=== PATIENT | male | born 1935 | race Caucasian/White ===

== ENCOUNTER 2022-12-10 19:00 | Emergency (ER) | payer MEDICARE, SELFPAY ==
[2022-12-10] VITALS (13 sets, daily range): BP systolic 128–163; BP diastolic 81–121; PULSE 84–131; RESP 14–23; TEMP 36.6; O2SAT 94–99; BMI 22.0
--- NOTE | 2022-12-10 19:03 | CT_ITS ---
We are attempting to reach an attending provider to discuss findings. An addendum with communication details will be sent when the communication is complete. STUDY: CT BRAIN WITHOUT CONTRAST REASON FOR EXAM: Male, 87 years old. Neuro deficit, acute, stroke suspected Individualized dose optimization techniques were used for this CT. TECHNIQUE: Transaxial CT imaging of the brain was performed without administration of intravenous contrast material. COMPARISON: None FINDINGS: There are calcifications noted in the distal vertebral arteries. There are calcifications noted in the cavernous carotid arteries. This is consistent for atherosclerotic disease. Normal calvarium. Normal soft tissues. There is mild cerebral atrophy with widening of the extra-axial spaces and ventricular dilatation. There are areas of decreased attenuation within the white matter tracts of the supratentorial brain, consistent with microvascular disease changes. Normal basal ganglia and thalami. Normal brainstem. There is mild cerebellar atrophy. There is no intracranial hemorrhage. There are no findings of an acute ischemic infarction. There is sinus disease. Left mastoidectomy changes with fluid in the left mastoid cell fluid. ASPECTS Score for Acute Strokes: 10/ CT/STROKE Brain/Head without Cont IMPRESSION: There are no acute findings. Chronic involutional changes of the brain. Electronically Signed: Tulio Lovett MD at 19:21 EST ,
--- NOTE | 2022-12-10 19:03 | CT_ITS ---
We are attempting to reach an attending provider to discuss findings. An addendum with communication details will be sent when the communication is complete. EXAM: CT ANGIOGRAPHY HEAD AND NECK WITH INTRAVENOUS CONTRAST CLINICAL INDICATION: Neuro deficit, acute, stroke suspected TECHNIQUE: [place] [facility] [place]/head and neck CT angiography protocol performed with intravenous contrast. This CT exam was performed using one or more of the following dose reduction techniques: automated exposure control, adjustment of the mA and/or kV according to patient size, and/or use of iterative reconstruction technique. This report was created using Narrative report 3KeyIt technology. MIP reconstructed images were created and reviewed. CONTRAST: IV 100mL Isovue-370 RADIATION DOSE: CTDIvol = 29.05 mGy, DLP = 647.39 mGy-cm COMPARISON: None. FINDINGS: HEAD: RIGHT ANTERIOR CEREBRAL ARTERY: Unremarkable. No significant stenosis at the visualized segments. Anterior communicating artery is present. No aneurysm. RIGHT MIDDLE CEREBRAL ARTERY: Unremarkable. No significant stenosis at the visualized segments. No aneurysm. RIGHT POSTERIOR CEREBRAL ARTERY: Unremarkable. No occlusion or significant stenosis. No aneurysm. RIGHT INTRACRANIAL INTERNAL CAROTID ARTERY: Unremarkable. No significant stenosis. No dissection or occlusion. RIGHT INTRACRANIAL VERTEBRAL ARTERY: Unremarkable. No significant stenosis. No dissection or occlusion. LEFT ANTERIOR CEREBRAL ARTERY: Unremarkable. No significant stenosis at the visualized segments. No aneurysm. LEFT MIDDLE CEREBRAL ARTERY: Unremarkable. No significant stenosis at the visualized segments. No aneurysm. LEFT POSTERIOR CEREBRAL ARTERY: Unremarkable. No occlusion or significant stenosis. No aneurysm. LEFT INTRACRANIAL INTERNAL CAROTID ARTERY: Unremarkable. No significant stenosis. No dissection or occlusion. LEFT INTRACRANIAL VERTEBRAL ARTERY: Unremarkable. No significant stenosis. No dissection or occlusion. BASILAR ARTERY: Unremarkable. No significant stenosis. No aneurysm. OTHER VASCULATURE: There is mild atherosclerotic plaque formation of the origin of the right internal carotid artery with less than 50% cross sectional diameter stenosis. ALL ABOVE CRITERIA BY NASCET. There is mild atherosclerotic plaque formation of the origin of the left internal carotid artery with less than 60% cross sectional diameter stenosis. ALL ABOVE CRITERIA BY NASCET. There is calcified plaque formation of the right cavernous carotid artery, with a mild stenosis (less than 50%). ALL ABOVE CRITERIA BY NASCET. There is calcified plaque formation of the left cavernous carotid artery, with a mild stenosis (less than 50%). ALL ABOVE CRITERIA BY NASCET. No vascular malformation. NECK: RIGHT COMMON CAROTID ARTERY: Unremarkable. No significant stenosis. No dissection or occlusion. RIGHT EXTRACRANIAL INTERNAL CAROTID ARTERY: Unremarkable. No significant stenosis. No dissection or occlusion. RIGHT EXTERNAL CAROTID ARTERY: Unremarkable. No occlusion. RIGHT EXTRACRANIAL VERTEBRAL ARTERY: Unremarkable. No significant stenosis. No dissection or occlusion. LEFT COMMON CAROTID ARTERY: Unremarkable. No significant stenosis. No dissection or occlusion. LEFT EXTRACRANIAL INTERNAL CAROTID ARTERY: Unremarkable. No significant stenosis. No dissection or occlusion. LEFT EXTERNAL CAROTID ARTERY: Unremarkable. No occlusion. LEFT EXTRACRANIAL VERTEBRAL ARTERY: Unremarkable. No significant stenosis. No dissection or occlusion. BRACHIOCEPHALIC AND SUBCLAVIAN ARTERIES: Unremarkable as visualized. No occlusion or significant stenosis. LUNG APICES: Unremarkable as visualized. HEAD and NECK: BONES/JOINTS: There are degenerative findings of the cervical spine. No discrete lytic or blastic abnormalities. SOFT TISSUES: Unremarkable. OTHER FINDINGS: Critical finding called and case discussed. CAROTID STENOSIS REFERENCE USING NASCET CRITERIA: % ICA stenosis = (1 - narrowest ICA diameter/diameter of distal cervical ICA) x 100. Mild - <50% stenosis. Moderate - 50-69% stenosis. Severe - 70-94% stenosis. Near occlusion - 95-99% stenosis. Occluded - 100% stenosis. CT/STROKE CTA Head AND Neck W/Con IMPRESSION: 1. There is mild atherosclerotic plaque formation of the origin of the right internal carotid artery with less than 50% cross sectional diameter stenosis. ALL ABOVE CRITERIA BY NASCET. 2. There is mild atherosclerotic plaque formation of the origin of the left internal carotid artery with less than 60% cross sectional diameter stenosis. ALL ABOVE CRITERIA BY NASCET. 3. There is calcified plaque formation of the right cavernous carotid artery, with a mild stenosis (less than 50%). ALL ABOVE CRITERIA BY NASCET. 4. There is calcified plaque formation of the left cavernous carotid artery, with a mild stenosis (less than 50%). ALL ABOVE CRITERIA BY NASCET. Electronically Signed: Tulio Lovett MD at 19:42 EST ,
--- NOTE | 2022-12-10 19:03 | EKG12_ITS ---
Test Reason : DYSRHYTHMIA Blood Pressure : / mmHG Vent. Rate : 124 BPM Atrial Rate : 141 BPM P-R Int : 178 ms QRS Dur : 090 ms QT Int : 280 ms P-R-T Axes : 007 -42 045 degrees QTc Int : 402 ms Atrial fibrillation Left axis deviation Inferior infarct , age undetermined Abnormal ECG Confirmed by MANJIT DAHL, BRIAN ([id number]), food editor SOFIYA CHAPA ([id number]) on 12/15/2022 12:40:04 PM Referred By: MARISSA Confirmed By:KORIN SARAVIA MD
--- NOTE | 2022-12-10 19:05 | EDS_ITS ---
HPI History of Present Illness Chief Complaint: Stroke Alert Narrative Narrative: -year-old male presenting with strokelike symptoms. Apparently at 1830 he was witnessed with these. Apparently had full left-sided weakness in the arm and leg, facial droop, slurred speech. EMS states that his daughter is a nurse and immediately reacted and called 911. Blood sugar was normal on scene he has rapidly improving symptoms. He states he still little bit weak on his left side in the arm and the leg. I do not visualize any facial droop on exam. Patient does report that he is on Coumadin. [facility] Medical History (Updated 12/10/22 @ 19:17 by Mamta Rojas) Afib Allergy/AdvReac Type Severity Reaction Status Date / Time No Known Allergies Allergy Verified 12/10/22 19:01 Social History Smoking Status: Never smoker ROS ROS ED Review of Systems ROS Unobtainable: Denies due to encephalopathy Constitutional Constitutional ED: Denies chills or fever(s) Eyes Eyes: Denies change in vision ENT ENT ED: Denies rhinorrhea or sore throat Cardiovascular Cardiovascular: Denies chest pain or palpitations Respiratory/Chest Respiratory/Chest: Denies cough or dyspnea Gastrointestinal Gastrointestinal: Denies abdominal pain, nausea or vomiting Genitourinary Genitourinary ED: Denies dysuria Neurologic Neurologic: Reports paresthesias LUE and LLE and weakness EXAM Physical Exam Const Vital Signs: 12/10/22 19:03 12/10/22 19:18 12/10/22 19:30 Temperature 97.8 F Temperature Source Temporal Pulse Rate 120 H Respiratory Rate 22 H Blood Pressure 163/121 H Blood Pressure Mean 135 Blood Pressure Source Blood Pressure Position Blood Pressure Location Pulse Ox 99 Oxygen Delivery Method Room Air Nasal Cannula Oxygen Flow Rate (L/min) 2 12/10/22 19:33 12/10/22 19:57 12/10/22 19:58 Temperature Temperature Source Pulse Rate 131 H 85 Respiratory Rate 21 H Blood Pressure 140/116 H 149/91 H 149/91 H Blood Pressure Mean 124 110 Blood Pressure Source Blood Pressure Position Blood Pressure Location Pulse Ox 94 Oxygen Delivery Method Nasal Cannula Oxygen Flow Rate (L/min) 2 12/10/22 19:44 12/10/22 19:59 12/10/22 20:14 Temperature Temperature Source Pulse Rate 87 85 87 Respiratory Rate 21 H 23 H 22 H Blood Pressure 140/85 H 138/91 H 141/119 H Blood Pressure Mean 103 106 126 Blood Pressure Source Monitor Monitor Monitor Blood Pressure Position Semi-Fowlers Semi-Fowlers Semi-Fowlers Blood Pressure Location Right Arm Right Arm Right Arm Pulse Ox 96 94 94 Oxygen Delivery Method Nasal Cannula Nasal Cannula Nasal Cannula Oxygen Flow Rate (L/min) 2 2 12/10/22 20:29 12/10/22 20:44 12/10/22 20:59 Temperature Temperature Source Pulse Rate 84 94 87 Respiratory Rate 14 22 H 21 H Blood Pressure 161/95 H 163/85 H Blood Pressure Mean 117 111 Blood Pressure Source Monitor Monitor Blood Pressure Position Semi-Fowlers Semi-Fowlers Blood Pressure Location Right Arm Right Arm Pulse Ox 97 95 97 Oxygen Delivery Method Room Air Room Air Room Air Oxygen Flow Rate (L/min) 12/10/22 21:14 12/10/22 21:29 Temperature Temperature Source Pulse Rate 91 91 Respiratory Rate 20 H 22 H Blood Pressure 128/81 H 147/92 H Blood Pressure Mean 96 110 Blood Pressure Source Monitor Monitor Blood Pressure Position Semi-Fowlers Semi-Fowlers Blood Pressure Location Right Arm Right Arm Pulse Ox 96 97 Oxygen Delivery Method Room Air Room Air Oxygen Flow Rate (L/min) Positive well nourished HEENT Reports moist mucous membranes Eyes PERRL and EOMs intact bilaterally Chest Wall inspection of chest normal Resp normal respiratory effort and clear to auscultation bilaterally Auscultation: rales and rhonchi Cardio Rate: tachycardic Rhythm: abnormal rhythm irregularly irregular GI normal to inspection, nondistended, normoactive bowel sounds Back/Spine no CVA tenderness Psych mental status grossly normal Skin no wounds NIHSS NIHSS Initial: 1a Level of Consciousness: 0 1b LOC Questions (Score 2 if aphasic/stupor): 0 1c LOC Commands (Only score 1st attempt): 0 2 Best Gaze (If aphasic, use reflexive mvmts.): 0 3 Visual: 0 4 Facial Palsy: 0 5 Motor Arm Right (UN = amputation/fusion): 0 5 Motor Arm Left: 0 6 Motor Leg Right: 0 6 Motor Leg Left: 1 7 Limb ataxia (Only + if out of proportion): 1 8 Sensory (Aphasia/stupor=0 or 1, coma=2): 1 9 Best Language: 1 10 Dysarthria (mute, coma=2, intubated=UN): 1 11 Extinction and Inattention (only scored if +): 0 Total Score: 5 MDM MDM MDM Narrative Medical decision making narrative: MildPresenting with acute strokelike symptoms. He does appear to be rapidly improving on my initial examination he was met at the door weakness in the left arm and the left leg but was able to hold his up off the bed. He stated that sensation was intact. He had no facial droop at that time. On reevaluation after he was sent for CT imaging entering back into the room his NIH stroke scale score was about the same but started worsening while getting neurologic exam by [facility]. I was called back to the room and the patient acutely had worsening in the left arm, left facial droop and slurred speech and even though the patient is on Coumadin Dr. Carlos stated that as long as his INR was less than 1.7 we should still give him tPA given his deficits. This was discussed at length with the family. They are amenable to this. INR returned at 1.3. To 138/91 prior to giving tenecteplase. CBC was obtained and shows no leukocytosis, hemoglobin medically stable. Platelets within normal limits. INR again subtherapeutic at 1.3. Renal function and electrolytes appear to be at baseline. CT of the brain and CTA were both negative for acute intracranial findings. Patient became acutely worse after receiving tenecteplase and on reevaluation he was having more facial drooping on the left, left arm drift and there was concern that he was deteriorating and was taken back to CT to have repeat CT of the brain performed and this is negative for acute findings as well. On reevaluation now currently after his NIH stroke score has improved to a 3. Given the patient's presentation and symptoms were improving we did go ahead and have him transferred to [facility] so if there is any further neurologic changes he can be assessed by neurosurgeon. Family was amenable to this they signed appropriate transfer paperwork. Patient also had A-fib today was given 20 mg of Cardizem which controlled his heart rate. Impression: 1. Strokelike symptoms 2. A-fib with RVR 3. Subtherapeutic INR Lab Data Attestation: I reviewed the patient's lab results. Labs: Laboratory Results - last 24 hr 12/10/22 12/10/22 12/10/22 19:15 19:15 19:15 WBC 9.4 RBC 4.26 L Hgb 13.5 Hct 41.4 MCV 97.2 H MCH 31.7 MCHC 32.6 RDW Std Deviation 49.1 H RDW Coeff of Jonn 14.0 Plt Count 282 MPV 9.0 Immature Gran % (Auto) 0.300 Neut % (Auto) 70.2 H Lymph % (Auto) 15.9 L [place] % (Auto) 9.7 Eos % (Auto) 3.5 Baso % (Auto) 0.4 Absolute Neuts (auto) 6.6 Absolute Lymphs (auto) 1.49 Nucleated RBC % 0 PT 15.9 H INR 1.3 APTT 34.3 Sodium 135 L Potassium 4.3 Chloride 101 Carbon Dioxide 26.0 Anion Gap 8 BUN 22 H Creatinine 1.27 Estim Creat Clear Calc 44.39 Est GFR (MDRD) Af Amer 69 Est GFR (MDRD) Non-Af 57 L BUN/Creatinine Ratio 17.3 Glucose 132 H Calcium 8.5 Troponin I High Sens 17 Radiography Diagnostic Testing: Clinical Impression(s) from Imaging Studies Brain CT 12/10/22 19:03 IMPRESSION: There are no acute findings. Chronic involutional changes of the brain. Electronically Signed: Tulio Lovett MD at 19:21 EST , ADDENDUM: 12/10/22 192 IMPRESSION: There are no acute findings. Chronic involutional changes of the brain. N.B. : The above Results were Read Back by Tulio Lovett MD to Gideon Velasquez MD, and understanding confirmed on 12/10/2022 19:22:15 (ET). Electronically Signed: Tulio Lovett MD at 19:21 EST , Head/Neck CTA 12/10/22 19:03 IMPRESSION: 1. There is mild atherosclerotic plaque formation of the origin of the right internal carotid artery with less than 50% cross sectional diameter stenosis. ALL ABOVE CRITERIA BY NASCET. 2. There is mild atherosclerotic plaque formation of the origin of the left internal carotid artery with less than 60% cross sectional diameter stenosis. ALL ABOVE CRITERIA BY NASCET. 3. There is calcified plaque formation of the right cavernous carotid artery, with a mild stenosis (less than 50%). ALL ABOVE CRITERIA BY NASCET. 4. There is calcified plaque formation of the left cavernous carotid artery, with a mild stenosis (less than 50%). ALL ABOVE CRITERIA BY NASCET. Electronically Signed: Tulio Lovett MD at 19:42 EST , ADDENDUM: 12/10/221948 IMPRESSION: 1. There is mild atherosclerotic plaque formation of the origin of the right internal carotid artery with less than 50% cross sectional diameter stenosis. ALL ABOVE CRITERIA BY NASCET. 2. There is mild atherosclerotic plaque formation of the origin of the left internal carotid artery with less than 60% cross sectional diameter stenosis. ALL ABOVE CRITERIA BY NASCET. 3. There is calcified plaque formation of the right cavernous carotid artery, with a mild stenosis (less than 50%). ALL ABOVE CRITERIA BY NASCET. 4. There is calcified plaque formation of the left cavernous carotid artery, with a mild stenosis (less than 50%). ALL ABOVE CRITERIA BY NASCET. N.B. : The above Results were Read Back by Tulio Lovett MD to Gideon Velasquez MD, and understanding confirmed on 12/10/2022 19:42:41 (ET). Electronically Signed: Tulio Lovett MD at 19:42 EST , Brain CT 12/10/22 20:23 IMPRESSION: There are no acute findings. Chronic involutional changes of the brain. Electronically Signed: Tulio Lovett MD at 20:46 EST , Stroke Documentation Questions Stroke Team Activated: Yes Reviewed Inclusion/Exclusion criteria: Yes Was Patient considered for Endovascular Intervention?: No-CTA negative, determined not to be an endovascular candidate IV Thrombolytic Administered: Yes No contraindications from thrombolytic administration: Yes Risks, Benefits, Alternatives Discussed: Yes Not given: Patient refusal: Yes Reasons for Thrombolytic Delay Care team unable to determine eligibility: Yes IV antihypertensives needed to reduce BP prior to Thrombolytic Administration: Yes Discharge Plan Triage Chief Complaint: Stroke Alert ED Provider: Gideon Velasquez Dx/Rx/DC Orders Primary Care Provider: Attila Riojas Referrals: Attila Riojas MD [Primary Care Provider] - Disposition Disposition: Acute Care Hospital Discharge Location: [facility] Discharge Date/Time: 12/10/22 21:35
[2022-12-10 19:28] LABS: Absolute Lymphocyte Count 1.49 X10^3/uL (0.83-4.51); Absolute Neutrophil Count 6.6 X10^3/uL (2.0-7.7); Basophil# 0.04 X10^3/uL; Basophil% 0.4 % (0-1); Eosinophil# 0.33 X10^3/uL; Eosinophils% 3.5 % (0-5); Hematocrit 41.4 % (40-54); Hemoglobin 13.5 g/dL (13.0-16.5); Lymphocyte # 1.49 X10^3/ul (0.83-4.51); Lymphocyte % 15.9 % (19-41); Mean Corp Hgb Conc 32.6 g/dL (32-36); Mean Corpuscular Hgb 31.7 pg (27.0-32.0); Mean Corpuscular Volume 97.2 fL (80-94); Monocyte# 0.91 X10^3/uL; Monocyte% 9.7 % (0-10); NRBC Flagged by Analyzer 0 % (0-5); Neutrophil # 6.59 X10^3/uL (2.7-7.7); Neutrophil % 70.2 % (47-70); Platelet Count 282 K/mm3 (150-450); RBC Distribution Width SD 49.1 fl (35.1-43.9); Red Blood Count 4.26 M/mm3 (4.6-6.2); White Blood Count 9.4 K/mm3 (4.4-11.0)
[2022-12-10 19:41] LABS: International Normalized Ratio 1.3; Prothrombin Time (Protime)PT. 15.9 SECONDS (11.7-14.9)
[2022-12-10 19:42] LABS: Anion Gap 8 (5-15); BUN 22 mg/dL (7-18); BUN/Creat Ratio 17.3 RATIO (10-20); Calcium,Total 8.5 mg/dL (8.5-10.1); Chloride 101 mmol/L (98-107); Creatinine, Serum 1.27 mg/dL (0.70-1.30); EST Glomerular Filtration Rate 57 mL/min (>60); Est Glom Filt Rate - Afr Amer 69 mL/min (>60); Estimated Creatinine Clearance 44.39 ml/min; Glucose 132 mg/dL (74-106); Partial Thromboplast Time 34.3 Seconds (24.1-36.2); Potassium 4.3 mmol/L (3.5-5.1); Sodium Level 135 mmol/L (136-145); Troponin-I HS 17 pg/mL (3.0-78.0)
[2022-12-10] MEDS: dilTIAZem 25 MG/5 ML Vial 20 MG IV BOLUS (19:48)
[2022-12-10] MEDS: TENECTEPLASE 2664 MG IV (19:58)
[2022-12-10] MEDS: 0.9% Normal Saline 1,000 ML 100 ML IV (20:00)
--- NOTE | 2022-12-10 20:23 | CT_ITS ---
STUDY: CT BRAIN WITHOUT CONTRAST REASON FOR EXAM: Male, 87 years old. STROKE Individualized dose optimization techniques were used for this CT. TECHNIQUE: Transaxial CT imaging of the brain was performed without administration of intravenous contrast material. COMPARISON: Study done earlier today. FINDINGS: There are calcifications noted in the distal vertebral arteries. There are calcifications noted in the cavernous carotid arteries. This is consistent for atherosclerotic disease. Normal calvarium. Normal soft tissues. There is mild cerebral atrophy with widening of the extra-axial spaces and ventricular dilatation. There are areas of decreased attenuation within the white matter tracts of the supratentorial brain, consistent with microvascular disease changes. Normal basal ganglia and thalami. Normal brainstem. There is mild cerebellar atrophy. There is no intracranial hemorrhage. There are no findings of an acute ischemic infarction. There is sinus disease. Left mastoidectomy changes with fluid in the left mastoid cell fluid. ASPECTS Score for Acute Strokes: 08/18 CT/Brain/Head without Contrast IMPRESSION: There are no acute findings. Chronic involutional changes of the brain. Electronically Signed: Tulio Lovett MD at 20:46 EST ,
--- NOTE | 2022-12-10 20:35 | HP.PCM.HOS_ITS ---
HPI - General HPI Narrative AFSANEH AMADO, is a 87 M who presents [facility] Medical History (Updated 12/10/22 @ 19:17 by Mamta Rojas) Afib Allergy/AdvReac Type Severity Reaction Status Date / Time No Known Allergies Allergy Verified 12/10/22 19:01 Social History Smoking Status: Never smoker Vital Signs Vital Signs Vital Signs: 12/10/22 19:03 12/10/22 19:18 12/10/22 19:30 Temperature 97.8 F Temperature Source Temporal Pulse Rate 120 H Respiratory Rate 22 H Blood Pressure 163/121 H Blood Pressure Mean 135 Blood Pressure Source Blood Pressure Position Blood Pressure Location Pulse Ox 99 Oxygen Delivery Method Room Air Nasal Cannula Oxygen Flow Rate (L/min) 2 12/10/22 19:33 12/10/22 19:57 12/10/22 19:58 Temperature Temperature Source Pulse Rate 131 H 85 Respiratory Rate 21 H Blood Pressure 140/116 H 149/91 H 149/91 H Blood Pressure Mean 124 110 Blood Pressure Source Blood Pressure Position Blood Pressure Location Pulse Ox 94 Oxygen Delivery Method Nasal Cannula Oxygen Flow Rate (L/min) 2 12/10/22 19:44 12/10/22 19:59 12/10/22 20:14 Temperature Temperature Source Pulse Rate 87 85 87 Respiratory Rate 21 H 23 H 22 H Blood Pressure 140/85 H 138/91 H 141/119 H Blood Pressure Mean 103 106 126 Blood Pressure Source Monitor Monitor Monitor Blood Pressure Position Semi-Fowlers Semi-Fowlers Semi-Fowlers Blood Pressure Location Right Arm Right Arm Right Arm Pulse Ox 96 94 94 Oxygen Delivery Method Nasal Cannula Nasal Cannula Nasal Cannula Oxygen Flow Rate (L/min) 2 2 Weight Weight: 73.8 kg Body Mass Index (BMI) 22.0 Results Lab / Micro Data Result Diagrams: 12/10/22 19:15 12/10/22 19:15 Labs: Laboratory Results - last 24 hr 12/10/22 19:15: WBC 9.4, RBC 4.26 L, Hgb 13.5, Hct 41.4, MCV 97.2 H, MCH 31.7, MCHC 32.6, RDW Std Deviation 49.1 H, RDW Coeff of Jonn 14.0, Plt Count 282, MPV 9.0, Immature Gran % (Auto) 0.300, Neut % (Auto) 70.2 H, Lymph % (Auto) 15.9 L, [place] % (Auto) 9.7, Eos % (Auto) 3.5, Baso % (Auto) 0.4, Absolute Neuts (auto) 6.6, Absolute Lymphs (auto) 1.49, Nucleated RBC % 0 12/10/22 19:15: PT 15.9 H, INR 1.3, APTT 34.3 12/10/22 19:15: Sodium 135 L, Potassium 4.3, Chloride 101, Carbon Dioxide 26.0, Anion Gap 8, BUN 22 H, Creatinine 1.27, Estim Creat Clear Calc 44.39, Est GFR (MDRD) Af Amer 69, Est GFR (MDRD) Non-Af 57 L, BUN/Creatinine Ratio 17.3, Glucose 132 H, Calcium 8.5, Troponin I High Sens [address] 12/10/22 19:03 IMPRESSION: There are no acute findings. Chronic involutional changes of the brain. Electronically Signed: Tulio Lovett MD at 19:21 EST , ADDENDUM: 12/10/22 1929 IMPRESSION: There are no acute findings. Chronic involutional changes of the brain. N.B. : The above Results were Read Back by Tulio Lovett MD to Gideon Velasquez MD, and understanding confirmed on 12/10/2022 19:22:15 (ET). Electronically Signed: Tulio Lovett MD at 19:21 EST , Head/Neck CTA 12/10/22 19:03 IMPRESSION: 1. There is mild atherosclerotic plaque formation of the origin of the right internal carotid artery with less than 50% cross sectional diameter stenosis. ALL ABOVE CRITERIA BY NASCET. 2. There is mild atherosclerotic plaque formation of the origin of the left internal carotid artery with less than 60% cross sectional diameter stenosis. ALL ABOVE CRITERIA BY NASCET. 3. There is calcified plaque formation of the right cavernous carotid artery, with a mild stenosis (less than 50%). ALL ABOVE CRITERIA BY NASCET. 4. There is calcified plaque formation of the left cavernous carotid artery, with a mild stenosis (less than 50%). ALL ABOVE CRITERIA BY NASCET. Electronically Signed: Tulio Lovett MD at 19:42 EST , ADDENDUM: 12/10/221948 IMPRESSION: 1. There is mild atherosclerotic plaque formation of the origin of the right internal carotid artery with less than 50% cross sectional diameter stenosis. ALL ABOVE CRITERIA BY NASCET. 2. There is mild atherosclerotic plaque formation of the origin of the left internal carotid artery with less than 60% cross sectional diameter stenosis. ALL ABOVE CRITERIA BY NASCET. 3. There is calcified plaque formation of the right cavernous carotid artery, with a mild stenosis (less than 50%). ALL ABOVE CRITERIA BY NASCET. 4. There is calcified plaque formation of the left cavernous carotid artery, with a mild stenosis (less than 50%). ALL ABOVE CRITERIA BY NASCET. N.B. : The above Results were Read Back by Tulio Lovett MD to Gideon Velasquez MD, and understanding confirmed on 12/10/2022 19:42:41 (ET). Electronically Signed: Tulio Lovett MD at 19:42 EST ,
== END 2022-12-10 21:35 | disposition short-term general hospital (02) ==
PROVIDERS: Emergency Provider Student in an Organized Health Care Education/Training Program; PCP Family Medicine; Visit Provider Student in an Organized Health Care Education/Training Program
DX: I65.23 Occlusion and stenosis of bilateral carotid arteries (principal); I48.91 Unspecified atrial fibrillation; R47.81 Slurred speech; R53.1 Weakness; R29.810 Facial weakness
CPT/HCPCS: 51702; 70450; 70496; 70498; 80048; 84484; 85025; 85610; 85730; 93005; 96361; 96374; 96375; 99285; J3101; Q9967; A4216; J3490

== ENCOUNTER 2022-12-22 12:43 | Inpatient (IN) | payer MEDICARE, BC, SELFPAY ==
[2022-12-22 12:48] VITALS: BP 115/84; PULSE 74; RESP 16; TEMP 36.2; O2SAT 96; BMI 19.0
--- NOTE | 2022-12-22 15:29 | EX.PCM.HP.RE ---
[facility] - General General Date of Admission: 12/22/22 Date of Service: 12/22/22 Chief Complaint: Post stroke debility. HPI Narrative AFSANEH AMADO, is a 87 YO M with a PMH of hypertension and atrial fibrillation (on warfarin) who presented to the ED at [facility] on 12/10/22 with c/o L side weakness in the arm/leg, facial droop and slurred speech. His daughter had called 911 and he was immediately taken to the emergency department at onset of symptoms. By the time he arrived in the emergency department his symptoms were improving. His NIHSS was 5. A noncontrast CT brain showed no acute findings. CTA of the head and neck showed mild atherosclerotic plaque formation of the origin of the right internal carotid artery with less than 50% cross-sectional diameter stenosis. There was mild atherosclerotic plaque at the origin of the left internal carotid artery with less than 60% cross-sectional diameter stenosis. There was calcified plaque of the right cavernous carotid artery with a mild stenosis estimated at less than 50% and also calcified plaque of the left cavernous carotid artery also estimated at less than 50%. Consult was obtained with [facility] teleneurology. While being interviewed by Dr. Carlos from [facility] the patient's symptoms once again acutely worsened with left arm weakness, left facial droop and slurred speech. Since his INR was only 1.3 IV tPA was recommended. He was administered tenecteplase at [facility] and again his condition worsened. He went for a NC CTB and which was negative for bleeding. He was transferred to [facility] for further neurologic tx. He was in AF while in the ED and he was given 20 mg of IV diltiazem for rate control. At arrival to [facility] his NIHSS was 1 for dysarthria. MRI at [facility] showed a punctate focus of restricted diffusion in the right frontal opercular region in keeping with a small acute infarct. Repeat CTB 24 hours after tenecteplase showed no hemorrhage. Significant lab included an LDL of 96, HDL of 35 and an hemoglobin A1c of 5.7. Since the infarct was small he was restarted on anticoagulation with Coumadin and heparin bridge. The family cannot afford Eliquis. He was maintained on statin and ASA as well. CXR at [facility] showed small BL pleural effusions with prominent R hilar node and R axillary node of uncertain significance. There was also an age indeterminant L1 superior endplate compression fracture. While at [facility] he also had a CT scan of the abdomen and pelvis with contrast that showed a wedged shaped area of hypoattenuation in the spleen concerning for infarct, prominent irregular wall thickening at the gastroesophageal junction extending into the gastric cardia and concerning for an infiltrative neoplastic lesion, multiple areas of irregular wall thickening and mucosal hyperenhancement and segments of the ileum, some of which appeared narrowed. He also had cholelithiasis and colonic diverticulosis. An EGD was apparently done on 12/19/22 but, we are told there is no report yet? A bx was done and the pathology is pending. They also do not have a report of the ECHO yet. All paperwork sent to us by [facility] was personally reviewed along with the ER physician's report from [facility] on 12/10/2022. Vital signs at presentation to rehab include blood pressure 115/84, pulse 74, temp 97.1 and he is 96% saturated on room air. [facility] Medical History (Updated 12/23/22 @ 13:[address] Eliana Sidhu DO) Afib Chronic anticoagulation HTN (hypertension) Stroke/cerebrovascular accident Home Medications apixaban 5 mg tablet 5 mg PO BID blood thinner 12/22/22 [History Last Taken Unknown] atorvastatin 40 mg tablet 40 mg PO QHS reduce cholesterol 12/22/22 [History Last Taken Unknown] hydroxyzine HCl 25 mg tablet 12.5 mg PO TID PRN Anxiety 12/22/22 [History Last Taken Unknown] losartan 50 mg tablet 50 mg PO DAILY bp 12/22/22 [History Last Taken Unknown] metoprolol tartrate 100 mg tablet 100 mg PO DAILY@2200 bp 12/22/22 [History Last Taken Unknown] metoprolol tartrate 50 mg tablet 50 mg PO DAILY bp 12/22/22 [History Last Taken Unknown] Allergy/AdvReac Type Severity Reaction Status Date / Time No Known Allergies Allergy Verified 12/10/22 19:01 Family History (Updated 12/23/22 @ 13:[address] Eliana Sidhu DO) Father Mental health problem His father and some of his brothers committed suicide. Pt tells me mental health problems go deep in the family. in his late 50's Mother Cancer She at the age of 68 from a cancer that was in her abdomen. Surgical History (Updated 12/23/22 @ 13:[address] Eliana Sidhu DO) History of appendectomy History of ear surgery History of knee surgery Social History (Updated 12/23/22 @ 13:[address] 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 [employer] Smoking Status: Never smoker alcohol intake: never substance use type: does not use ROS Constitutional Constitutional: Reports anorexia, change in weight, fatigue, weakness and weight loss; Denies chills, fever(s) or night sweats Eyes Eyes: Denies change in vision or discharge from eye(s) ENT HEENT: Denies dysphagia, epistaxis, headache(s), loss taste/smell or sore throat Cardiovascular Cardiovascular: Denies chest pain, edema, palpitations or syncope Respiratory/Chest Respiratory/Chest: Denies cough or shortness of breath at rest Gastrointestinal Gastrointestinal: Reports abdominal pain, dyspepsia, nausea, vomiting and other Details: sometimes vomits what looks like undigested food ; Denies constipation, diarrhea, hematemesis or hematochezia Genitourinary Genitourinary: Denies dysuria, hematuria, urinary frequency or urinary incontinence Musculoskeletal Musculoskeletal: Reports muscle weakness, stiffness and other Details: Weakness is more than likely due to marked weight loss since last April.......he estimates about 7 lbs a month..... confirms he has lost a lot of wt. Appetite is poor and he tells me that food does not look good. Integumentary Integumentary: Reports dry skin; Denies jaundice, pruritus, rash or wounds Neurologic Neurologic: Reports tremor(s) and other Details: Carie tells me that over the last 1-2 months he has developed tremors with exertion ; Denies abnormal speech, confusion, dizziness, focal weakness, headache(s), numbness or seizures Psychiatric Psychiatric: Reports other Details: No hallucinations or delusions. Tells me that he is sleeping well and does not feel depressed. He told the OT that he had been awake since 3 AM. ; Denies anxiety, depression, homicidal ideation or suicidal ideation Endocrine Endocrinology: Reports change in body appearance; Denies cold intolerance or heat intolerance Hematologic/Lymphatic Hematologic/Lymphatic: Reports easy bleeding and easy bruising; Denies anemia or lymphadenopathy Vital Signs Vital Signs Vital Signs: 12/22/22 12:48 Temperature 97.1 F L Temperature Source Temporal Pulse Rate 74 Respiratory Rate 16 Blood Pressure 115/84 H Blood Pressure Mean 94 Blood Pressure Source Monitor Blood Pressure Position Sitting Blood Pressure Location Right Arm Pulse Ox 96 Oxygen Delivery Method Room Air Weight Weight: 140 lb Body Mass Index (BMI) 19.0 Indicators for Scoring Admitted with or Primary Diagnosis of CVA/Stroke: Yes Hx of CVA/Stroke: Yes Modified [place] Score MRS Score at time of Evaluation: 4-Moderate/severe disability NIHSS NIHSS 1a. Level of Consciousness: Alert; keenly responsive 1b. LOC Questions: Answers BOTH questions correctly. 1c. LOC Commands: Performs both tasks correctly. 2. Best Gaze: Normal 3. Visual: No visual loss 4. Facial Palsy: Normal symmetrical movements 5a. Left Arm: No drift; arm holds 90 (or 45) degrees for full 10 seconds 5b. Right Arm: No drift; arm holds 90 (or 45) degrees for full 10 seconds 6a. Left Leg: No drift; leg holds 30-degree position for full 5 seconds 6b. Right Leg: No drift; leg holds 30-degree position for full 5 seconds 7. Limb Ataxia: Absent 8. Sensory: Normal; no sensory loss 9. Best Language: No aphasia; normal 10. Dysarthria: [id number] dysarthria; 11. Extinction and Inattention: No abnormality Total: 1 Stroke Questions Stroke Team Activated: No Physical Exam Const Constitutional Narrative: He is awake, looks very fatigued. Sitting in the recliner at the bedside and does not appear to be in any distress. Lunch is in front of him and he barely touched it......sample maker hand sent up a magic cup and an Ensure Clear for him. General Appearance: cooperative HEENT normocephalic and head/scalp atraumatic Mouth: dry mucous membranes Eyes EOMs intact bilaterally Neck no lymphadenopathy, supple, no JVD and no carotid bruits General: trachea midline Lymph Lymphatic: no lymphadenopathy noted and no lymphedema noted Resp normal respiratory effort, normal air movement and clear to auscultation bilaterally Effort and Inspection: Negative for tachypneic Cardio no gallops Cardio Narrative: He has a systolic MM at the second right intercostal space that radiates to the apex. The rhythm is irreg, irreg. Heart sounds are a little distant, hua for someone so thin GI normal to inspection, nondistended, normoactive bowel sounds, soft to palpation, non-tender and non-distended GI Narrative: no guarding with palpation. Extremity no calf tenderness General Extremity: Negative for clubbing, cyanosis or edema Skin General Skin Exam: no breakdown Rashes: no rashes Neuro CN's II-XII intact bilaterally Neuro Narrative: He has no sensory deficits, no visual field cuts and no ataxia. He does have generalized weakness. Having some trouble following simple commands like, hold your breath and follow my finger with your eyes and don/t move your head. He has slurred speech. Coordination / Balance: [id number] test normal and [id number] test normal Motor Exam: general weakness Psych cooperative, denies homicidal ideation and denies suicidal ideation Psych Narrative: Very flat affect. Does not make eye contact with me when he is talking with me. Tends to ramble and lose concentration/focus at times. Seems to be quite intelligent when I am talking to him. OT made a comment that he is not aware of his deficits and he fatigues easily. Appearance: appropriate Results Lab / Micro Data Result Diagrams: 12/23/22 06:42 12/23/22 06:42 Assessment & Plan Assessment/Plan (1) Physical debility: (2) Stroke/cerebrovascular accident: PLAN: Punctate focus of restricted diffusion in the right frontal opercular region in keeping with a small acute infarct on MRI. (3) Afib: PLAN: Chronic persistent. (4) Weight loss, unintentional: (5) Abnormal CT of the abdomen: PLAN: We contacted [facility] for results of the EGD, ECHO and path reports and were told there are no reports yet. Will continue to call daily until we have these reports. (6) Nausea & vomiting: PLAN: Etiology undetermined at this time. (7) HTN (hypertension): (8) Compression fracture of L1 lumbar vertebra: (9) Macrocytosis without anemia: (10) Chronic anticoagulation: PLAN: Currently on Eliquis. PLAN: Plan PLAN PT for gait stability OT for ADL's ST for evaluation Analgesics as needed Bowel protocol Fall precautions Assess for Anxiety/Depression GI prophylaxis - he did not come to us on anything for prophylaxis.....this makes me think there is no gastritis or PUD or esophagitis on the EGD. DVT prophylaxis - He is on Eliquis 5 mg BID for recent embolic stroke due to AF with subtherapeutic INR. Follow up with PCP, cardiology, neurology following DC from [facility]. I am suspicious he may have CA.......additional F/U as needed will be arranged prior to DC. AM lab including CMP, CBC, Mag and Phos - personally reviewed. Will also get a TSH in light of unintentional wt loss and AF with RVR. Obtain records from PCP Obtain the results of the EGD, ECHO and the path report from biopsies taken at the time of EGD. Try Reglan for nausea at 2.5 mg TID AC. He eats well for breakfast but for the rest of the day he is nauseated and does not even want to look at food. Hesitant about admitting to early satiety. Charges/Coding Visit Charges Inpatient E&M: 00479 Init Hosp L3
--- NOTE | 2022-12-22 16:02 | REHABEVAL_ITS ---
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 Status Changes from Prescreening?: No changes Identified Actual Problem List:: Cognitve Impr/Memory Loss, Bowel, Incontinence, Alteration in Nutrition, Mobility Impaired, Self Care Deficit, BP, Hypertension, Fluid Change-Dehydration and Alteration-Leisure Activ. Potential Problem List:: DVT, Bleeding, Infection, UTI, Aspiration, Falls, Skin Integrity and Depression Risk of Complications DVT: SHERRY Hose and - (Eliquis 5 mg p.o. twice daily) Bleeding: Monitor Lab Values, Nursing to Teach Precautions for anti-coagulation therapy., Wound, if applicable, to be assessed every shift. and Stroke patients assessed for lethargy or change in status. Infection: Clinical Staff to Monitor for S/S of infection: and S/S of infection include fever, redness, warmth, etc. Urinary Tract Infection: Monitor for frequency, burning, discomfort, or incontinence. and Nursing will obtain urine sample for urinalysis and C&S when ordered. Aspiration: Clinical staff will monitor for coughing, drooling, congestion., Speech will evaluate swallowing and dsyphasia. and Nursing will monitor patient swallowing during meals. Falls: Patient will be evaluated for Fall Precautions and Patient will be placed on Fall Precautions as indicated per protocol. Skin Breakdown: Nursing will assess skin daily using assessment tool. and Nursing will place on Skin Breakdown Precautions as indicated. Pain: Clinical staff will assess patient's pain level per protocol., Medications will be given, if needed, and the pain level reassessed. and Other methods: Massage, distraction, decrease stimulus, etc. used PRN. Plan of Care Patient requires physician specializing in physical medicine and rehab oversight to provide close medical supervision of rehab issues including: Pain Management, Sleep Problems, Bowel and Bladder, Medical and co-morbidity Management, DVT prophylaxis, Rehabilitation Leadership and Coordination of treatment team Patient needs Physical Therapy: For a minimum of 1 hour and At least 5 out of 7 days Patient needs Physical Therapy to improve:: Mobility, Strengthening, Transfers, Stretching, ROM, Endurance, Stairs, Gait and Balance Patient needs Occupational Therapy: For a minimum of 1 hour and At least 5 out of 7 days Patient needs Occupational Therapy to improve ADL's incl.: Eating, Grooming, Bathing, Dressing, Toileting, Toilet transfers, Community Reintegration, Higher functioning activities, Household tasks, Adaptive Equipment, Splinting and Other activities as determined Patient requires speech therapy: For a minimum of 1 hour and At least 5 out of 7 days Patient requires speech therapy for: Swallowing, Cognition, Language Skills and Compensatory Strategies Patient requires 24/7 Rehabilitation Nursing for: Pain Issues, Identifying and preventing risk factors, Monitoring and reporting current medical conditions, Assisting with ambulation, transfer, and all ADL's, Teaching patients about disease process and medications, Family teaching, Providing safe environment, Bowel and Bladder Issues, Skin integrity and Medication Management Patient needs Respiratory Care Specialist/ Case Management for: Discharge Planning, Arranging Home Equipment or Services and Family Interventions Patient needs Dietary and Nutrition Services for: Adequate Nutrition, Nutritional Supplements and Nutritional Education Goals Patient will remain: free from falls and or injury at time of discharge. Patient will perform bed mobility at: MOD I level of assist. Patient will complete transfers from bed to chair at: MOD I level of assist. Patient will ambulate: with LRD and - (350 feet on various surfaces at standby assist) Patient will complete upper body dressing at: MOD I level of assist. Patient will complete lower body dressing at: MOD I level of assist. Patient will complete toileting at: MOD I level of assist. Patient will perform bathing at: MOD I level of assist. Patient will complete grooming at: MOD I level of assist. Patient will complete home management skills at: MOD I level of assist. Patient will achieve: - (1 curb step and 12 steps with 2 handrails at standby assist to allow access to his bedroom at home. ) Patient will have pain level of: of 3 or less Patient's skin will: remain intact Patient will receive: adequate nutrition. Discharge Planning Pt Prognosis for Sig. Practical Improv. w/in Reasonable Time: Good Estimated Length of stay (days): 21 Anticipated D/C Destination: Home with Outpt Therapy Was Preadmission Assessment Accurate?: Yes
[2022-12-22 16:30] VITALS: O2SAT 96
--- NOTE | 2022-12-22 18:02 | NURSING ---
Son, , and patient aware of rehab routine. Patient alert and oriented but needs some cognitive cues to complete tasks.
[2022-12-22 20:00] VITALS: BP 117/63; PULSE 72; RESP 17; TEMP 37.3; O2SAT 97
[2022-12-22] MEDS: Atorvastatin Calcium 40 MG Tablet PO (21:52)
[2022-12-22 21:53] VITALS: BP 117/63; PULSE 72
[2022-12-22] MEDS: Metoprolol Tartrate 100 MG Tablet PO (21:53)
[2022-12-22] MEDS: APIXABAN 5 MG TABLET PO (21:54)
[2022-12-23] VITALS (7 sets, daily range): BP systolic 117–140; BP diastolic 66–71; PULSE 73–85; RESP 16; TEMP 36.5–37.3; O2SAT 94–99; BMI 19.0
--- NOTE | 2022-12-23 03:49 | NURSING ---
Reviewed and agree with Stephenie RAMESH, documentation and assessment charting.
--- NOTE | 2022-12-23 05:58 | NURSING ---
staff to assist pt with getting a shower and when dressing pt reports that he is feeling weak and dizzy. pt reports that this happens from time to time. pt escorted over the to recliner and blood sugar taken and was found to be 83. bp was 140/71 and ap was 79. pt stated he thought that it was d/t all the movement in the shower and the heat. pt given orange juice and instructed to drink it all and pt acknowledged. pt reports that since he has been in the recliner he is feeling better. rn made aware .
[2022-12-23 06:31] LABS: Bedside Glucose 83 mg/dL (74-106)
[2022-12-23 06:58] LABS: Hematocrit 43.1 % (40-54); Hemoglobin 13.8 g/dL (13.0-16.5); Mean Corpuscular Hgb 32.1 pg (27.0-32.0); Mean Corpuscular Volume 100.2 fL (80-94); Mean Platelet Vol. 8.9 fl (6.2-12.0); Platelet Count 339 K/mm3 (150-450); RBC Distribution Width CV 14.9 % (11.6-14.6); RBC Distribution Width SD 52.4 fl (35.1-43.9); White Blood Count 8.8 K/mm3 (4.4-11.0)
[2022-12-23 07:25] LABS: ALB/GLOB Ratio 0.8 RATIO (0.9-2.4); AST(SGOT) 20 U/L (15-37); Alanine Aminotransfer ALT/SGPT 20 U/L (16-61); Albumin, Serum 3.1 g/dL (3.2-5.0); Alkaline Phosphatase 63 U/L (45-117); Anion Gap 8 (5-15); BUN 46 mg/dL (7-18); BUN/Creat Ratio 37.7 RATIO (10-20); Calcium,Total 9.1 mg/dL (8.5-10.1); Chloride 108 mmol/L (98-107); Creatinine, Serum 1.22 mg/dL (0.70-1.30); EST Glomerular Filtration Rate 60 mL/min (>60); Est Glom Filt Rate - Afr Amer 73 mL/min (>60); Estimated Creatinine Clearance 39.89 ml/min; Globulin 3.9 g/dL (2.2-4.2); Glucose 92 mg/dL (74-106); Magnesium 2.3 mg/dL (1.6-2.6); Potassium 4.9 mmol/L (3.5-5.1); Sodium Level 143 mmol/L (136-145)
[2022-12-23] MEDS: Losartan Potassium 50 MG Tablet PO (09:48)
[2022-12-23] MEDS: Ensure Plus High Protein 120 ML LIQUID PO ×2 (09:49→20:23)
[2022-12-23] MEDS: Senna/Docusate Sodium 1 Tablet 2 TABLET PO (09:49)
[2022-12-23] MEDS: APIXABAN 5 MG TABLET PO ×2 (09:49→20:22)
[2022-12-23] MEDS: Metoprolol Tartrate 50 MG Tablet PO (09:50)
--- NOTE | 2022-12-23 11:20 | PN_ITS ---
Subjective Subjective Afebrile - He had 1 temp of 99.2 last night. He denies having fevers or night sweats or shaking chills. VSS - BP is controlled, HR is WNL Maintaining appropriate oxygen saturation on RA Oral intake is poor for supper last night.....he ate only 25-49% but, he ate 75- 100% of his breakfast this AM. Tells me that breakfast is his best meal......after that he gets nauseated even looking at food. Wt today is 140.4........it was supposedly 162 on 12/10/22. He told me yesterday that he has been losing 7 lbs a month since last April. Discussed with nursing - no problems that need addressed Reviewed the PT/OT/ST notes Medication list reviewed. The note from [facility] states he will be on Coumadin however, they sent him to us on Eliquis which they said he could not afford. Will need to check with his insurance provider. All labs from this AM was personally reviewed. White blood cell count and platelet count are within normal limits. Hemoglobin is normal at 13.8 and the MCV is elevated at 100.2. Phosphorus, magnesium and calcium are all within normal limits. LFTs are unremarkable with the exception of a mildly increased total bilirubin at 1.2. Girish denies lightheadedness, vertigo, CP, SOB at rest, SOB with exertion, cough, abd pain, diarrhea, constipation, dysuria, calf pain and ankle swelling. He does c/o nausea.....no vomiting since admission to rehab. He was incontinent of stool today. Fatigues very easily and he has generalized weakness. Objective Data Objective Data Vital Signs: Vital Signs Temp Pulse Resp BP Pulse Ox O2 Del Method 99.1 F 73 16 140/71 H 99 Room Air 12/23/22 08:16 12/23/22 09:50 12/23/22 08:16 12/23/22 08:16 12/23/22 08:16 12/23/22 08:16 Oxygen Delivery Method Room Air Weight: 140 lb 6.951 oz Body Mass Index (BMI) 19.0 Intake & Output: Intake and Output for Last 24 Hours 12/21/22 12/22/22 12/23/22 23:59 23:59 23:59 Intake Total 120 / 120 Output Total 200 / 200 350 / 350 Balance -200 / -200 -230 / -230 Lab / Micro Data Result Diagrams: 12/23/22 06:42 12/23/22 06:42 Labs: Laboratory Results - last 24 hr 12/23/22 05:40: POC Glucose 83 12/23/22 06:42: WBC 8.8, RBC 4.30 L, Hgb 13.8, Hct 43.1, MCV 100.2 H, MCH 32.1 H , MCHC 32.0, RDW Std Deviation 52.4 H, RDW Coeff of Jonn 14.9 H, Plt Count 339, MPV 8.9 12/23/22 06:42: Sodium 143, Potassium 4.9, Chloride 108 H, Carbon Dioxide 27.0, Anion Gap 8, BUN 46 H, Creatinine 1.22, Estim Creat Clear Calc 39.89, Est GFR (MDRD) Af Amer 73, Est GFR (MDRD) Non-Af 60, BUN/Creatinine Ratio 37.7 H, Glucose 92, Calcium 9.1, Phosphorus 3.0, Magnesium 2.3, Total Bilirubin 1.20 H, AST 20, ALT 20, Alkaline Phosphatase 63, Total Protein 7.0, Albumin 3.1 L, Globulin 3.9, Albumin/Globulin Ratio 0.8 L Physical Exam Const Constitutional Narrative: appears fatigued but he is appropriate and able to converse with me. General Appearance: cooperative HEENT Mouth: dry mucous membranes Resp normal respiratory effort and clear to auscultation bilaterally Effort and Inspection: Negative for tachypneic Cardio Cardio Narrative: Irregular irregular rhythm with controlled ventricular response and no gallops. GI normal to inspection, nondistended, normoactive bowel sounds, soft to palpation and non-tender GI Narrative: No guarding with palpation Extremity no calf tenderness General Extremity: Negative for edema Skin Skin Narrative: many areas of ecchymosis on the UE's hua. No very large areas. General Skin Exam: no breakdown Rashes: no rashes Wounds: Negative for wounds noted Assessment & Plan Assessment/Plan (1) Physical debility: (2) Stroke/cerebrovascular accident: PLAN: Punctate focus of restricted diffusion in the right frontal opercular region in keeping with a small acute infarct on MRI. (3) Afib: PLAN: Chronic persistent. (4) Weight loss, unintentional: (5) Abnormal CT of the abdomen: PLAN: We contacted [facility] for results of the EGD, ECHO and path reports and were told there are no reports yet. Will continue to call daily until we have these reports. (6) Nausea & vomiting: PLAN: Etiology undetermined at this time. (7) HTN (hypertension): (8) Compression fracture of L1 lumbar vertebra: (9) Macrocytosis without anemia: (10) Chronic anticoagulation: PLAN: Currently on Eliquis. PLAN: Plan 1. Continue therapy 2. Discussed with the dietitian and she is going to provide nutritional supplements that are high in calories and high in protein in light of severe protein calorie malnutrition. I would like to see what he weighed on his most recent PCP visit and we have requisitioned from Dr. Riojas. 3. He presents as being depressed with flat affect, poor eye contact, trouble focusing, poor appetite BUT pt and deny depression. He also told the OT he is having trouble sleeping and has been awake since 3 AM. Will continue to monitor closely over the next few days........may discuss and antidepressant with him if he is not sleeping. Would use Remeron in light of insomnia and poor appetite. 4. Obtain the results of EGD and ECHO done at [facility] and also the bx report from path. 5. await the results of the TSH and if it is abn will check a T4 and a T3. Charges/Coding Visit Charges Inpatient E&M: 32831 Subs Hosp L2
--- NOTE | 2022-12-23 13:43 | NURSING ---
Medical records request faxed to [facility] per Dr. Sidhu
[2022-12-23 14:51] LABS: Thyroid Stim Hormone (TSH) 9.73 uIU/mL (0.358-3.74)
--- NOTE | 2022-12-23 15:02 | CASEMGMT ---
Social Work Attempted to visit pt to complete assessment. Pt asleep. Judy Del Rosario, [employer]
--- NOTE | 2022-12-23 15:31 | CHAPLAIN ---
Type of Pastoral Visit _x__ Initial Visit ___ Follow-up Visit ___ On-call Visit ___ General Patient Visit ___ Spiritual Assessment ___ Family Conference ___ Bereavement ___ Rapid Response ___ Code Blue ___ Other (describe below) Pastoral Care Referral From _x__ Patient _x__ Family ___ Nurse ___ Physician ___ Chief Librarian Extension Department ___ Microbiology Teacher ___ Other (describe below) Sacrament/Intervention ___ Active listening ___ Anointing ___ Yarsani ___ Bereavement ___ Communion ___ Natalia exploration ___ ___ Life review _x__ Prayer ___ Reconciliation ___ Sacrament of Sick _x__ Supportive presence ___ Wedding ___ Other (describe below) Pastoral Comments patient was sleeping but awoke to his name; pt responded to this wet room worker but kept his eyes closed; pt stated that he was fine but a prayer would be fine; prayer offered; pt denied more needs and was ready for more nap time
[2022-12-23 16:32] LABS: T4 Free Direct 1.12 ng/dL (0.76-1.46)
[2022-12-23] MEDS: Metoclopramide 5 MG TABLET 2.5 MG PO (16:36)
--- NOTE | 2022-12-23 18:24 | NURSING ---
Request faxed for medical records to Dr. Riojas's office with Any Ibarra per Dr. Sidhu request.
[2022-12-23] MEDS: Atorvastatin Calcium 40 MG Tablet PO (20:22)
[2022-12-23] MEDS: Metoprolol Tartrate 100 MG Tablet PO (20:22)
--- NOTE | 2022-12-24 03:00 | NURSING ---
0230 pt bed alarm going off, by the time staff got to the room pt was half way to the br . pt finished on the toilet and then moved to room 409 for increased monitoring. fall strategies in place. earlier pt was found at the foot of the bed with pants off attempting to get shoes on to go to the br . bed alarm had been going off as well then. when questioned pt is aware of what button to push to call for assistance, but doesn't when getting up to go to the br. family still need to be notified of the room change
--- NOTE | 2022-12-24 03:59 | NURSING ---
Reviewed and agree with Stephenie RAMESH, documentation and assessment charting.
[2022-12-24] MEDS: Metoclopramide 5 MG TABLET 2.5 MG PO (08:13)
[2022-12-24] MEDS: APIXABAN 5 MG TABLET PO (08:18)
[2022-12-24] MEDS: Ensure Plus High Protein 120 ML LIQUID PO (09:41)
--- NOTE | 2022-12-24 09:52 | SP.MBSS_ITS ---
Modified Barium Swallow - Patient Information Study Date: 12/24/22 Study Time: 09:00 Direct Billable Minutes: 90 Total Minutes procedure & reportin Diagnosis: Dysphagia/CVA Referring Physician: Eliana Sidhu Reason for Referral: Objective assessment of swallow function recommended following clinical bedside swallow evaluation which revealed suspected pharyngeal dysfunction/aspiration Medical History: AFSANEH AMADO, is a 87 YO M with a PMH of hypertension and atrial fibrillation (on warfarin) who presented to the ED at [facility] on 12/10/22 with c/o L side weakness in the arm/leg, facial droop and slurred speech. His daughter had called 911 and he was immediately taken to the emergency department at onset of symptoms. By the time he arrived in the emergency department his symptoms were improving. His NIHSS was 5. A noncontrast CT brain showed no acute findings. CTA of the head and neck showed mild atherosclerotic plaque formation of the origin of the right internal carotid artery with less than 50% cross-sectional diameter stenosis. There was mild atherosclerotic plaque at the origin of the left internal carotid artery with less than 60% cross-sectional diameter stenosis. There was calcified plaque of the right cavernous carotid artery with a mild stenosis estimated at less than 50% and also calcified plaque of the left cavernous carotid artery also estimated at less than 50%. Consult was obtained with [facility] teleneurology. While being interviewed by Dr. Carlos from [facility] the patient's symptoms once again acutely worsened with left arm weakness, left facial droop and slurred speech. Since his INR was only 1.3 IV tPA was recommended. He was administered tenecteplase at [facility] and again his condition worsened. He went for a NC CTB and which was negative for bleeding. He was transferred to [facility] for further neurologic tx. He was in AF while in the ED and he was given 20 mg of IV diltiazem for rate control. At arrival to [facility] his NIHSS was 1 for dysarthria. MRI at [facility] showed a punctate focus of restricted diffusion in the right frontal opercular region in keeping with a small acute infarct. Repeat CTB 24 hours after tenecteplase showed no hemorrhage. Significant lab included an LDL of 96, HDL of 35 and an hemoglobin A1c of 5.7. Since the infarct was small he was restarted on anticoagulation with Coumadin and heparin bridge. The family cannot afford Eliquis. He was maintained on statin and ASA as well. CXR at [facility] showed small BL pleural effusions with prominent R hilar node and R axillary node of uncertain significance. There was also an age indeterminant L1 superior endplate compression fracture. While at [facility] he also had a CT scan of the abdomen and pelvis with contrast that showed a wedged shaped area of hypoattenuation in the spleen concerning for infarct, prominent irregular wall thickening at the gastroesophageal junction extending into the gastric cardia and concerning for an infiltrative neoplastic lesion, multiple areas of irregular wall thickening and mucosal hyperenhancement and segments of the ileum, some of which appeared narrowed. He also had cholelithiasis and colonic diverticulosis. An EGD was apparently done on 12/19/22 but, we are told there is no report yet? A bx was done and the pathology is pending. They also do not boyle ve a report of the ECHO yet. Current Diet Ordered: regular/thin Dentition: Natural Teeth Mental Status: Impaired - able to follow commands for participation in MBS w/ need for repetitive cueing to maintain appropriate body positioning Respiratory Status: Oxygenating on Room Air - Penetration-Aspiration Scale Penetration-Aspiration Scale: OBJECTIVE ASSESSMENT OF SWALLOW FUNCTION (QUANTITATIVE ? PER TRIAL): PENETRATION / ASPIRATION SCALE (JUNIOR): 1 = does not enter airway 2 = enters airway/above vocal folds/ejected 3 = enters airway/above vocal folds/not ejected 4 = enters airway/contacts vocal folds/ejected 5 = enters airway/contacts vocal folds/not ejected 6 = enters airway/below vocal folds/ejected 7 = enters airway/below vocal folds/not ejected despite effort 8 = enters airway/below vocal folds/no effort VIDEOFLOROSCOPIC SCALE SCORE (JUNIOR): Grade I = aspiration of material that has penetrated into the laryngeal vestibule, intact cough reflex Grade II = aspiration < 10 % of the bolus, intact cough reflex Grade III = aspiration of < 10 % of the bolus, reduced cough reflex or aspiration of > 10 % of the bolus, intact cough reflex Grade IV = aspiration of > 10 % of the bolus, reduced cough reflex - Penetration-Aspiration Scale Score Thin Liquid via teaspoon Result: 1= does not enter airway Thin Liquid via teaspoon Trial 2 Result: 2= enter airway/above vocal folds/ejected Thin Liquid via small single sip from cup Result: 6= enters airway/below vocal folds/ejected Thin Liquid via small single sip from cup Trial 2 Result: 6= enters airway/below vocal folds/ejected Thin Liquid via small single sip from cup Effortful swallow Result: 4= enters airway/contacts vocal folds/ejected [place] Thick Liquid via small single sip from cup Result: 1= does not enter airway [place] Thick Liquid via small single sip from cup Trial 2 Result: 1= does not enter airway Pudding Result: 2= enter airway/above vocal folds/ejected Cookie Result: 1= does not enter airway [place] Thick Liquid via small single sip from cup Trial 3 Result: 1= does not enter airway - Oral Phase Labial Seal: Interlabial escape, no progression to anterior lip Tongue Control During Bolus Hold: Cohesive bolus between tongue to palatal seal Bolus Preparation/Mastication: Slow prolonged chewing/mashing with complete recollection Bolus Transport/Lingual Motion: Slowed tongue motion Oral Residue: Trace residue lining oral structures - Pharyngeal Phase Initiation of Pharyngeal Swallow: Bolus head in valleculae Soft Palate Elevation: No bolus between soft palate and pharyngeal wall Laryngeal Elevation: Partial superior movement thyroid cart/partial apprx aryt- epig petiole Anterior Hyoid Excursion: Partial anterior movement Epiglottic Movement: Partial inversion Laryngeal Vestibule Closure at Height of Swallow: Incomplete; narrow column of air/contrast in laryngeal vestibule Pharyngeal Stripping Wave: Present - diminished Pharyngoesophageal Segment Opening: Parital distension and partial duration; parital obstruction of flow Tongue Base Retraction: Wide column of contrast between tongue base & post. pharyngeal wall Pharyngeal Residue: Majority of contrast within or on pharyngeal structures - Esophageal Phase Esophageal Clearance: Esophageal retention w/ retrograde flow below pharyngoesophageal seg. - Diagnosis/Impression Diagnosis: moderate oropharyngeal dysphagia Impression: The oral phase is characterized by: -slowed mastication and slowed lingual motion for A-P bolus transportation -sufficient oral clearance w/ trace residue retention The pharyngeal phase is characterized by: -swallow onset when the bolus reaches the valleculae -reduced hyolaryngeal excursion resulting in incomplete epiglottic inversion and reduced PES distention contributing to significant pharyngeal bolus retention -+75% of cookie bolus remained w/in the valleculae requiring additional swallow and liquid wash to aid in clearance -trialed a left head turn which was effective to partially clear vallecular st asis w/ cookie but resulted in penetration to the vocal folds w/ pharyngeal residue during the swallow w/ left head turn -thin liquids penetrated the laryngeal vestibule during the swallow contacting the vocal folds -thin liquid pharyngeal residue which lined the aryepiglottic folds and pooled in the pyriform sinuses entered the laryngeal vestibule post-prandially w/ aspiration below the folds transiently -the patient was sensate to penetration/aspiration w/ a throat clearing response elicited following all penetration/aspiration events; throat clear was effective to eject contrast from below the vocal folds but did not clear it from the laryngeal vestibule -diminished pharyngeal stripping wave w/ contrast lining the posterior pharyngeal wall The esophageal phase is characterized by: -slowed esophageal clearance w/ retrograde bolus flow below the PES - Recommendations Diet: Regular Textures - Easy to chew, [place]-thick Liquids Comment: Compensatory Strategies: staff supervision w/ meals, cue to double swallow w/ solids, follow solids w/ a sip of liquid, seated at 90 degrees during intake, remain upright at 90 degrees for 30 minutes after intake Recommend Repeat Modified Barium Swallow: TBD Need for Skilled Speech Therapy Services: Yes Comment: Skilled ST intervention is recommended for management of oropharyngeal dysphagia. TX is necessary for skilled diet analysis, assessment of compensatory strategy use and instruction of oropharyngeal strengthening exercises - toney, effortful swallow, marita, chin tuck against resistance. Would consider implementation of Nam Free Water Protocol following patient education re: same. Education Completed: 1. Described result of evaluation., 7. Pt requires further education on strategies & risks. - Status Active ST Patient: Active - Contact Information [facility] Speech Therapy:: Ariana Wen M.A., CCC-CONSUMER LENDING MANAGER [facility] [address] [place] [address] [phone] [email or web address]
[2022-12-24 10:00] VITALS: BP 89/49; PULSE 54; RESP 16; TEMP 36.7; O2SAT 100
[2022-12-24 10:08] VITALS: BP 86/49; BP 87/50; BP 95/45; PULSE 56; PULSE 67; PULSE 74
--- NOTE | 2022-12-24 10:10 | PN_ITS ---
Subjective Subjective Afebrile VSS - BP dropped to 86/49 this AM with a MAP of 61. HR was 56 - he is on high dose Beta Kirstin for AF with RVR. Lopressor was held. Tilt test is negative today. Maintaining appropriate oxygen saturation on RA Oral intake is very poor Discussed with nursing - Black melanotic stool today. Heme + Had an emesis today with no hematemesis. HGB was 13.8 yesterday but, he is dehydrated. Reviewed the PT/OT/ST notes - had a MBS today and did poorly, report reviewed. Medication list reviewed. T4 is normal but, TSH is elevated at 9.73. He denies abd pain but, he feels terrible. Very drowsy today and grimacing. He was also tearful and is frustrated........has not felt well since last April. Denies CP and SOB. He is very tired. Objective Data Objective Data Vital Signs: Vital Signs Temp Pulse Resp BP Pulse Ox O2 Del Method O2 Flow Rate 97.7 F L 56 L 16 86/49 L 94 Nasal Cannula 2 12/23/22 20:31 12/24/22 10:08 12/23/22 20:31 12/24/22 10:08 12/23/22 20:39 12/24/22 10:00 12/24/22 10:00 Oxygen Flow Rate (L/min) 2 Oxygen Delivery Method Nasal Cannula Weight: 140 lb 6.951 oz Body Mass Index (BMI) 19.0 Intake & Output: Intake and Output for Last 24 Hours 12/22/22 12/23/22 12/24/22 23:59 23:59 23:59 Intake Total 120 / 120 200 / 200 Output Total 200 / 200 650 / 650 Balance -200 / -200 -530 / -530 200 / 200 Medical Nutrition Assessment Dietitian: Malnutrition Criteria Met Start: 12/23/22 13:09 Freq: Status: Active Protocol: Document 12/23/22 13:09 RMA (Rec: 12/23/22 13:09 RMA [id number]) Nutrition Malnutrition Evidence of Malnutrition Exists Yes Malnutrition (severe): Acute Illness/Injury Evidenced By Suboptimal Energy Intake ( Severe),Weight Loss (Severe), Physical Changes (Moderate) Clinical Problem Acute Disease or Injury Related Malnutrition Etiology Severe protein-calorie malnutrition in the context of acute disease/stroke related to inadequate oral intake Signs/Symptoms as evidenced by ~14% wt loss x 2 weeks, PO meeting less than 50% estimated nutrition needs and moderate muscle/fat wasting in the clavicle, face, orbitals, hands and legs Status Active Problem Recommendation Dietitian Recommendations/Changes Will liberalize diet to regular/no added salt due to signs/symptoms of malnutrition . Recommend SOUND ENGINEER evaluation for best texture/consistency of solids and liquids. Will continue 120ml ensure plus high protein 4 times per day w/ medpass. Will add 240 ml ensure clear BID w/ breakfast and dinner. Will add 1 magic cup w/ lunch. Adjust ONS as needed. Trend weight closely. Lab / Micro Data Result Diagrams: 12/23/22 06:42 12/23/22 06:42 Labs: Laboratory Results - last 24 hr 12/23/22 06:42: TSH 9.73 H 12/23/22 06:42: Free T4 1.12 Micro: Microbiology 12/24/22 07:45 Stool Stool Occult Blood (POPPY) - Final Occult Blood Positive Physical Exam Const Constitutional Narrative: Very drowsy but does arouse when I shake his shoulder. He appears very fatigued. When I told him about the bleeding in his GI tract he became tearful. He did not complain of abdominal pain but, he feels terrible. He was sitting in the recliner sleeping when I entered the room. General Appearance: cooperative HEENT normocephalic and head/scalp atraumatic HEENT Narrative: palpebral conjunctiva has decent color and the nail beds have fair cap refill Mouth: dry mucous membranes Eyes EOMs intact bilaterally Neck no lymphadenopathy, supple, no JVD and no carotid bruits General: trachea midline Lymph Lymphatic: no lymphadenopathy noted and no lymphedema noted Resp normal respiratory effort, normal air movement and clear to auscultation bilaterally Resp Narrative: Shallow respirations but, Maintaining appropriate oxygen saturation on room air. Nursing applied 2 L of nasal O2 because of the GI bleed. He is not tachypneic and breathing is not labored. Effort and Inspection: Negative for tachypneic Cardio no gallops Cardio Narrative: Irregular irregular rhythm with controlled ventricular response. No gallops GI normal to inspection, nondistended, normoactive bowel sounds, soft to palpation, non-tender and non-distended GI Narrative: Bowel sounds are more active than yesterday but I would not describe as hypera ctive. The ab is not distended and he had no guarding with palpation. Extremity no calf tenderness General Extremity: Negative for edema Skin Skin Narrative: many areas of ecchymosis on the UE's hua. No very large areas. General Skin Exam: dry skin Rashes: no rashes Wounds: Negative for wounds noted Neuro CN's II-XII intact bilaterally Neuro Narrative: He has no sensory deficits, no visual field cuts and no ataxia. He does have generalized weakness. Having some trouble following simple commands like, hold your breath and follow my finger with your eyes and don/t move your head. He has slurred speech. Coordination / Balance: [id number] test normal and [id number] test normal Motor Exam: general weakness Psych cooperative, denies homicidal ideation and denies suicidal ideation Psych Narrative: tearful looks overwhelmed Appearance: appropriate Mood & Affect: flat affect Assessment & Plan Assessment/Plan (1) Physical debility: (2) Stroke/cerebrovascular accident: PLAN: Punctate focus of restricted diffusion in the right frontal opercular region in keeping with a small acute infarct on MRI. (3) Afib: PLAN: Chronic persistent. (4) Weight loss, unintentional: (5) Abnormal CT of the abdomen: PLAN: We contacted [facility] for results of the EGD, ECHO and path reports and were told there are no reports yet. Will continue to call daily until we have these reports. (6) Nausea & vomiting: PLAN: Etiology undetermined at this time. We have been calling daily to [facility] to obtain the EGD report, echo report and results of the biopsies done and EGD but have not received any documentation yet. We will continue to try. (7) Chronic anticoagulation: PLAN: Eliquis was placed on hold today. (8) UGI bleed: (9) Hypotension: (10) Dehydration: (11) Severe protein-calorie malnutrition: PLAN: Plan 1. Hold further therapy today 2. Type and screen for blood products 3. Start Protonix 40 mg IV every 12 hours 4. Make n.p.o. except for sips of water occasionally 5. 500 cc bolus of normal saline and then repeat blood pressure. If blood pressure is still low we will give an additional bolus and if not we will continue IV normal saline at 110 cc/h 6. Stat CBC without differential 7. Consult Dr. Boone -he responded and will be up to see the patient today. 8. I discussed need for EGD to determine source of bleeding and the patient is agreeable to this and to consult with Dr. Boone. I will discuss with his Carie. 9. Vital signs every hour x4 10. Await the results of the hemoglobin today and if it has dropped we will order serial H&H. 11. I would prefer he is in bed but, he is more comfortable in the recliner. 12. May need to transfer to acute side of the hospital if he destabilizes. Charges/Coding Visit Charges Inpatient E&M: 85105 Subs Hosp L3
[2022-12-24 10:59] LABS: Hematocrit 35.7 % (40-54); Hemoglobin 11.4 g/dL (13.0-16.5); Mean Corp Hgb Conc 31.9 g/dL (32-36); Mean Corpuscular Hgb 32.8 pg (27.0-32.0); Mean Corpuscular Volume 102.6 fL (80-94); Mean Platelet Vol. 9.3 fl (6.2-12.0); Platelet Count 316 K/mm3 (150-450); RBC Distribution Width CV 14.9 % (11.6-14.6); RBC Distribution Width SD 53.3 fl (35.1-43.9); Red Blood Count 3.48 M/mm3 (4.6-6.2); White Blood Count 12.1 K/mm3 (4.4-11.0)
[2022-12-24] MEDS: 0.9% Saline Lock 10 ML Syringe IV ×2 (11:28→12:14)
[2022-12-24] MEDS: 0.9% Normal Saline 1,000 ML 110 ML IV ×2 (12:14→20:07)
[2022-12-24 13:58] VITALS: BP 127/67; PULSE 65
--- NOTE | 2022-12-24 16:03 | CASEMGMT ---
Social Work Attempted to complete assessment. Pt unavailable. Entered information using chart review. Judy Del Rosario, BAND SEWER MOTOR PATROL OPERATOR
[2022-12-24 17:15] LABS: Hemoglobin 10.7 g/dL (13.0-16.5)
--- NOTE | 2022-12-24 17:43 | CON.PCM.GI_ITS ---
HPI Consult Data Date of Consult: 12/24/22 HPI Narrative Reason for Consultation: GI bleed HPI Narrative: AFSANEH AMADO, is a 87 M who presents to [facility] rehabilation department after suffering a CVA. He is currently on warfarin. He was recently discharged from [facility]. While at [facility] he also had a CT scan of the abdomen and pelvis with contrast that showed a wedged shaped area of hypoattenuation in the spleen concerning for infarct, prominent irregular wall thickening at the gastroesophageal junction extending into the gastric cardia and concerning for an infiltrative neoplastic lesion, multiple areas of irregular wall thickening and mucosal hyperenhancement and segments of the ileum, some of which appeared narrowed .? He also had cholelithiasis and colonic diverticulosis.? An EGD was apparently done on 12/19/22. The report from the upper endoscopy had shown a gastric polyp and gastric cardia of the stomach that was biopsied. It did not appear to be neoplastic in nature. Also noted was some thickening at the GE junction possi nakul secondary to achalasia. He had some inflammation consistent with gastritis in the gastric antrum that was also biopsied. H. pylori staining and his still pathology for gastric intestinal metaplasia was pending. Recommendations were work-up for possible motility abnormalities such as gastroparesis. Today he had some black stool and had episodes of vomiting. His last hgb is 10.6 and it was previously 13.5. [facility] Medical History (Updated 12/24/22 @ 10:[address] Eliana Sidhu, ) Afib Chronic anticoagulation HTN (hypertension) Stroke/cerebrovascular accident Home Medications apixaban 5 mg tablet 5 mg PO BID blood thinner 12/22/22 [History Last Taken Unknown] atorvastatin 40 mg tablet 40 mg PO QHS reduce cholesterol 12/22/22 [History Last Taken Unknown] hydroxyzine HCl 25 mg tablet 12.5 mg PO TID PRN Anxiety 12/22/22 [History Last Taken Unknown] losartan 50 mg tablet 50 mg PO DAILY bp 12/22/22 [History Last Taken Unknown] metoprolol tartrate 100 mg tablet 100 mg PO DAILY@2200 bp 12/22/22 [History Last Taken Unknown] metoprolol tartrate 50 mg tablet 50 mg PO DAILY bp 12/22/22 [History Last Taken Unknown] Allergy/AdvReac Type Severity Reaction Status Date / Time No Known Allergies Allergy Verified 12/10/22 19:01 Family History (Updated 12/23/22 @ 13:[address] Eliana Sidhu DO) Father Mental health problem His father and some of his brothers committed suicide. Pt tells me mental health problems go deep in the family. in his late 50's Mother Cancer She at the age of 68 from a cancer that was in her abdomen. Surgical History (Updated 12/23/22 @ 13:[address] Eliana Sidhu DO) History of appendectomy History of ear surgery History of knee surgery Social History (Updated 12/23/22 @ 13:[address] 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 [employer] Smoking Status: Never smoker alcohol intake: never substance use type: does not use ROS Constitutional Constitutional: Reports anorexia, change in weight, fatigue, weakness and weight loss; Denies chills, fever(s) or night sweats Eyes Eyes: Denies change in vision or discharge from eye(s) ENT HEENT: Denies dysphagia, epistaxis, headache(s), loss taste/smell or sore throat Cardiovascular Cardiovascular: Denies chest pain, edema, palpitations or syncope Respiratory/Chest Respiratory/Chest: Denies cough or shortness of breath at rest Gastrointestinal Gastrointestinal: Reports abdominal pain, dyspepsia, nausea, vomiting and other Details: sometimes vomits what looks like undigested food ; Denies constipation, diarrhea, hematemesis or hematochezia Genitourinary Genitourinary: Denies dysuria, hematuria, urinary frequency or urinary incontinence Musculoskeletal Musculoskeletal: Reports muscle weakness, stiffness and other Details: Weakness is more than likely due to marked weight loss since last April.......he estimates about 7 lbs a month..... confirms he has lost a lot of wt. Appetite is poor and he tells me that food does not look good. Integumentary Integumentary: Reports dry skin; Denies jaundice, pruritus, rash or wounds Neurologic Neurologic: Reports tremor(s) and other Details: Carie tells me that over the last 1-2 months he has developed tremors with exertion ; Denies abnormal speech, confusion, dizziness, focal weakness, headache(s), numbness or seizures Psychiatric Psychiatric: Reports other Details: No hallucinations or delusions. Tells me that he is sleeping well and does not feel depressed. He told the OT that he had been awake since 3 AM. ; Denies anxiety, depression, homicidal ideation or suicidal ideation Endocrine Endocrinology: Reports change in body appearance; Denies cold intolerance or heat intolerance Hematologic/Lymphatic Hematologic/Lymphatic: Reports easy bleeding and easy bruising; Denies anemia or lymphadenopathy Physical Exam Const General Appearance: cooperative HEENT normocephalic and head/scalp atraumatic HEENT Narrative: palpebral conjunctiva has decent color and the nail beds have fair cap refill Mouth: dry mucous membranes Eyes EOMs intact bilaterally Neck no lymphadenopathy, supple, no JVD and no carotid bruits General: trachea midline Lymph Lymphatic: no lymphadenopathy noted and no lymphedema noted Resp normal respiratory effort, normal air movement and clear to auscultation bilaterally Resp Narrative: Shallow respirations but, Maintaining appropriate oxygen saturation on room air. Nursing applied 2 L of nasal O2 because of the GI bleed. He is not tachypneic and breathing is not labored. Effort and Inspection: Negative for tachypneic Cardio no gallops Cardio Narrative: Irregular irregular rhythm with controlled ventricular response. No gallops GI normal to inspection, nondistended, normoactive bowel sounds, soft to palpation, non-tender and non-distended GI Narrative: Bowel sounds are more active than yesterday but I would not describe as hyperactive. The ab is not distended and he had no guarding with palpation. Extremity no calf tenderness General Extremity: Negative for edema Skin Skin Narrative: many areas of ecchymosis on the UE's hua. No very large areas. General Skin Exam: dry skin Rashes: no rashes Wounds: Negative for wounds noted Neuro CN's II-XII intact bilaterally Neuro Narrative: He has no sensory deficits, no visual field cuts and no ataxia. He does have generalized weakness. Having some trouble following simple commands like, hold your breath and follow my finger with your eyes and don/t move your head. He has slurred speech. Coordination / Balance: [id number] test normal and [id number] test normal Motor Exam: general weakness Psych cooperative, denies homicidal ideation and denies suicidal ideation Psych Narrative: tearful looks overwhelmed Appearance: appropriate Mood & Affect: flat affect Medical Records Data Medical Nutrition Assessment Dietitian: Malnutrition Criteria Met Start: 12/23/22 13:09 Freq: Status: Active Protocol: Document 12/23/22 13:09 RMA (Rec: 12/23/22 13:09 RMA [id number]) Nutrition Malnutrition Evidence of Malnutrition Exists Yes Malnutrition (severe): Acute Illness/Injury Evidenced By Suboptimal Energy Intake ( Severe),Weight Loss (Severe), Physical Changes (Moderate) Clinical Problem Acute Disease or Injury Related Malnutrition Etiology Severe protein-calorie malnutrition in the context of acute disease/stroke related to inadequate oral intake Signs/Symptoms as evidenced by ~14% wt loss x 2 weeks, PO meeting less than 50% estimated nutrition needs and moderate muscle/fat wasting in the clavicle, face, orbitals, hands and legs Status Active Problem Recommendation Dietitian Recommendations/Changes Will liberalize diet to regular/no added salt due to signs/symptoms of malnutrition . Recommend [employer] evaluation for best texture/consistency of solids and liquids. Will continue 120ml ensure plus high protein 4 times per day w/ medpass. Will add 240 ml ensure clear BID w/ breakfast and dinner. Will add 1 magic cup w/ lunch. Adjust ONS as needed. Trend weight closely. Lab / Micro Data Result Diagrams: 12/24/22 17:00 12/23/22 06:42 Labs: Laboratory Results - last 24 hr 12/24/22 10:46: WBC 12.1 H, RBC 3.48 L, Hgb 11.4 L, Hct 35.7 L, MCV 102.6 H, MCH 32.8 H, MCHC 31.9 L, RDW Std Deviation 53.3 H, RDW Coeff of Jonn 14.9 H, Plt Count 316, MPV 9.3 12/24/22 12:25: Blood Type A POSITIVE, Antibody Screen NEGATIVE 12/24/22 17:00: Hgb 10.7 L, Hct 32.0 L Micro: Microbiology 12/24/22 07:45 Stool Stool Occult Blood (POPPY) - Final Occult Blood Positive Assessment & Plan Assessment/Plan (1) Stroke/cerebrovascular accident: (2) Afib: PLAN: Chronic persistent. Anticoagulation on hold. (3) Weight loss, unintentional: PLAN: He should undergo an upper endoscopy and possibly colonoscopy. We will do upper endoscopy tomorrow. (4) Abnormal CT of the abdomen: PLAN: Awaiting official CT scan. (5) Nausea & vomiting: PLAN: Likely secondary to infiltrative disease at the level of GE junction and extending into the gastric cardia of the stomach. (6) Chronic anticoagulation: PLAN: Eliquis was placed on hold today. (7) UGI bleed: PLAN: Upper GIUpper GI bleed could be secondary to the biopsy sites that were t aken during his recent upper endoscopy approximately 5 days ago. Recommend continue PPI and n.p.o. past midnight. (8) Hypotension: (9) Severe protein-calorie malnutrition: Charges/Coding Visit Charges Inpatient E&M: 98699 SNF Init L2
[2022-12-24 19:40] VITALS: BP 125/55; PULSE 92; RESP 18; TEMP 37.1; O2SAT 97
[2022-12-24 22:50] VITALS: BMI 19.0
[2022-12-25] VITALS (15 sets, daily range): BP systolic 111–140; BP diastolic 49–95; PULSE 90–107; RESP 16–90; TEMP 36.3–37.1; O2SAT 89–99; BMI 19.0
[2022-12-25] MEDS: 0.9% Normal Saline 1,000 ML 110 ML IV (05:22)
[2022-12-25 06:41] LABS: Anion Gap 9 (5-15); BUN 64 mg/dL (7-18); BUN/Creat Ratio 51.6 RATIO (10-20); Calcium,Total 8.4 mg/dL (8.5-10.1); Chloride 115 mmol/L (98-107); Creatinine, Serum 1.24 mg/dL (0.70-1.30); EST Glomerular Filtration Rate 59 mL/min (>60); Est Glom Filt Rate - Afr Amer 71 mL/min (>60); Estimated Creatinine Clearance 39.24 ml/min; Glucose 95 mg/dL (74-106); Potassium 4.1 mmol/L (3.5-5.1); Sodium Level 147 mmol/L (136-145)
[2022-12-25 07:45] LABS: Hematocrit 29.9 % (40-54); Hemoglobin 9.7 g/dL (13.0-16.5)
[2022-12-25] MEDS: Metoprolol Tartrate 50 MG Tablet PO (08:43)
--- NOTE | 2022-12-25 08:47 | PCM.PN.BLA ---
Progress Note Afebrile VSS-heart rate is in the 90s today. He had no metoprolol yesterday. Blood pressure this morning is 139/49. Maintaining appropriate oxygen saturation on RA Fluid balance for 10/23/2023 is +2437. Discussed with nursing - no problems that need addressed. No stools last night. Reviewed the PT/OT/ST notes Medication list reviewed. All lab from today was personally reviewed. Hemoglobin is 9.7 today, down from 11.4 yesterday morning. Sodium is increased at 147 and the potassium is 4.1. The BUN is 64, up from 46 on 12/23/2022 and the creatinine is stable at 1.24. The Increase in the BUN is more likely than not due to UPI bleed. I reviewed Dr. Boone's consult and the plan is for EGD today. I reviewed the operative note from the EGD and the impressions were grade a erosive esophagitis, oozing gastric ulcers with pigmented material that were treated with a heater probe, nonbleeding gastric ulcers with no stigmata of bleeding which were biopsied. There were no gross lesions in the first portion of the duodenum. Patient will be on ice chips only today. He is much more alert than yesterday. able to answer my questions. Having some difficulty following simple commands. ST feels he may have some underlying dementia as the cognitive deficit is more than what she would anticipate from the stroke. Girish denies nausea today and he also denies abd pain, CP, SOB, lightheadedness. He denies cephalgia. Physical Exam Const Constitutional Narrative: He is alert today and talking with his . Much better color in his face today. Having a lot of trouble following simple commands, even when repeated multiple times. His tells me that she has not noticed any problem with mentation prior to the stroke. she is the one in the family that takes care of finances, bills, etc. Girish still goes to work everyday. He does forget names but, she does not find this unusual. General Appearance: cooperative Resp normal respiratory effort, normal air movement and clear to auscultation bilaterally Effort and Inspection: Negative for tachypneic Cardio no gallops Cardio Narrative: Irregular irregular rhythm with controlled ventricular response. No gallops GI normal to inspection, nondistended, normoactive bowel sounds, soft to palpation, non-tender and non-distended Extremity no calf tenderness General Extremity: Negative for edema Skin Skin Narrative: many areas of ecchymosis on the UE's hua. No very large areas. General Skin Exam: no breakdown and dry skin Rashes: no rashes Neuro CN's II-XII intact bilaterally Assessment & Plan Assessment/Plan (1) Physical debility: (2) Stroke/cerebrovascular accident: PLAN: Punctate focus of restricted diffusion in the right frontal opercular region in keeping with a small acute infarct on MRI. (3) Afib: PLAN: Chronic persistent. (4) Weight loss, unintentional: (5) Abnormal CT of the abdomen: PLAN: We contacted [facility] for results of the EGD, ECHO and path reports and were told there are no reports yet. Will continue to call daily until we have these reports. (6) Nausea & vomiting: PLAN: Etiology undetermined at this time. We have been calling daily to [facility] to obtain the EGD report, echo report and results of the biopsies done and EGD but have not received any documentation yet. We will continue to try. (7) Chronic anticoagulation: PLAN: Eliquis was placed on hold today. (8) UGI bleed: (9) Hypotension: (10) Dehydration: (11) Severe protein-calorie malnutrition: (12) Gastric ulcer: PLAN: Plan 1. Chips today and advance tomorrow if no further bleeding 2. continue IV Protonix 40 mg once a day 3. Recheck a CBC in the AM 4. Continue therapy 5. start Remeron 7.5 mg Q HS 6. Monitor weights and calorie intake closely 7. Needs a w/U for treatable causes of dementia at some point. Visit Charges Inpatient E&M: 79178 Subs Hosp L2
[2022-12-25] MEDS: Lactated Ringers 1,000 ML 15 ML IV (11:05)
--- NOTE | 2022-12-25 12:21 | OP.EGD_ITS ---
Patient Name: Girish Hartman Procedure Date: 12/25/2022 11:46 AM Date of : 1935 Age: 87 Procedure: Upper GI endoscopy Indications: Iron deficiency anemia, Hematemesis, Melena Providers: Jean-Pierre Boone DO Medicines: Monitored Anesthesia Care Patient Profile: This is an 87 year old male. Refer to note in patient chart for documentation of history and physical. Patient has symptoms of acute epigastric abdominal pain and acute nausea. Complications: No immediate complications. Procedure: Pre-Anesthesia Assessment: - Prior to the procedure, a History and Physical was performed, and patient medications and allergies were reviewed. The patient is competent. The risks and benefits of the procedure and the sedation options and risks were discussed with the patient. All questions were answered and informed consent was obtained. Patient identification and proposed procedure were verified by the physician. Mental Status Examination: alert and oriented. Airway Examination: normal oropharyngeal airway and neck mobility. Prophylactic Antibiotics: The patient does not require prophylactic antibiotics. Prior Anticoagulants: The patient has taken no previous anticoagulant or antiplatelet agents. After reviewing the risks and benefits, the patient was deemed in satisfactory condition to undergo the procedure. The anesthesia plan was to use monitored anesthesia care (MAC). Immediately prior to administration of medications, the patient was re-assessed for adequacy to receive sedatives. The heart rate, respiratory rate, oxygen saturations, blood pressure, adequacy of pulmonary ventilation, and response to care were monitored throughout the procedure. The physical status of the patient was re-assessed after the procedure. After obtaining informed consent, the endoscope was passed under direct vision. Throughout the procedure, the patient's blood pressure, pulse, and oxygen saturations were monitored continuously. The gastroscope was introduced through the mouth, and advanced to the second part of duodenum. The upper GI endoscopy was accomplished without difficulty. The patient tolerated the procedure well. Scope In: 11:57:26 AM Scope Out: 12:11:55 PM Total Procedure Duration Time 0 hours 14 minutes 29 seconds Findings: LA Grade A (one or more mucosal breaks less than 5 mm, not extending between tops of 2 mucosal folds) esophagitis with no bleeding was found 36 to 38 cm from the incisors. Four oozing cratered gastric ulcers with pigmented material were found in the gastric fundus. The largest lesion was 3 mm in largest dimension. Coagulation for hemostasis using heater probe and Hemospray was successful. Two non-bleeding linear gastric ulcers with no stigmata of bleeding were found at the incisura. The largest lesion was 5 mm in largest dimension. Biopsies were taken with a cold forceps for histology. Verification of patient identification for the specimen was done. Estimated blood loss was minimal. No gross lesions were noted in the first portion of the duodenum. Impression: - LA Grade A erosive esophagitis. - Oozing gastric ulcers with pigmented material. Treated with a heater probe. - Non-bleeding gastric ulcers with no stigmata of bleeding. Biopsied. - No gross lesions in the first portion of the duodenum. Recommendation: - [facility]. - Use Protonix (pantoprazole) 40 mg IV daily for 5 days. - Only ice chips today - Continue present medications. Procedure Code(s): --- Professional --- 08667, 59, Esophagogastroduodenoscopy, flexible, transoral; with control of bleeding, any method 95763, 51, Esophagogastroduodenoscopy, flexible, transoral; with biopsy, single or multiple CPT copyright 2017 [employer]. All rights reserved. The codes documented in this report are preliminary and upon senior manager mmcoe review may be revised to meet current compliance requirements. Jean-Pierre Boone DO 12/25/2022 12:21:28 PM This report has been signed electronically. Number of Addenda: 0 Note Initiated On: 12/25/2022 11:46 AM
--- NOTE | 2022-12-25 12:21 | OP.CCLET_ITS ---
12/25/2022 Attila Riojas Re : Upper GI endoscopy procedure for Girish Pantoja Shine This procedure was performed on December. My impressions and recommendations are as follows: Impressions : - LA Grade A erosive esophagitis. - Oozing gastric ulcers with pigmented material. Treated with a heater probe. - Non-bleeding gastric ulcers with no stigmata of bleeding. Biopsied. - No gross lesions in the first portion of the duodenum. Recommendations : - [facility]. - Use Protonix (pantoprazole) 40 mg IV daily for 5 days. - Only ice chips today - Continue present medications. My findings are described in the full procedure note, which is enclosed. If I can be of further assistance, please feel free to contact me at . Sincerely, Jean-Pierre Boone, 12/25/2022 12:21:28 PM This report has been signed electronically.
--- NOTE | 2022-12-25 12:30 | SUR.PHASEI ---
PT COUGHING UP SPUTUM, SUCTIONING WITH YANKAUER.
--- NOTE | 2022-12-25 12:47 | CASEMGMT ---
Social Work IDT met with for patient's Team meeting. Pt off unit for procedure. Attempted to conference all son and dtr but both unavailable. Discussed with , patient's progress in PT/OT/ST/SN. Educated to Medicare approval for 13 days with [facility] 01/04. Goal is for pt to DC home with . However, pt may need continued therapy and nursing care at a SNF prior to home. SW to offer options closer to DC timeframe with IDT recommendations. Will ReTeam weekly. SW to continue to follow for DC planning. Judy Del Rosario, [employer]PL[employer] REPAIRER
--- NOTE | 2022-12-25 13:30 | IMM_PTH ---
PATIENT: AFSANEH AMADO LOC: RU U#:[id number] AGE/SX: 87/M ROOM: [facility] RE12/22/[address]: Dr. Eliana Sidhu DO : 1935 BED: 1 DIS: 01/04/2023 SPEC #: [id number] RECD: 12/25/22 14:23 STATUS: JEANNA REAng #: [id number] SUE: 12/25/22 13:[address]: Ra Melyhsaan DEPT: IMMUNOHISTOCHEMISTRY RECD BY: Yanet Duarte ENTERED: 12/25/22 14:24 SP TYPE: IMMUNO OTHR DR: DO Dr. Attila Camejo MD Tissues: Gastric fundus Procedures: H Pylori (initial) PHYSICIAN & INSTITUTION [place] [id number] SPECIMEN INFORMATION: Tissue Source: Fundus biopsy Clinical Info: Upper GI bleed Specimen Number: [id number] CPT code: 12151 METHODOLOGY: Deparaffinized sections of prefer/formalin-fixed tissue or PAP/DQ stained slides are incubated with monoclonal/polyclonal antibodies/oligonucleotide probes. Localization is made via biotin free immunoperoxidase method. Appropriate controls are performed and reacted as expected. Results on target cell population are indicated in the following table: RESULTS: ANTIBODY / CLONE RESULT H Pylori (polyclonal) negative These tests were developed and their performance characteristics determined by [facility]. They may not have been cleared or approved by the U.S. Food and Drug Administration. The FDA has determined that such clearance or approval is not necessary. The above immunohistochemical/dualISH markers are ordered and reviewed by the Pathologist. INTERPRETATION: Gastric fundus, biopsy: Negative for Helicobacter pylori organisms. SJ:ross 12/26/2022
--- NOTE | 2022-12-25 13:30 | EGD_PTH ---
PATIENT: AFSANEH AMADO LOC: U#:[id number] AGE/SX: 87/M ROOM: [facility] RE12/22/[address]: Dr. Eliana Sidhu DO : 1935 BED: 1 DIS: 01/04/2023 SPEC #: [id number] RECD: 12/25/22 13:35 STATUS: JEANNA OREN #: [id number] SUE: 12/25/22 13:[address]: Jean-Pierre Boone DEPT: SURGICAL PATHOLOGY RECD BY: Luann Escobar ENTERED: 12/25/22 14:05 SP TYPE: EGD BIOPSY OTHR DR: DO Dr. Attila Camejo MD Tissues: Gastric fundus Procedures: Special Stain Group II Surgery Specimen Level IV Alcian Blue/PAS (control) Comments: @ Ordering doctor for SUIV edited from to @ by BRE at 12/25/22 1424 @ Submitting doctor edited from to @ by CECILIAOD at 12/25/22 1424 HEADER OPERATION: EGD ([facility] [place]) with biopsies and hemostasis PRE-OP DIAGNOSIS: Upper GI bleed TISSUE SUBMITTED: Fundus biopsy MICROSCOPIC DIAGNOSIS Fundus, biopsy: Fragments of gastric mucosa with focal ulceration, fibrinous exudation and acute and chronic inflammation. Focal intestinal metaplasia (goblet cell metaplasia). See comment. PAUL:ross 12/26/2022 COMMENT The results of immunohistochemistry for Helicobacter pylori will be reported separately ([id number]). Alcian blue/PAS stain with matched control is used in the evaluation of the specimen. MICROSCOPIC DESCRIPTION Slides are reviewed. GROSS DESCRIPTION Received in fixative is one container labeled with the patient's name and designated fundus biopsy. The specimen consists of multiple irregular fragments of light luis soft tissue that in aggregate measure 0.8 x 0.5 x 0.1 cm. The specimen is totally submitted in one cassette. / PAUL:ross 12/25/2022 TC:2 CPT: 95321, 48852
[2022-12-25] MEDS: Lactated Ringers 1,000 ML 100 ML IV (16:34)
[2022-12-25] MEDS: 0.9% Saline Lock 10 ML Syringe IV (16:34)
[2022-12-25] MEDS: Metoprolol Tartrate 100 MG Tablet PO (21:30)
[2022-12-25] MEDS: Atorvastatin Calcium 40 MG Tablet PO (21:30)
[2022-12-25] MEDS: Mirtazapine 15 MG Tablet 7.5 MG PO (21:30)
[2022-12-26] MEDS: Lactated Ringers 1,000 ML 100 ML IV (02:37)
--- NOTE | 2022-12-26 03:56 | NURSING ---
Pt restless this hs and found awake for most of hs. Pt tearful at times with some confusion present. Pt found resting soundly at this time. Staff will continue to monitor.
[2022-12-26 05:56] LABS: Hematocrit 31.5 % (40-54); Hemoglobin 10.2 g/dL (13.0-16.5); Mean Corp Hgb Conc 32.4 g/dL (32-36); Mean Corpuscular Hgb 32.9 pg (27.0-32.0); Mean Corpuscular Volume 101.6 fL (80-94); Mean Platelet Vol. 8.7 fl (6.2-12.0); Platelet Count 295 K/mm3 (150-450); RBC Distribution Width CV 15.5 % (11.6-14.6); RBC Distribution Width SD 54.4 fl (35.1-43.9); White Blood Count 11.2 K/mm3 (4.4-11.0)
[2022-12-26 06:30] LABS: Anion Gap 7 (5-15); BUN 41 mg/dL (7-18); BUN/Creat Ratio 32.5 RATIO (10-20); Calcium,Total 8.7 mg/dL (8.5-10.1); Chloride 116 mmol/L (98-107); Creatinine, Serum 1.26 mg/dL (0.70-1.30); EST Glomerular Filtration Rate 58 mL/min (>60); Est Glom Filt Rate - Afr Amer 70 mL/min (>60); Estimated Creatinine Clearance 38.62 ml/min; Glucose 97 mg/dL (74-106); Potassium 4.2 mmol/L (3.5-5.1); Sodium Level 148 mmol/L (136-145)
[2022-12-26 07:48] VITALS: BP 117/82; PULSE 72; RESP 16; TEMP 36.7; O2SAT 95
[2022-12-26 07:55] VITALS: BP 117/82; PULSE 72
[2022-12-26] MEDS: Metoprolol Tartrate 50 MG Tablet PO (07:55)
[2022-12-26] MEDS: Ensure Plus High Protein 120 ML LIQUID PO ×2 (07:57→13:29)
[2022-12-26 13:36] VITALS: BMI 19.0
--- NOTE | 2022-12-26 19:08 | PCM.PROGNOTE ---
Subjective Subjective Patient underwent endoscopy yesterday. He was discovered to have multiple ulcers in his stomach that I did not think was secondary to his previous upper endoscopy 6 days ago at [facility]. He was placed on medical therapy. He has not had any signs symptoms of bleeding today. At a long conversation with his daughter over the phone yesterday explaining that his current findings in his stomach should not contribute to his severe protein calorie malnutrition and to really encourage him to eat. Objective Data Objective Data Vital Signs: Vital Signs Temp Pulse Resp BP Pulse Ox O2 Del Method O2 Flow Rate 98.1 F 72 16 117/82 H 95 Room Air 10 12/26/22 07:48 12/26/22 07:55 12/26/22 07:48 12/26/22 07:55 12/26/22 07:48 12/26/22 07:48 12/25/22 13:00 Oxygen Flow Rate (L/min) 10 Oxygen Delivery Method Room Air Weight: 142 lb 3.17 oz Body Mass Index (BMI) 19.0 Intake & Output: Intake and Output for Last 24 Hours 12/24/22 12/25/22 12/26/22 23:59 23:59 23:59 Intake Total 1787.17 / 1787.17 2509.17 / 2509.17 2009 Output Total 600 / 600 300 / 300 Balance 1787.17 / 1787.17 1909.17 / 1909.17 1710 / 1710 Medical Nutrition Assessment Dietitian: Malnutrition Criteria Met Start: 12/23/22 13:09 Freq: Status: Active Protocol: Document 12/23/22 13:09 RMA (Rec: 12/23/22 13:09 RMA [id number]) Nutrition Malnutrition Evidence of Malnutrition Exists Yes Malnutrition (severe): Acute Illness/Injury Evidenced By Suboptimal Energy Intake ( Severe),Weight Loss (Severe), Physical Changes (Moderate) Clinical Problem Acute Disease or Injury Related Malnutrition Etiology Severe protein-calorie malnutrition in the context of acute disease/stroke related to inadequate oral intake Signs/Symptoms as evidenced by ~14% wt loss x 2 weeks, PO meeting less than 50% estimated nutrition needs and moderate muscle/fat wasting in the clavicle, face, orbitals, hands and legs Status Active Problem Recommendation Dietitian Recommendations/Changes Will liberalize diet to regular/no added salt due to signs/symptoms of malnutrition . Recommend DIESEL ENGINE ENGINEER evaluation for best texture/consistency of solids and liquids. Will continue 120ml ensure plus high protein 4 times per day w/ medpass. Will add 240 ml ensure clear BID w/ breakfast and dinner. Will add 1 magic cup w/ lunch. Adjust ONS as needed. Trend weight closely. Lab / Micro Data Result Diagrams: 12/26/22 05:42 12/26/22 05:42 Labs: Laboratory Results - last 24 hr 12/26/22 05:42: WBC 11.2 H, RBC 3.10 L, Hgb 10.2 L, Hct 31.5 L, MCV 101.6 H, MCH 32.9 H, MCHC 32.4, RDW Std Deviation 54.4 H, RDW Coeff of Jonn 15.5 H, Plt Count 295, MPV 8.7 12/26/22 05:42: Sodium 148 H, Potassium 4.2, Chloride 116 H, Carbon Dioxide 25.0, Anion Gap 7, BUN 41 H, Creatinine 1.26, Estim Creat Clear Calc 38.62, Est GFR (MDRD) Af Amer 70, Est GFR (MDRD) Non-Af 58 L, BUN/Creatinine Ratio 32.5 H, Glucose 97, Calcium 8.7 Micro: Microbiology 12/24/22 07:45 Stool Stool Occult Blood (POPPY) - Final Occult Blood Positive Physical Exam Const General Appearance: cooperative HEENT normocephalic and head/scalp atraumatic Mouth: dry mucous membranes Eyes EOMs intact bilaterally Neck no lymphadenopathy, supple, no JVD and no carotid bruits General: trachea midline Lymph Lymphatic: no lymphadenopathy noted and no lymphedema noted Resp normal respiratory effort, normal air movement and clear to auscultation bilaterally Resp Narrative: Shallow respirations but, Maintaining appropriate oxygen saturation on room air. Nursing applied 2 L of nasal O2 because of the GI bleed. He is not tachypneic and breathing is not labored. Effort and Inspection: Negative for tachypneic Cardio no gallops Cardio Narrative: Irregular irregular rhythm with controlled ventricular response. No gallops GI normal to inspection, nondistended, normoactive bowel sounds, soft to palpation, non-tender and non-distended GI Narrative: Bowel sounds are more active than yesterday but I would not describe as hyperactive. The ab is not distended and he had no guarding with palpation. Extremity no calf tenderness General Extremity: Negative for edema Skin Skin Narrative: many areas of ecchymosis on the UE's hua. No very large areas. General Skin Exam: dry skin Rashes: no rashes Wounds: Negative for wounds noted Neuro CN's II-XII intact bilaterally Neuro Narrative: He has no sensory deficits, no visual field cuts and no ataxia. He does have generalized weakness. Having some trouble following simple commands like, hold your breath and follow my finger with your eyes and don/t move your head. He has slurred speech. Coordination / Balance: [id number] test normal and [id number] test normal Motor Exam: general weakness Psych cooperative, denies homicidal ideation and denies suicidal ideation Psych Narrative: tearful looks overwhelmed Appearance: appropriate Mood & Affect: flat affect Assessment & Plan Assessment/Plan (1) Stroke/cerebrovascular accident: (2) Afib: PLAN: Chronic persistent. Anticoagulation on hold. (3) Weight loss, unintentional: PLAN: There was no reason on his upper endoscopy to explain why he is losing weight and is not eating very well. (4) Abnormal CT of the abdomen: PLAN: Recommend CT scan abdomen pelvis. (5) Nausea & vomiting: PLAN: Possibly secondary to gastroparesis. Recommend Gastrografin study (6) Chronic anticoagulation: PLAN: Eliquis was placed on hold today. (7) UGI bleed: PLAN: I would like GI bleed secondary to gastric ulcers. Continue to hold Eliquis until 12/29/2022 (8) Hypotension: (9) Severe protein-calorie malnutrition: Charges/Coding Visit Charges Inpatient E&M: 74576 Subs Hosp L2
[2022-12-26 20:28] VITALS: BP 133/69; PULSE 93; RESP 20; TEMP 37.7; O2SAT 100
[2022-12-26] MEDS: Mirtazapine 15 MG Tablet 7.5 MG PO (21:38)
[2022-12-26] MEDS: Atorvastatin Calcium 40 MG Tablet PO (21:38)
[2022-12-26 21:39] VITALS: BP 133/69; PULSE 93
[2022-12-26] MEDS: 0.9% Saline Lock 10 ML Syringe IV (21:39)
[2022-12-26] MEDS: Metoprolol Tartrate 100 MG Tablet PO (21:39)
[2022-12-27 08:23] VITALS: BP 145/88; PULSE 99; RESP 16; TEMP 37.1; O2SAT 96
[2022-12-27] MEDS: Ensure Plus High Protein 120 ML LIQUID PO ×3 (09:21→21:47)
[2022-12-27 09:23] VITALS: PULSE 88
[2022-12-27] MEDS: Metoprolol Tartrate 50 MG Tablet PO (09:23)
[2022-12-27] MEDS: 0.9% Saline Lock 10 ML Syringe IV ×2 (09:36→21:48)
[2022-12-27 14:56] VITALS: BMI 19.0
[2022-12-27 16:59] LABS: Bacteria 0 SEEN /hpf (None Seen); Mucous, Urine 0 SEEN /hpf (<or=2+); Squamous Epithelial Cells - UA 0 SEEN /hpf (0-5)
[2022-12-27 17:08] LABS: Color, Urine Yellow (Yellow); Glucose, Dipstick Normal (Normal); Ketone-Dipstick Negative (Negative); Leukocyte Esterase-Dipstick 25 /ul (Negative); Nitrite-Dipstick Negative (Negative); Occult Blood-Urine 10 /ul (Negative); Protein-Dipstick 15 mg/dl (Negative); Urine Bilirubin Dipstick Negative (Negative); Urine Clarity Clear (Clear); Urine Urobilinogen Normal (Normal)
[2022-12-27 17:19] LABS: Red Blood Cells-Urine 0-5 SEEN /hpf (0-5); White Blood Cells 0-5 SEEN /hpf (0-5)
[2022-12-27 20:16] VITALS: BP 124/77; PULSE 86; RESP 18; TEMP 36.9; O2SAT 98
[2022-12-27] MEDS: Senna/Docusate Sodium 1 Tablet 2 TABLET PO (21:45)
[2022-12-27 21:46] VITALS: BP 124/77; PULSE 86
[2022-12-27] MEDS: Mirtazapine 15 MG Tablet 7.5 MG PO (21:46)
[2022-12-27] MEDS: Metoprolol Tartrate 100 MG Tablet PO (21:46)
[2022-12-27] MEDS: Atorvastatin Calcium 40 MG Tablet PO (21:47)
[2022-12-28 07:28] VITALS: BP 142/71; PULSE 87; RESP 15; TEMP 36.8; O2SAT 96
[2022-12-28] MEDS: Ensure Plus High Protein 120 ML LIQUID PO ×3 (09:07→21:41)
[2022-12-28] MEDS: 0.9% Saline Lock 10 ML Syringe IV ×2 (10:11→10:37)
[2022-12-28 10:36] VITALS: BP 97/67; PULSE 87
[2022-12-28] MEDS: Losartan Potassium 50 MG Tablet PO (10:36)
[2022-12-28] MEDS: Metoprolol Tartrate 50 MG Tablet PO (10:36)
[2022-12-28 13:41] VITALS: BMI 19.0
[2022-12-28 19:46] VITALS: BP 118/68; PULSE 64; RESP 16; TEMP 37.2; O2SAT 98
[2022-12-28 21:41] VITALS: BP 118/68; PULSE 64
[2022-12-28] MEDS: Mirtazapine 15 MG Tablet 7.5 MG PO (21:41)
[2022-12-28] MEDS: Atorvastatin Calcium 40 MG Tablet PO (21:41)
[2022-12-28] MEDS: Metoprolol Tartrate 100 MG Tablet PO (21:41)
[2022-12-28] MEDS: Nystatin Powder 15gm Bottle 1 APPLIC TOPICAL (21:42)
[2022-12-29] MEDS: Nystatin Powder 15gm Bottle 1 APPLIC TOPICAL ×3 (06:30→22:05)
[2022-12-29 07:55] VITALS: PULSE 96
[2022-12-29] MEDS: Losartan Potassium 50 MG Tablet PO (07:55)
[2022-12-29] MEDS: Metoprolol Tartrate 50 MG Tablet PO (07:55)
[2022-12-29] MEDS: Ensure Plus High Protein 120 ML LIQUID PO ×3 (07:57→21:46)
[2022-12-29 10:00] VITALS: BP 148/89; PULSE 96; RESP 16; TEMP 37.3; O2SAT 97
[2022-12-29 10:18] VITALS: BMI 19.0
--- NOTE | 2022-12-29 12:20 | PCM.PROGNOTE ---
Subjective Subjective Afebrile VSS-blood pressure in the a.m. tends to be elevated above goal. This morning his blood pressure was 148/89. Maintaining appropriate oxygen saturation on RA Oral intake is improving. He took 1185 in fluids yesterday. He is drinking liquids and the supplements but, solid food intake is poor. Weight is up approximately 2 pounds since 12/23/2022. Having some fecal incontinence. He is continent of urine now. Discussed with nursing - no problems that need addressed. Confusion is clearing up. Reviewed the PT/OT/ST notes Medication list reviewed. Girish denies cough, shortness of breath, chest pain, nausea, vomiting, epigastric pain, dysuria, lightheadedness and calf pain. He is c/o about his diet.....he ordered a cheeseburger and he got ground meat on bread cut into 4 pieces. He is on regular textures so I am not sure why he did not get a cheeseburger. He is on nectar thick liquids per the ST note today. He is also on the [employer] protocol. The nurses have him as being on easy to chew foods? Objective Data Objective Data Vital Signs: Vital Signs Temp Pulse Resp BP Pulse Ox O2 Del Method O2 Flow Rate 99.1 F 96 16 148/89 H 97 Room Air 10 12/29/22 10:00 12/29/22 10:00 12/29/22 10:00 12/29/22 10:00 12/29/22 10:00 12/29/22 10:00 12/25/22 13:00 Oxygen Flow Rate (L/min) 10 Oxygen Delivery Method Room Air Weight: 142 lb 3.17 oz Body Mass Index (BMI) 19.0 Intake & Output: Intake and Output for Last 24 Hours 12/27/22 12/28/22 12/29/22 23:59 23:59 23:59 Intake Total 1110 / 1110 1295 / 1295 1150 / 1150 Output Total 750 / 750 1050 / 1050 225 / 225 Balance 360 / 360 245 / 245 925 / 925 Medical Nutrition Assessment Dietitian: Malnutrition Criteria Met Start: 12/23/22 13:09 Freq: Status: Active Protocol: Document 12/29/22 10:45 RMA (Rec: 12/29/22 10:45 RMA [id number]) Nutrition Malnutrition Evidence of Malnutrition Exists Yes Malnutrition (severe): Acute Illness/Injury Evidenced By Suboptimal Energy Intake ( Severe),Weight Loss (Severe), Physical Changes (Moderate) Clinical Problem Acute Disease or Injury Related Malnutrition Etiology Severe protein-calorie malnutrition in the context of acute disease/stroke related to inadequate oral intake Signs/Symptoms as evidenced by ~14% wt loss x 2 weeks, PO meeting less than 50% estimated nutrition needs and moderate muscle/fat wasting in the clavicle, face, orbitals, hands and legs Status Active Problem Recommendation Dietitian Recommendations/Changes Will liberalize diet to regular/no added salt due to signs/symptoms of malnutrition ; consistency/texture as per DIRECTOR CARDIOVASCULAR. Will continue 120ml ensure plus high protein 4 times per day w/ medpass. Will continue magic cup w/ lunch Q day as tolerated. Adjust ONS as needed. Trend weight closely. Lab / Micro Data Result Diagrams: 12/30/22 05:36 12/30/22 05:36 Micro: Microbiology 12/24/22 07:45 Stool Stool Occult Blood (POPPY) - Final Occult Blood Positive Physical Exam Const alert Constitutional Narrative: He is oriented to person, month, place, the president's name and the governor's name. He told me it is 2002. He mentioned that he had a hard time with ST today and was surprised at not being able to figure things out. He infrequently makes eye contact with me when he is talking. He tends to ramble but, stayed on topic the majority of the time. General Appearance: cooperative HEENT Mouth: dry mucous membranes Resp normal respiratory effort and normal air movement Resp Narrative: Coarse crackles in the R base that do not improve after several deep breaths. Effort and Inspection: Negative for tachypneic or labored Cardio Cardio Narrative: Irregular, irregular with controlled ventricular response. No gallop. GI normal to inspection, nondistended, normoactive bowel sounds, soft to palpation and non-tender GI Narrative: No guarding with palpation of the epigastric region. Skin General Skin Exam: no breakdown Rashes: no rashes Psych cooperative Psych Narrative: Does not look at me when talking. Assessment & Plan Assessment/Plan (1) Physical debility: (2) Stroke/cerebrovascular accident: (3) Afib: (4) Weight loss, unintentional: (5) Abnormal CT of the abdomen: (6) Nausea & vomiting: (7) Chronic anticoagulation: (8) UGI bleed: (9) Hypotension: (10) Dehydration: (11) Severe protein-calorie malnutrition: (12) Gastric ulcer: PLAN: Plan 1. Continue therapy 2. CBC, BMP and mag in the a.m. 3. He denies abd pain, N/V but, he is not eating and this has been going on since this past summer to the point that he now has severe protein calorie malnutrition. I think that he is depressed. He is also tearful at times but, family tells me and the SW that this is the way he has always been. I think the confusion is likely multifactorial and due to Stroke, malnutrition, high TSH, depression. Will continue the Remeron which he is tolerating with no adverse SE's. If at the end of this week he has had no SE's will increase the dose to 15 mg. Will check a B12 and obtain a copy of the MRI done at [facility]. On the CT done here in the ER he had only mild cerebral and cerebellar atrophy and no masses. I am not suspicious of NPH.....he had no ataxia and no urine incontinence prior to the stroke and the urine incontinence has resolved. Charges/Coding Visit Charges Inpatient E&M: 72621 Subs Hosp L2
--- NOTE | 2022-12-29 15:36 | NURSING ---
Diet order changed to regular consistency per Dr. Sidhu order.
--- NOTE | 2022-12-29 16:02 | CHAPLAIN ---
Type of Pastoral Visit ___ Initial Visit _x__ Follow-up Visit ___ On-call Visit ___ General Patient Visit ___ Spiritual Assessment ___ Family Conference ___ Bereavement ___ Rapid Response ___ Code Blue ___ Other (describe below) Pastoral Care Referral From _x__ Patient ___ Family ___ Nurse ___ Physician ___ Water Mechanic ___ Impregnator And Drier Helper ___ Other (describe below) Sacrament/Intervention _x__ Active listening ___ Anointing ___ Church ___ Bereavement ___ Communion ___ Natalia exploration ___ _x__ Life review _x__ Prayer ___ Reconciliation ___ Sacrament of Sick _x__ Supportive presence ___ Wedding ___ Other (describe below) Pastoral Comments patient is sitting up in chair and more alert than when previously seen; pt is talkative and gives some life review; pt speaks of his diet and that his family will be coming in soon to see him; pt does welcome the visit and a prayer for his support
[2022-12-29 19:25] VITALS: BP 113/70; PULSE 65; RESP 16; TEMP 36.9; O2SAT 96
[2022-12-29] MEDS: Atorvastatin Calcium 40 MG Tablet PO (21:46)
[2022-12-29 21:47] VITALS: PULSE 62
[2022-12-29] MEDS: Metoprolol Tartrate 100 MG Tablet PO (21:47)
[2022-12-29] MEDS: Mirtazapine 15 MG Tablet 7.5 MG PO (21:47)
[2022-12-29] MEDS: 0.9% Saline Lock 10 ML Syringe IV (21:50)
[2022-12-29 22:00] VITALS: PULSE 63; RESP 16; O2SAT 96
[2022-12-29 22:03] VITALS: BMI 19.0
[2022-12-30 05:46] LABS: Hematocrit 29.9 % (40-54); Hemoglobin 9.6 g/dL (13.0-16.5); Mean Corp Hgb Conc 32.1 g/dL (32-36); Mean Corpuscular Hgb 32.5 pg (27.0-32.0); Mean Corpuscular Volume 101.4 fL (80-94); Mean Platelet Vol. 8.7 fl (6.2-12.0); Platelet Count 219 K/mm3 (150-450); RBC Distribution Width CV 16.3 % (11.6-14.6); RBC Distribution Width SD 55.8 fl (35.1-43.9); Red Blood Count 2.95 M/mm3 (4.6-6.2)
[2022-12-30] MEDS: Nystatin Powder 15gm Bottle 1 APPLIC TOPICAL ×3 (06:20→22:01)
[2022-12-30 06:38] LABS: Anion Gap 4 (5-15); BUN 23 mg/dL (7-18); BUN/Creat Ratio 22.1 RATIO (10-20); Calcium,Total 8.5 mg/dL (8.5-10.1); Chloride 112 mmol/L (98-107); Creatinine, Serum 1.04 mg/dL (0.70-1.30); EST Glomerular Filtration Rate 72 mL/min (>60); Est Glom Filt Rate - Afr Amer 87 mL/min (>60); Estimated Creatinine Clearance 47.38 ml/min; Glucose 94 mg/dL (74-106); Magnesium 1.9 mg/dL (1.6-2.6); Potassium 4.2 mmol/L (3.5-5.1); Sodium Level 145 mmol/L (136-145)
[2022-12-30 07:22] VITALS: BP 137/77; PULSE 84; RESP 16; TEMP 36.8; O2SAT 96
[2022-12-30 07:55] VITALS: BP 137/77; PULSE 84
[2022-12-30] MEDS: Senna/Docusate Sodium 1 Tablet 2 TABLET PO (07:55)
[2022-12-30] MEDS: Metoprolol Tartrate 50 MG Tablet PO (07:55)
[2022-12-30] MEDS: Losartan Potassium 50 MG Tablet PO (07:55)
[2022-12-30] MEDS: Ensure Plus High Protein 120 ML LIQUID PO ×3 (07:57→21:45)
[2022-12-30 08:24] LABS: Vitamin B12 96 pg/mL (211-911)
--- NOTE | 2022-12-30 10:25 | PN_ITS ---
Subjective Subjective AF VSS maintaining appropriate oxygen saturation on RA Excellent oral intake yesterday - 1989 yesterday Poor memory. Also confabulates. Told me yesterday that he did not like his lunch and he had ordered more food but, the nurses had not been told he wanted a different lunch and pt did not call the kitchen. I strongly suspect that he has underlying dementia. All lab was personally reviewed. HGB is stable and the WBC is WNL and so are the platelets. Creat is stable but the BUN/CREAT ratio is high......he is doing better with fluids however. B12 is very low at 96. Speech is slow and halting. Having trouble finding words and finishing sentences. Realizes he is having trouble with his thought processing. Girish denies lightheadedness, vertigo, CP, SOB at rest, SOB with exertion, cough, nausea, vomiting, abd pain, diarrhea, constipation, dysuria, calf pain and ankle swelling. He is sleeping well at night. Appetite is poor......mostly drinking fluids but, he is drinking the supplements provided by the embedded software design engineer. Objective Data Objective Data Vital Signs: Vital Signs Temp Pulse Resp BP Pulse Ox O2 Del Method O2 Flow Rate 98.3 F 84 16 137/77 H 96 Room Air 10 12/30/22 07:22 12/30/22 07:55 12/30/22 07:22 12/30/22 07:55 12/30/22 07:22 12/30/22 07:22 12/25/22 13:00 Oxygen Flow Rate (L/min) 10 Oxygen Delivery Method Room Air Weight: 142 lb 3.17 oz Body Mass Index (BMI) 19.0 Intake & Output: Intake and Output for Last 24 Hours 12/28/22 12/29/22 12/30/22 23:59 23:59 23:59 Intake Total 1295 / 1295 2108.25 / 2108.25 660 / 660 Output Total 1050 / 1050 725 / 725 Balance 245 / 245 1383.25 / 1383.25 660 / 660 Medical Nutrition Assessment Dietitian: Malnutrition Criteria Met Start: 12/23/22 13:09 Freq: Status: Active Protocol: Document 12/29/22 10:45 RMA (Rec: 12/29/22 10:45 RMA [id number]) Nutrition Malnutrition Evidence of Malnutrition Exists Yes Malnutrition (severe): Acute Illness/Injury Evidenced By Suboptimal Energy Intake ( Severe),Weight Loss (Severe), Physical Changes (Moderate) Clinical Problem Acute Disease or Injury Related Malnutrition Etiology Severe protein-calorie malnutrition in the context of acute disease/stroke related to inadequate oral intake Signs/Symptoms as evidenced by ~14% wt loss x 2 weeks, PO meeting less than 50% estimated nutrition needs and moderate muscle/fat wasting in the clavicle, face, orbitals, hands and legs Status Active Problem Recommendation Dietitian Recommendations/Changes Will liberalize diet to regular/no added salt due to signs/symptoms of malnutrition ; consistency/texture as per SCIENCE LIAISON. Will continue 120ml ensure plus high protein 4 times per day w/ medpass. Will continue magic cup w/ lunch Q day as tolerated. Adjust ONS as needed. Trend weight closely. Lab / Micro Data Result Diagrams: 01/03/23 06:58 01/03/23 06:58 Labs: Laboratory Results - last 24 hr 12/30/22 05:36: WBC 7.0, RBC 2.95 L, Hgb 9.6 L, Hct 29.9 L, MCV 101.4 H, MCH 32.5 H, MCHC 32.1, RDW Std Deviation 55.8 H, RDW Coeff of Jonn 16.3 H, Plt Count 219, MPV 8.7 12/30/22 05:36: Sodium 145, Potassium 4.2, Chloride 112 H, Carbon Dioxide 29.0, Anion Gap 4 L, BUN 23 H, Creatinine 1.04, Estim Creat Clear Calc 47.38, Est GFR (MDRD) Af Amer 87, Est GFR (MDRD) Non-Af 72, BUN/Creatinine Ratio 22.1 H, Glucose 94, Calcium 8.5, Magnesium 1.9 12/30/22 05:36: Vitamin B12 96 L Micro: Microbiology 12/24/22 07:45 Stool Stool Occult Blood (POPPY) - Final Occult Blood Positive Physical Exam Const Constitutional Narrative: Somewhat drowsy. Having trouble with word finding. Seems frustrated. Told me again about the poor performance with speech therapy. General Appearance: cooperative Resp normal respiratory effort and normal air movement Resp Narrative: Coarse crackles in the R base that do not improve after several deep breaths. Effort and Inspection: Negative for tachypneic Cardio no gallops Cardio Narrative: Irregular, irregular with controlled ventricular response. No gallop. GI normal to inspection, nondistended, normoactive bowel sounds, soft to palpation, non-tender and non-distended GI Narrative: No guarding with palpation of the epigastric region. Extremity no calf tenderness General Extremity: Negative for edema Skin General Skin Exam: no breakdown and dry skin Rashes: no rashes Psych cooperative, denies homicidal ideation and denies suicidal ideation Psych Narrative: Does not look at me when talking. Appearance: appropriate Mood & Affect: flat affect Assessment & Plan Assessment/Plan (1) Physical debility: (2) Stroke/cerebrovascular accident: (3) Afib: (4) Weight loss, unintentional: (5) Abnormal CT of the abdomen: (6) Nausea & vomiting: QUALIFIERS: Vomiting type: unspecified Qualified Code(s): R11.2 - Nausea with vomiting, unspecified (7) Chronic anticoagulation: (8) UGI bleed: (9) Hypotension: (10) Dehydration: (11) Severe protein-calorie malnutrition: (12) Gastric ulcer: (13) B12 deficiency: (14) Anorexia: (15) Acute depression: PLAN: Plan 1. Continue therapy 2. Vitamin B12 1000 mg IM daily x7 and then weekly x4 and then check a B12 level and will likely need B12 1000 mg IM or subcu monthly. 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 3. Check a folate level Charges/Coding Visit Charges Inpatient E&M: 69534 Subs Hosp L2
[2022-12-30] MEDS: 0.9% Saline Lock 10 ML Syringe IV ×2 (10:49→21:47)
--- NOTE | 2022-12-30 11:33 | CASEMGMT ---
Addendum entered by Judy Del Rosario 12/30/22 15:14: [facility] can accept. Original Note: Social Work Received call from BRENNEN, Lopez, ([phone]/ of [facility] who gave permission to receive information. BRENNEN is present in town from [place], assisting and pt). BRENNEN requesting updated information on pt's progress and DC plans prior to Team meeting . BRENNNE explained was not able to recall all of the information given at last Team meeting, unaware of progress, DC date, DC plans, etc. SW spoke with Brennen approximately 30 minutes to answer questions, provide therapy updates and DC date of 01/04. Explained appeal rights, but pt is progressing very well. IDT expressed pt is doing well and has no concerns with pt discharging home with . was managing meds and finances prior, as pt still having poor memory. However, will only need to physically assist with david hose and safety with bathing and steps. BRENNEN reported and pt expressed concern with DC home at this time and inquired about options. SW explained home with skilled HHC vs SNF under Medicare benefit. Offered SNF list. BRENNEN stated already received a list prior to her stay and family already comfortable with TCU. SW offered to refer to TCU, but asked for additional choices if there is no beds available. BRENNEN provided [facility] and [facility] and agreeable to referrals, if family does not select home at DC. SW offered therapy family training. BRENNEN expressed interest in completing to see how pt is progressing. BRENNEN expressed appreciation of time and information, and will relay all information to family. BRENNEN to notify this worker of scheduling therapy training, and home vs SNF. SW made referrals [facility] and [facility] via [facility]. TCU is unsure of beds but has been placed on waiting list. Plan: DC 01/04 home vs SNF SW to continue to follow. Judy Del Rosario, FELIZ SAMPLE GRINDER
[2022-12-30] MEDS: Cyanocobalamin (B12) 1,000 MCG/ML Vial 1000 MCG IM (13:21)
[2022-12-30 13:49] VITALS: BMI 19.0
[2022-12-30 19:19] VITALS: BP 132/68; PULSE 86; RESP 16; TEMP 36.8; O2SAT 97
[2022-12-30 19:23] VITALS: BMI 19.0
[2022-12-30 19:25] VITALS: PULSE 86; RESP 16; O2SAT 97
[2022-12-30 21:45] VITALS: PULSE 88
[2022-12-30] MEDS: Atorvastatin Calcium 40 MG Tablet PO (21:45)
[2022-12-30] MEDS: Metoprolol Tartrate 100 MG Tablet PO (21:45)
[2022-12-30] MEDS: Mirtazapine 15 MG Tablet 7.5 MG PO (21:46)
[2022-12-31] MEDS: Nystatin Powder 15gm Bottle 1 APPLIC TOPICAL ×3 (05:28→20:39)
[2022-12-31 07:31] VITALS: BP 117/75; PULSE 84; RESP 16; TEMP 36.3; O2SAT 100
[2022-12-31 08:10] VITALS: BP 117/75; PULSE 84
[2022-12-31] MEDS: Metoprolol Tartrate 50 MG Tablet PO (08:10)
[2022-12-31] MEDS: Cyanocobalamin (B12) 1,000 MCG/ML Vial 1000 MCG IM (08:10)
[2022-12-31] MEDS: Losartan Potassium 50 MG Tablet PO (08:10)
[2022-12-31] MEDS: Ensure Plus High Protein 120 ML LIQUID PO ×4 (08:10→20:32)
[2022-12-31] MEDS: 0.9% Saline Lock 10 ML Syringe IV (09:38)
[2022-12-31 12:17] VITALS: BMI 19.0
--- NOTE | 2022-12-31 15:23 | CASEMGMT ---
Social Work SW spoke with BRENNENLopez, at length to review plan of care and answer questions. and BRENNEN will be present for therapy sessions tomorrow and Team meeting. Family would prefer pt DC to TCU, if cannot go home. SW updated BRENNEN that TCU can accept but unsure about bed availability, however, [facility] can accept. BRENNEN expressed understanding and appreciation for assistance. SW to continue to follow. Judy Del Rosario, NURSE PRACTITIONER PHYSICIANS ASSISTANT PRIMARY EDUCATION PROFESSOR
[2022-12-31 19:37] VITALS: BP 110/62; PULSE 85; RESP 17; TEMP 36.6; O2SAT 98
[2022-12-31 20:32] VITALS: BP 118/79; PULSE 85
[2022-12-31] MEDS: Metoprolol Tartrate 100 MG Tablet PO (20:32)
[2022-12-31] MEDS: Atorvastatin Calcium 40 MG Tablet PO (20:32)
[2022-12-31] MEDS: Senna/Docusate Sodium 1 Tablet 2 TABLET PO (20:32)
[2022-12-31] MEDS: Mirtazapine 15 MG Tablet 7.5 MG PO (20:33)
[2022-12-31 22:45] VITALS: O2SAT 98
[2023-01-01] MEDS: Nystatin Powder 15gm Bottle 1 APPLIC TOPICAL ×3 (06:07→20:39)
[2023-01-01 07:50] VITALS: BP 122/86; PULSE 77; RESP 16; TEMP 36.1; O2SAT 98
[2023-01-01 08:16] VITALS: BP 122/86; PULSE 77
[2023-01-01] MEDS: Senna/Docusate Sodium 1 Tablet 2 TABLET PO (08:16)
[2023-01-01] MEDS: Metoprolol Tartrate 50 MG Tablet PO (08:16)
[2023-01-01] MEDS: Losartan Potassium 50 MG Tablet PO (08:17)
[2023-01-01] MEDS: Cyanocobalamin (B12) 1,000 MCG/ML Vial 1000 MCG IM (08:17)
[2023-01-01] MEDS: Ensure Plus High Protein 120 ML LIQUID PO ×2 (08:20→20:37)
--- NOTE | 2023-01-01 12:25 | PN_ITS ---
Subjective Subjective Girish was seen on team rounds today. His , his son-in-law and his son were present in the room. All questions were answered. Afebrile VSS Maintaining appropriate oxygen saturation on RA Oral intake is improving Discussed with nursing - no problems that need addressed. He is sleeping well at night and his appetite has improved somewhat. Starting to eat some solid food. Reviewed the PT/OT/ST notes Medication list reviewed. Girish denies chest pain, nausea, epigastric pain, shortness of breath, cough, c teri pain, dysuria and lightheadedness. He is complaining of some arthritic pain in his knees occasionally. He is likely doing more exercise and physical therapy now than he was doing at home which may exacerbate his osteoarthritis. Objective Data Objective Data Vital Signs: Vital Signs Temp Pulse Resp BP Pulse Ox O2 Del Method O2 Flow Rate 96.9 F L 77 16 122/86 H 98 Room Air 10 01/01/23 07:50 01/01/23 08:16 01/01/23 07:50 01/01/23 08:16 01/01/23 07:50 01/01/23 07:50 12/25/22 13:00 Oxygen Flow Rate (L/min) 10 Oxygen Delivery Method Room Air Weight: 142 lb 3.17 oz Body Mass Index (BMI) 19.0 Intake & Output: Intake and Output for Last 24 Hours 12/30/22 12/31/22 01/01/23 23:59 23:59 23:59 Intake Total 890 / 890 170 / 170 Output Total 400 / 400 350 / 350 Balance 490 / 490 170 / 170 -350 / -350 Medical Nutrition Assessment Dietitian: Malnutrition Criteria Met Start: 12/23/22 13:09 Freq: Status: Active Protocol: Document 12/29/22 10:45 RMA (Rec: 12/29/22 10:45 RMA [id number]) Nutrition Malnutrition Evidence of Malnutrition Exists Yes Malnutrition (severe): Acute Illness/Injury Evidenced By Suboptimal Energy Intake ( Severe),Weight Loss (Severe), Physical Changes (Moderate) Clinical Problem Acute Disease or Injury Related Malnutrition Etiology Severe protein-calorie malnutrition in the context of acute disease/stroke related to inadequate oral intake Signs/Symptoms as evidenced by ~14% wt loss x 2 weeks, PO meeting less than 50% estimated nutrition needs and moderate muscle/fat wasting in the clavicle, face, orbitals, hands and legs Status Active Problem Recommendation Dietitian Recommendations/Changes Will liberalize diet to regular/no added salt due to signs/symptoms of malnutrition ; consistency/texture as per APPLICATION INTEGRATION ENGINEER. Will continue 120ml ensure plus high protein 4 times per day w/ medpass. Will continue magic cup w/ lunch Q day as tolerated. Adjust ONS as needed. Trend weight closely. Lab / Micro Data Result Diagrams: 01/03/23 06:58 01/03/23 06:58 Micro: Microbiology 12/24/22 07:45 Stool Stool Occult Blood (POPPY) - Final Occult Blood Positive Physical Exam Const alert and no apparent distress Constitutional Narrative: Making better eye contact today. More alert today and speech is more fluid. General Appearance: cooperative and comfortable HEENT Mouth: dry mucous membranes Resp normal respiratory effort and no use of accessory muscles Resp Narrative: Coarse crackles in the right base persistently . Do not resolve with a few deep breaths. Effort and Inspection: Negative for tachypneic Cardio no murmurs, no rub and no gallops Cardio Narrative: Irregular irregular rhythm with controlled ventricular response. GI normal to inspection, nondistended, normoactive bowel sounds, non-tender and non-distended GI Narrative: no guarding with palpation Extremity no clubbing, cyanosis or edema Skin no rashes or lesions noted, no wounds and no jaundice Neuro CN's II-XII intact bilaterally and no focal motor deficits Neuro Narrative: He has generalized weakness. He is more alert since the B12 supplementation has started. He makes better eye contact when talking with me now and his speech is more fluid. Sensorium / Orientation: alert Assessment & Plan Assessment/Plan (1) Stroke/cerebrovascular accident: (2) Physical debility: (3) UGI bleed: (4) Gastric ulcer: (5) Severe protein-calorie malnutrition: (6) B12 deficiency: (7) Cognitive dysfunction: (8) Anorexia: (9) Acute depression: PLAN: Plan 1. Continue therapy 2. Continue vitamin B12 1000 mg IM daily for a total of 7 doses and then decrease to 1000 mg weekly x4 to 6 weeks and then to monthly. 3. Discussed restarting Eliquis with Dr. Boone and he is agreeable to this. 4. Continue Remeron 7.5 mg nightly 5. We had a discussion during rounds about transfer to TCU following discharge on Thursday. Girish has good insight now into his deficits and into his improvement recently. He is agreeable to going to TCU. log pond worker will save a bed for him. Charges/Coding Visit Charges Inpatient E&M: 70490 Subs Hosp L2
--- NOTE | 2023-01-01 12:46 | CASEMGMT ---
Social Work IDT met with patient, , and two son's for Team meeting. Discussed patient's progress in PT/OT/ST/SN. Educated to Medicare benefit with DC 01/04. Discussed home vs TCU. Family completed therapy training today. Pt and family would like additional therapy and nursing care and prefer TCU. SW secured bed in TCU and Medicare to provide coverage. Michele: DC 01/04 to TCU, skilled FELIZ RivasW
[2023-01-01 13:17] VITALS: BMI 19.0
[2023-01-01 20:30] VITALS: BP 108/52; PULSE 95; RESP 16; TEMP 36.7; O2SAT 96; BMI 19.0
[2023-01-01] MEDS: APIXABAN 5 MG TABLET PO (20:34)
[2023-01-01] MEDS: Mirtazapine 15 MG Tablet 7.5 MG PO (20:34)
[2023-01-01 20:35] VITALS: BP 108/52; PULSE 95
[2023-01-01] MEDS: Metoprolol Tartrate 100 MG Tablet PO (20:35)
[2023-01-01] MEDS: Atorvastatin Calcium 40 MG Tablet PO (20:35)
[2023-01-02 06:30] VITALS: BMI 19.8
[2023-01-02] MEDS: 0.9% Saline Lock 10 ML Syringe IV ×2 (06:39→16:34)
[2023-01-02] MEDS: Nystatin Powder 15gm Bottle 1 APPLIC TOPICAL ×3 (06:44→20:20)
[2023-01-02] MEDS: APIXABAN 5 MG TABLET PO ×2 (08:27→20:18)
[2023-01-02] MEDS: Senna/Docusate Sodium 1 Tablet 2 TABLET PO (08:27)
[2023-01-02] MEDS: Cyanocobalamin (B12) 1,000 MCG/ML Vial 1000 MCG IM (08:27)
[2023-01-02 08:28] VITALS: BP 140/77; PULSE 86
[2023-01-02] MEDS: Metoprolol Tartrate 50 MG Tablet PO (08:28)
[2023-01-02] MEDS: Losartan Potassium 50 MG Tablet PO (08:28)
[2023-01-02] MEDS: Ensure Plus High Protein 120 ML LIQUID PO ×3 (08:31→20:18)
[2023-01-02 10:00] VITALS: BP 140/77; PULSE 86; RESP 17; TEMP 36.5; O2SAT 97
[2023-01-02 13:43] VITALS: BMI 19.8
[2023-01-02 19:47] VITALS: BP 120/72; PULSE 91; RESP 18; TEMP 37.1; O2SAT 98
[2023-01-02 20:19] VITALS: BP 120/72; PULSE 91
[2023-01-02] MEDS: Metoprolol Tartrate 100 MG Tablet PO (20:19)
[2023-01-02] MEDS: Mirtazapine 15 MG Tablet 7.5 MG PO (20:19)
[2023-01-02] MEDS: Atorvastatin Calcium 40 MG Tablet PO (20:21)
[2023-01-02 20:30] VITALS: PULSE 91; RESP 18; O2SAT 98; BMI 19.8
[2023-01-03 07:09] LABS: Hemoglobin 10.3 g/dL (13.0-16.5)
[2023-01-03 07:39] LABS: Anion Gap 3 (5-15); BUN 26 mg/dL (7-18); BUN/Creat Ratio 25.5 RATIO (10-20); Calcium,Total 8.8 mg/dL (8.5-10.1); Chloride 109 mmol/L (98-107); Creatinine, Serum 1.02 mg/dL (0.70-1.30); EST Glomerular Filtration Rate 74 mL/min (>60); Est Glom Filt Rate - Afr Amer 89 mL/min (>60); Estimated Creatinine Clearance 49.65 ml/min; Glucose 89 mg/dL (74-106); Potassium 4.3 mmol/L (3.5-5.1); Sodium Level 141 mmol/L (136-145)
[2023-01-03 07:51] VITALS: BP 123/78; PULSE 77; RESP 16; TEMP 36.6; O2SAT 98
[2023-01-03] MEDS: APIXABAN 5 MG TABLET PO ×2 (09:30→20:33)
[2023-01-03 09:31] VITALS: PULSE 77
[2023-01-03] MEDS: Losartan Potassium 50 MG Tablet PO (09:31)
[2023-01-03] MEDS: Metoprolol Tartrate 50 MG Tablet PO (09:31)
[2023-01-03] MEDS: Cyanocobalamin (B12) 1,000 MCG/ML Vial 1000 MCG IM (09:32)
[2023-01-03] MEDS: Ensure Plus High Protein 120 ML LIQUID PO ×4 (09:33→20:32)
[2023-01-03] MEDS: Nystatin Powder 15gm Bottle 1 APPLIC TOPICAL ×3 (09:40→20:34)
[2023-01-03 14:09] VITALS: BMI 19.8
[2023-01-03 19:01] VITALS: BP 131/58; PULSE 93; RESP 18; TEMP 36.7; O2SAT 94
[2023-01-03] MEDS: Atorvastatin Calcium 40 MG Tablet PO (20:32)
[2023-01-03] MEDS: Mirtazapine 15 MG Tablet 7.5 MG PO (20:33)
[2023-01-03 20:35] VITALS: PULSE 93
[2023-01-03] MEDS: Metoprolol Tartrate 100 MG Tablet PO (20:35)
[2023-01-03 20:42] VITALS: BMI 19.8
[2023-01-03 22:00] VITALS: PULSE 93; RESP 18; O2SAT 94
[2023-01-04] MEDS: Nystatin Powder 15gm Bottle 1 APPLIC TOPICAL (06:51)
[2023-01-04 07:37] VITALS: BP 117/70; PULSE 76; RESP 16; TEMP 36.9; O2SAT 95
[2023-01-04 08:47] VITALS: PULSE 76
[2023-01-04] MEDS: APIXABAN 5 MG TABLET PO (08:47)
[2023-01-04] MEDS: Losartan Potassium 50 MG Tablet PO (08:47)
[2023-01-04] MEDS: Metoprolol Tartrate 50 MG Tablet PO (08:47)
[2023-01-04] MEDS: Senna/Docusate Sodium 1 Tablet 2 TABLET PO (08:48)
[2023-01-04] MEDS: Cyanocobalamin (B12) 1,000 MCG/ML Vial 1000 MCG IM (08:48)
[2023-01-04] MEDS: Ensure Plus High Protein 120 ML LIQUID PO (08:49)
[2023-01-04] MEDS: Acetaminophen 500 MG Tablet 1000 MG PO (10:53)
--- NOTE | 2023-01-04 11:54 | TREXTCAR_ITS ---
Diet Diet Order/Speech Therapy: 12/29/22 15:33 Diet: Regular - General Food consistency:: Regular Liquid Consistency:: [place]/Mildly Thick Type of Dietary Supplement:: Magic Cup Dessert Is pt able to select menu?: Yes Diet Comments: may have sips of water sparingly; magic cup at lunch Routine Orders/Code Status Enema Type: Fleetz Enema Frequency: Daily PRN Suppository Type: Dulcolax 10mg Suppository Frequency: Daily PRN O2 Liters per Minute: 1-2 O2 Frequency: PRN Keep PO Greater than or Equal to (%): 88 Therapies Weight Bearing: Full weight bearing Physical Therapy: Eval and Treat Occupational Therapy: Eval and Treat Speech Therapy: Eval and Treat Problem/Diagnosis (1) Stroke/cerebrovascular accident: Status: Acute Code(s): I63.9 - Cerebral infarction, unspecified Comment: I feel the majority of the cognitive dysfunction is due to B12 deficiency rather than to the stroke. Some of the emotional lability is possibly secondary to stroke. (2) Physical debility: Status: Acute Code(s): R53.81 - Other malaise Comment: Doing very well in therapy and is ambulating with the assistance of a front wheeled walker. (3) UGI bleed: Status: Acute Code(s): K92.2 - Gastrointestinal hemorrhage, unspecified Comment: Secondary to gastric ulcers. Currently getting Protonix 40 mg p.o. twice daily. Will follow-up with Dr. Boone as an outpatient. Hemoglobin is stable. (4) Gastric ulcer: Status: Acute Code(s): K25.9 - Gastric ulcer, unspecified as acute or chronic, without hemorrhage or perforation Comment: Gastric ulcers are likely secondary to stress. He had an EGD at [facility] and had no ulcers at that time. (5) Severe protein-calorie malnutrition: Status: Acute Code(s): E43 - Unspecified severe protein-calorie malnutrition Comment: Appetite is improving with B12 supplementation and he is starting to eat more solid food. He is compliant with the dietary supplements provided by the dietitian. (6) B12 deficiency: Status: Acute Code(s): E53.8 - Deficiency of other specified B group vitamins Comment: We will continue B12 supplementation daily until 7 days have been given and then changed to 1000 mg IM weekly x4 and then 1000 mg IM monthly. We will recheck a B12 level in 1 month. (7) Cognitive dysfunction: Status: Acute Code(s): F09 - Unspecified mental disorder due to known physiological condition Comment: Cognition has improved with initiation of B12 supplementation and his speech is much more fluent now. He is having less difficulty with word finding and is able to hold a conversation. (8) Anorexia: Status: Acute Code(s): R63.0 - Anorexia Comment: I suspect the anorexia started last summer and is due to B12 deficiency as this is one of the possible problems caused by B12 deficiency. (9) Acute depression: Status: Acute Code(s): F32.A - Depression, unspecified Comment: Continue Remeron 7.5 mg p.o. nightly. He still has some emotional lability and cries easily but his family said this is his baseline. Appetite is improving. He is making good eye contact with me now when we speak. (10) Dehydration: Status: Resolved Code(s): E86.0 - Dehydration (11) Hypotension: Status: Resolved Code(s): I95.9 - Hypotension, unspecified Comment: Resolved with hydration. (12) Chronic anticoagulation: Status: Acute Code(s): Z79.01 - exterminator helper termite (current) use of anticoagulants Comment: Eliquis has been restarted and hemoglobin remained stable. (13) Nausea & vomiting: Status: Resolved Code(s): R11.2 - Nausea with vomiting, unspecified Comment: I suspect that the nausea that he has had since last summer was due to B12 deficiency. (14) Afib: Status: Chronic Code(s): I48.91 - Unspecified atrial fibrillation Comment: chronic persistent AF. Rate is adequately controlled. (15) HTN (hypertension): Status: Chronic Code(s): I10 - Essential (primary) hypertension Plan 1. Transfer to TCU 2. Continue therapy with the plan for home at discharge from TCU. 3. Continue B12 supplementation IM. 4. Continue Remeron 7.5 mg nightly. Appetite has been improving and he is sleeping well. It is likely that some emotional lability is due to the frontal stroke but his family states that he cries easily and baseline. Continue to monitor for signs of depression. Allergies/Procedures Done in Hospital Allergies No Known Allergies Allergy (Verified 12/10/22 19:01) Procedures: EGD (EGD revealed multiple gastric ulcers, some of them actively bleeding and required treatment with a heat probe.) Type of Care/Length of Stay Estimated LOS: Convalescent Care Less Than 30 days Type of Care Needed: Skilled Rehab Potential: Good Prognosis: Good Additional Orders/Day of Discharge Additional Orders: Needs to continue with IM B12 supplementation. 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 Would continue B12 supplementation 1000 mg IM monthly following discharge from TCU. Daily doses of B12 will finish after the dose on 01/05 and on 01/06/23 will start 1,000 mg weekly X 4 doses and then 1,000 mg monthly after that. H&P will serve as current which was dated: 12/22/22 Day of Discharge: 01/04/23 Dietary and Speech Recommendations Dietitian Recommendations/Changes: Will liberalize diet to regular/no added salt due to signs/symptoms of malnutrition; consistency/texture as per SCRAP COLLECTOR. Will continue 120ml ensure plus high protein 4 times per day w/ medpass. Will continue magic cup w/ lunch Q day as tolerated. Adjust ONS as needed. Trend weight closely. Follow Up Care Please follow up with your Primary Care Physician in: In 1 to 2 weeks following discharge from transitional care. Please Follow Up With: Jean-Pierre Boone DO When: In 2 months postdischarge. Please Follow Up With: neurology Discharge Plan Admission Admit Date/Time: 12/22/22 12:43 Primary Reason for Your Visit: Post stroke debility Attending Provider: Eliana Sidhu Primary Care Provider: Attila Riojas Consulting Providers: Jean-Pierre Boone Instructions Additional Instructions / Restrictions: 1. Your PCP may want to check you for intrinsic factor deficiency. Intrinsic Factor (IF) is produced in the gastrointestinal tract and it is necessary to be able to absorb B12 into your body. B12 deficiency can cause anemia, dementia, numbness in the hands and feet, dysequilibrium, anorexia, tiredness and difficulty with walking. You have severe B12 deficiency and because you have cognitive dysfunction it is appropriate to treat you with large doses of intram uscular B12. Some people are able to take B12 orally and patients with a IF deficiency must take it IM (intramuscular). 2. You will need to follow-up with a neurologist following discharge from [facility] because of the stroke. The neurologist will also address the cognitive dysfunction and the B12 deficiency. 3. I will send copies of your discharge summary to Dr. Mely Medina and the neurologist that you choose to follow with. 4. If you have any questions following discharge from rehab please do not hesitate to call me. Office: [phone] Discharge Orders/Prescriptions Prescriptions: New sennosides-docusate sodium [Stool Softener-Stimulant Laxat] 8.6-50 mg Tablet 2 tab PO BID Qty: 0 0RF acetaminophen 500 mg Tablet 1,000 mg PO Q6H PRN PRN (Reason: Pain 1-10 Or Fever) Qty: 0 0RF magnesium hydroxide 400 mg/5 mL Suspension 30 ml PO .PRN X 1 PRN (Reason: Constipation) Qty: 0 0RF cyanocobalamin (vitamin B-12) 1,000 mcg/mL Solution 1,000 mcg IM DAILY Qty: 0 0RF mirtazapine 15 mg Tablet 7.5 mg PO QHS Qty: 0 0RF nystatin [Nyamyc] 100,000 unit/gram Powder 1 applic topical TID Qty: 0 0RF Protocol: *Topical Application Instructions APPLICATION INSTRUCTIONS: Apply to umbilicus. Ensure Plus High Protein 0.08 gram-1.5 kcal/mL Liquid 120 ml PO 4X/DAY Qty: 0 0RF Continued losartan 50 mg Tablet 50 mg PO DAILY atorvastatin 40 mg Tablet 40 mg PO QHS metoprolol tartrate 100 mg Tablet 100 mg PO DAILY@2200 metoprolol tartrate 50 mg Tablet 50 mg PO DAILY apixaban 5 mg Tablet 5 mg PO BID Discontinued hydroxyzine HCl 25 mg Tablet 12.5 mg PO TID PRN (Reason: Anxiety) Referrals / Follow Up: Carley Edouard [Other] - 02/13/23 10:45 am (neuro outpatient surgery ) Jean-Pierre Boone DO [Med Staff - Active Staff] - Attila Riojas MD [Primary Care Provider] - Disposition Disposition (needs filled in before D/C Order can be placed): [facility] (1) Nausea & vomiting Qualifiers: Vomiting type: unspecified Qualified Code(s): R11.2 - Nausea with vomiting, unspecified
--- NOTE | 2023-01-04 12:38 | EX.DISCHREH ---
Providers Date of Admission: 12/22/22 Date of Discharge: 01/04/23 Primary Care Physician: Dr. Attila Riojas MD Consultations 12/24/22 10:59 Consult: Gastroenterology Routine Consulting Provider: [facility] Reason for Consult: positive occult stool EMERGENT Consult: No MD Notified: Yes Date Notified: 12/24/22 Time Notified: 11:02 Method of Notification: Verbal Method of Consult:: In-Person Comments:: Dr Boone consulted p/Dr dumont Reason For Visit: CVA Diagnosis Discharge Diagnosis (1) Stroke/cerebrovascular accident: Status: Acute Code(s): I63.9 - Cerebral infarction, unspecified Plan: Right frontal opercular region - punctate. He received TPA with good results. (2) Physical debility: Status: Acute Code(s): R53.81 - Other malaise (3) UGI bleed: Status: Acute Code(s): K92.2 - Gastrointestinal hemorrhage, unspecified (4) Gastric ulcer: Status: Acute Code(s): K25.9 - Gastric ulcer, unspecified as acute or chronic, without hemorrhage or perforation Plan: EGD showed esophagitis with no bleeding at 36 to 38 cm from the incisors. There were 4 oozing cratered gastric ulcers with pigmented material in the gastric fundus. A heater probe was used for coagulation. There were 2 nonbleeding linear gastric ulcers with no stigmata of bleeding found at the incisor. Biopsies were taken. 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 H. pylori was negative. (5) Severe protein-calorie malnutrition: Status: Acute Code(s): E43 - Unspecified severe protein-calorie malnutrition Plan: Intake is improving with B12 supplementation and Remeron. (6) B12 deficiency: Status: Acute Code(s): E53.8 - Deficiency of other specified B group vitamins Plan: B12 is only 96 and he is receiving parenteral B12 due to severe neurologic deficits thought to be related to B12 deficiency +/- stoke. (7) Cognitive dysfunction: Status: Acute Code(s): F09 - Unspecified mental disorder due to known physiological condition Plan: Improving. (8) Anorexia: Status: Acute Code(s): R63.0 - Anorexia Plan: This began in April of 2022 and I suspect it is due to B12 deficiency +/- depression. (9) Acute depression: Status: Acute Code(s): F32.A - Depression, unspecified Plan: Tolerating Remeron at 7.5 mg Q HS. (10) Dehydration: Status: Resolved Code(s): E86.0 - Dehydration Plan: Acute on chronic. (11) Hypotension: Status: Resolved Code(s): I95.9 - Hypotension, unspecified (12) Chronic anticoagulation: Status: Chronic Code(s): Z79.01 - skilled nursing (current) use of anticoagulants Plan: Elvis (13) Nausea & vomiting: Status: Resolved Code(s): R11.2 - Nausea with vomiting, unspecified Qualifiers: Vomiting type: unspecified Qualified Code(s): R11.2 - Nausea with vomiting, unspecified (14) Afib: Status: Chronic Code(s): I48.91 - Unspecified atrial fibrillation (15) HTN (hypertension): Status: Chronic Code(s): I10 - Essential (primary) hypertension Plan 1. Transfer to TCU 2. Continue therapy with the plan for home at discharge from TCU. 3. Continue B12 supplementation IM. 4. Continue Remeron 7.5 mg nightly. Appetite has been improving and he is sleeping well. It is likely that some emotional lability is due to the frontal stroke but his family states that he cries easily and baseline. Continue to monitor for signs of depression. Medications at Discharge Home Medications apixaban 5 mg tablet 5 mg PO BID blood thinner 12/22/22 atorvastatin 40 mg tablet 40 mg PO QHS reduce cholesterol 12/22/22 losartan 50 mg tablet 50 mg PO DAILY bp 12/22/22 metoprolol tartrate 100 mg tablet 100 mg PO DAILY@2200 bp 12/22/22 metoprolol tartrate 50 mg tablet 50 mg PO DAILY bp 12/22/22 acetaminophen 500 mg tablet 1,000 mg PO Q6H PRN PRN Pain 1-10 Or Fever #0 tabs 01/04/23 cyanocobalamin (vitamin B-12) 1,000 mcg/mL injection solution 1,000 mcg IM DAILY B12 Deficiency 01/04/23 food supplemt, lactose-reduced 0.08 gram-1.5 kcal/mL oral liquid (Ensure Plus High Protein) 120 ml PO 4X/DAY Supplement 01/04/23 magnesium hydroxide 400 mg/5 mL oral suspension 30 ml PO .PRN X 1 PRN Constipation #0 mL 01/04/23 mirtazapine 15 mg tablet 7.5 mg PO QHS Mood 01/04/23 nystatin 100,000 unit/gram topical powder (Nyamyc) 1 applic topical TID Skin 01/04/23 sennosides 8.6 mg-docusate sodium 50 mg tablet (Stool Softener-Stimulant Laxative) 2 tab PO BID Constipation 01/04/23 Hospital Course Operations None Procedures EGD (esophagitis and oozing gastric ulcers) Summary of Care Provided Minutes Spent on Discharge: 45 Hospital Course: HPI Narrative ?? ? AFSANEH AMADO, is a 87 YO M with a PMH of hypertension and atrial fibrillation (on warfarin) who presented to the ED at [facility] on 12/10/22 with c/o L side weakness in the arm/leg, facial droop and slurred speech.? His daughter had called 911 and he was immediately taken to the emergency department at onset of symptoms.? By the time he arrived in the emergency department his symptoms were improving.? His NIHSS was 5.? A noncontrast CT brain showed no acute findings.? CTA of the head and neck showed mild atherosclerotic plaque formation of the origin of the right internal carotid artery with less than 50% cross-sectional diameter stenosis.? There was mild atherosclerotic plaque at the origin of the left internal carotid artery with less than 60% cross-sectional diameter stenosis.? There was calcified plaque of the right cavernous carotid artery with a mild stenosis estimated at less than 50% and also calcified plaque of the left cavernous carotid artery also estimated at less than 50%.? Consult was obtained with [facility] teleneurology.? While being interviewed by Dr. Carlos from [facility] the patient's symptoms once again acutely worsened with left arm weakness, left facial droop and slurred speech.? Since his INR was only 1.3 IV tPA was recommended.? He was administered tenecteplase at [facility] and again his condition worsened.? He went for a NC CTB and which was negative for bleeding.? He was transferred to [facility] for further neurologic tx. ? He was in AF while in the ED and he was given 20 mg of IV diltiazem for rate control.? At arrival to [facility] his NIHSS was 1 for dysarthria.? MRI at [facility] showed a punctate focus of restricted diffusion in the right frontal opercular region in keeping with a small acute infarct.? Repeat CTB 24 hours after tenecteplase showed no hemorrhage.? Significant lab included an LDL of 96, HDL of 35 and a hemoglobin A1c of 5.7.? Since the infarct was small he was started on anticoagulation with Eliquis.? He was maintained on a statin and ASA.? CXR at [facility] showed small BL pleural effusions with prominent R hilar node and R axillary node of uncertain significance.? There was also an age indeterminant L1 superior endplate compression fracture.? While at [facility] he also had a CT scan of the abdomen and pelvis with contrast that showed a wedged shaped area of hypoattenuation in the spleen concerning for infarct, prominent irregular wall thickening at the gastroesophageal junction extending into the gastric cardia and concerning for an infiltrative neoplastic lesion, multiple areas of irregular wall thickening and mucosal hyperenhancement in segments of the ileum, some of which appeared narrowed.? He also had cholelithiasis and colonic diverticulosis.? An EGD was done on 12/19/22 at [facility] and there were no ulcers present. Afsaneh was transferred to [facility] acute inpt rehab on 12/22/22 for 3 hours of therapy daily to restore function/independence at or near his prior level. Afsaneh had been declining for several months, starting in April of 2022. His appetite and intake were very poor and he lost a considerable amount of weight. He had nausea and occasional emesis. His family told me that they had not noticed any significant decline in his cognitive function but, He did very poorly on cognitive testing done by the speech therapist who thought he likely had dementia. He had slow halting speech and trouble with word finding. He did not make eye contact when talking with me and he was tearful when talking. His family told me that he has always been emotional and this is not unusual for him. He was started on Remeron to stimulate his appetite and to tx suspected depression. Workup for treatable causes of dementia was initiated. The TSH was elevated at 9.73 but, free T4 was normal at 1.12. B12 was very low at 96. He was started on parenteral B12 supplementation because of severe cognitive dysfunction. He will be getting 1,000 mg IM for 7 days and then 1,000 mg IM weekly x 4 and then a B12 level will be checked. If the B12 is WNL would recommend 1,000 IM monthly. Folate was WNL. If there is consideration for switching him to an oral B12 supplement a anti-IF antibody should be checked prior to transitioning him. Afsaneh started having melanotic stool on 01/03/23 and his BP dropped to 86/49. Eliquis was placed on hold and IV fluids were started. The hypotension resolved with hydration and holding antihypertensives for 24 hours. He was started on IV Protonix 40 mg every 12 hours. He was made n.p.o. and Dr. Jean-Pierre Boone was consulted for EGD. Serial H&H was ordered and his lowest hemoglobin was 9.6. He did not require transfusion. EGD showed esophagitis at 36 to 38 cm from the incisors. There were 4 oozing gastric ulcers which were treated with a heat probe. There were 2 additional linear ulcers that did not require coagulation. BX was negative for H. Pylori. 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 Post EGD Afsaneh was NPO for 24 hours and was treated for 5 additional days with IV Protonix BID. HGB was stable for several days and there were no more melanotic stools and Eliquis was restarted. A few days after initiating the B12 supplementation Afsaneh was much more alert and his speech was more fluent. He had less difficulty with word finding. He did well in therapy and at the time of discharge he was supervision/set up for eating and standby assist for grooming. He was supervision/set up for upper body dressing and lower body dressing and required minimal assistance with bathing. He is contact-guard assist for toilet transfer and tub/shower transfer. He had ambulated 165 feet with a front wheeled walker at contact-guard assist and was able to ascend/descend 8 standard steps with 2 handrails at contact-guard assist. Afsaneh was not ready to go home at the time of DC from rehab and he was agreeable to transitioning to TCU for additional rehab prior to going home. When he is discharged from TCU he will follow up with Dr. Riojas, neurology and Dr. Boone. He will need a recheck on the B12 level in 1 month. He also plans on following up with Dr. Alvares from vascular surgery regarding the carotid stenosis. Physical Exam Const alert and no apparent distress Constitutional Narrative: Making better eye contact today. More alert today and speech is more fluid. General Appearance: cooperative and comfortable HEENT normocephalic and head/scalp atraumatic Eyes EOMs intact bilaterally Neck no lymphadenopathy, supple, no JVD and no carotid bruits General: trachea midline Lymph Lymphatic: no lymphadenopathy noted and no lymphedema noted Resp normal respiratory effort, normal air movement and no use of accessory muscles Resp Narrative: Coarse crackles in the right base persistently . Do not resolve with a few deep breaths. Effort and Inspection: Negative for tachypneic or labored Cardio no murmurs, no rub and no gallops Cardio Narrative: Irregular irregular rhythm with controlled ventricular response. GI normal to inspection, nondistended, normoactive bowel sounds, soft to palpation, non-tender and non-distended GI Narrative: no guarding with palpation Extremity no clubbing, cyanosis or edema and no calf tenderness General Extremity: Negative for clubbing, cyanosis or edema Skin no rashes or lesions noted, no wounds and no jaundice General Skin Exam: no breakdown and dry skin Rashes: no rashes Wounds: Negative for wounds noted Neuro CN's II-XII intact bilaterally and no focal motor deficits Neuro Narrative: He has generalized weakness. He is more alert since the B12 supplementation has started. He makes better eye contact when talking with me now and his speech is more fluid. Sensorium / Orientation: alert Coordination / Balance: [id number] test normal and [id number] test normal Motor Exam: general weakness Psych cooperative, denies homicidal ideation and denies suicidal ideation Psych Narrative: Does not look at me when talking. Appearance: appropriate Mood & Affect: flat affect Medical Records Data Medical Nutrition Assessment Dietitian: Malnutrition Criteria Met Start: 12/23/22 13:09 Freq: Status: Active Protocol: Document 12/29/22 10:45 RMA (Rec: 12/29/22 10:45 RMA [id number]) Nutrition Malnutrition Evidence of Malnutrition Exists Yes Malnutrition (severe): Acute Illness/Injury Evidenced By Suboptimal Energy Intake ( Severe),Weight Loss (Severe), Physical Changes (Moderate) Clinical Problem Acute Disease or Injury Related Malnutrition Etiology Severe protein-calorie malnutrition in the context of acute disease/stroke related to inadequate oral intake Signs/Symptoms as evidenced by ~14% wt loss x 2 weeks, PO meeting less than 50% estimated nutrition needs and moderate muscle/fat wasting in the clavicle, face, orbitals, hands and legs Status Active Problem Recommendation Dietitian Recommendations/Changes Will liberalize diet to regular/no added salt due to signs/symptoms of malnutrition ; consistency/texture as per PARTS COORDINATOR. Will continue 120ml ensure plus high protein 4 times per day w/ medpass. Will continue magic cup w/ lunch Q day as tolerated. Adjust ONS as needed. Trend weight closely. Weight / BMI Weight Weight: 146 lb 2.664 oz Body Mass Index (BMI) 19.8 ABG / Lab / Microbiology Data Result Diagrams: 01/03/23 06:58 01/03/23 06:58 Microbiology: Microbiology 01/04/23 06:45 Nasal Secretion SARS-CoV-2 Antigen (Rapid) - Final 12/24/22 07:45 Stool Stool Occult Blood (POPPY) - Final Occult Blood Positive Indicators for Scoring Admitted with or Primary Diagnosis of CVA/Stroke: Yes Hx of CVA/Stroke: Yes Modified [place] Score MRS Score at time of Evaluation: 5-Severe disability (Unable to ambulate due to severe BL knee pain. He has been getting Synvisc every 6 months for 15 years and he is due for his injections. He is seen at [facility] orth[facility]ics for the injections. ) NIHSS NIHSS 1a. Level of Consciousness: Alert; keenly responsive 1b. LOC Questions: Answers BOTH questions correctly. 1c. LOC Commands: Performs both tasks correctly. 2. Best Gaze: Normal 3. Visual: No visual loss 4. Facial Palsy: Normal symmetrical movements 5a. Left Arm: No drift; arm holds 90 (or 45) degrees for full 10 seconds 5b. Right Arm: No drift; arm holds 90 (or 45) degrees for full 10 seconds 6a. Left Leg: No drift; leg holds 30-degree position for full 5 seconds 6b. Right Leg: No drift; leg holds 30-degree position for full 5 seconds 7. Limb Ataxia: Absent 8. Sensory: Normal; no sensory loss 9. Best Language: No aphasia; normal 10. Dysarthria: Normal 11. Extinction and Inattention: No abnormality Total: 0 Stroke Questions Stroke Team Activated: No D/C Instructions Please Follow Up With: Friend,Jean-Pierre, DO Meaningful Use Info Meaningful Use Diagnoses (Choose all that apply): Ischemic CVA CVA Therapy Assessed for PT,OT and/or ST?: Yes Ischemic Stroke Antithrombotic order at d/c?: Yes Dx of Atrial fib/flutter?: Yes Anticoagulant at discharge?: Yes Statins at discharge?: Yes Primary Dx Acute Ischemic CVA?: Yes IV tPA ordered during stay?: No Reason IV t-PA not ordered: Treatment not Indicated (TPA was given in the ED at the time of worseing of neurologic sx. He is now in acute rehab. ) Discharge Plan Admission Admit Date/Time: 12/22/22 12:43 Primary Reason for Your Visit: Post stroke debility Attending Provider: Eliana Dumont Primary Care Provider: Attila Riojas Consulting Providers: Jean-Pierre Boone Instructions Additional Instructions / Restrictions: 1. Your PCP may want to check you for intrinsic factor deficiency. Intrinsic Factor (IF) is produced in the gastrointestinal tract and it is necessary to be able to absorb B12 into your body. B12 deficiency can cause anemia, dementia, numbness in the hands and feet, dysequilibrium, anorexia, tiredness and difficulty with walking. You have severe B12 deficiency and because you have cognitive dysfunction it is appropriate to treat you with large doses of intramuscular B12. Some people are able to take B12 orally and patients with a IF deficiency must take it IM (intramuscular). 2. You will need to follow-up with a neurologist following discharge from transitional care because of the stroke. The neurologist will also address the cognitive dysfunction and the B12 deficiency. 3. I will send copies of your discharge summary to Dr. Riojas, Dr. Boone and the neurologist that you choose to follow with. 4. If you have any questions following discharge from rehab please do not hesitate to call me. Office: [phone] Discharge Orders/Prescriptions Prescriptions: New acetaminophen 500 mg Tablet 1,000 mg PO Q6H PRN PRN (Reason: Pain 1-10 Or Fever) Qty: 0 0RF magnesium hydroxide 400 mg/5 mL Suspension 30 ml PO .PRN X 1 PRN (Reason: Constipation) Qty: 0 0RF Continued losartan 50 mg Tablet 50 mg PO DAILY atorvastatin 40 mg Tablet 40 mg PO QHS metoprolol tartrate 100 mg Tablet 100 mg PO DAILY@2200 metoprolol tartrate 50 mg Tablet 50 mg PO DAILY apixaban 5 mg Tablet 5 mg PO BID Discontinued hydroxyzine HCl 25 mg Tablet 12.5 mg PO TID PRN (Reason: Anxiety) No Action sennosides-docusate sodium [Stool Softener-Stimulant Laxat] 8.6-50 mg tablet 2 tab PO BID cyanocobalamin (vitamin B-12) 1,000 mcg/mL solution 1,000 mcg IM DAILY mirtazapine 15 mg tablet 7.5 mg PO QHS nystatin [Nyamyc] 100,000 unit/gram powder 1 applic topical TID Protocol: *Topical Application Instructions APPLICATION INSTRUCTIONS: Apply to umbilicus. Ensure Plus High Protein 0.08 gram-1.5 kcal/mL liquid 120 ml PO 4X/DAY Referrals / Follow Up: Carley Edouard [Other] - 02/13/23 10:45 am (neuro outpatient surgery ) FriendJean-Pierre DO [Med Staff - Active Staff] - Attila Riojas MD [Primary Care Provider] - Disposition Disposition (needs filled in before D/C Order can be placed): Jail Facility Charges/Coding Visit Charges Inpatient E&M: 44867 Disch Hosp >30min
== END 2023-01-04 13:42 | disposition skilled nursing facility (03) | DRG 56 ==
PROVIDERS: Internal Medicine Gastroenterology; Admitting Provider Internal Medicine; PCP Family Medicine; Visit Provider Internal Medicine
PROC: 0DJ08ZZ Inspection of Upper Intestinal Tract, Via Natural or Artificial Opening Endoscopic (ICD-10-PCS; CPT 43235; principal; 2022-12-25 13:25)
DX: I69.354 Hemiplegia and hemiparesis following cerebral infarction affecting left non-dominant side (principal); E43 Unspecified severe protein-calorie malnutrition; K25.4 Chronic or unspecified gastric ulcer with hemorrhage; I48.19 Other persistent atrial fibrillation; Z68.1 Body mass index [BMI] 19.9 or less, adult; I95.9 Hypotension, unspecified; K20.80 Other esophagitis without bleeding; I10 Essential (primary) hypertension; K29.40 Chronic atrophic gastritis without bleeding; E53.8 Deficiency of other specified B group vitamins; I69.322 Dysarthria following cerebral infarction; I69.392 Facial weakness following cerebral infarction; I69.328 Other speech and language deficits following cerebral infarction; F09 Unspecified mental disorder due to known physiological condition; M48.56XD Collapsed vertebra, not elsewhere classified, lumbar region, subsequent encounter for fracture with routine healing; Z79.01 Long term (current) use of anticoagulants; F32.A Depression, unspecified; Z79.899 Other long term (current) drug therapy; R63.4 Abnormal weight loss
CPT/HCPCS: 36415; 74230; 80048; 80053; 81001; 82274; 82607; 82746; 82962; 83735; 84100; 84439; 84443; 85014; 85018; 85027; 86850; 86900; 86901; 87811; 88305; 88313; 88342; 92507; 92523; 92526; 92610; 92611; 94668; 97110; 97112; 97116; 97162; 97166; 97530; 97535; 97802; 97803; 99252; J7030; J7040; J7120; A4216; G0463; J2405; J3420

== ENCOUNTER 2023-01-04 13:40 | Inpatient (IN) | payer MEDICARE, BC, SELFPAY ==
[2023-01-04 13:56] VITALS: BP 114/95; PULSE 100; RESP 20; TEMP 37.2; O2SAT 95
[2023-01-04 14:04] VITALS: BMI 19.8
[2023-01-04 14:39] VITALS: BMI 19.8
--- NOTE | 2023-01-04 15:19 | HP.PCM_ITS ---
HPI - General General Date of Admission: 01/04/23 Date of Service: 01/05/23 Chief Complaint: Here for rehabilitation. HPI Narrative 12/10/2022 AFSANEH AMADO, is a 87 Male who presents to [facility] [place] Emergency Department with left sided weakness, facial droop, slurred speech. CT head okay. CTA head/neck negative for large vessel occlusion. IV TPA given. Repeat CT head negative for bleeding. Diltiazem 20mg IV given for atrial fibrillation with rapid ventricular response. Transfer to [facility]. MRI brain showed small right frontal infarct Anticoagulate with coumadin, heparin bridge, Eliquis unaffordable to patient/family. Aspirin, Statin continued. 12/22/2022 Admit to RU. PT/OT/STAriel Leal for atrial fibrillation. Reglan 2.5mg tidac for nausea. 12/24/2022 Heme positive black melanotic stool. Pantoprazole 40mg iv q12h, consult Dr. Boone, Hold Eliquis. 12/25/2022 Dr. Boone EGD oozing gastric ulcers treated with heater probe. 12/26/2022 Hold Eliquis for UGIB. 12/29/2022 Remeron 7.5mg to improve mood, appetite. 12/30/2022 IM B12 for B12 deficiency, B12 level less than 100. 01/01/[address] Mely Leal agreeable. 01/04/2023 Admit to TCU with debility, here for rehabilitation, strengthening, prior to discharge home with . [facility] Medical History Afib Chronic anticoagulation HTN (hypertension) Stroke/cerebrovascular accident Home Medications apixaban 5 mg tablet 5 mg PO BID blood thinner 12/22/22 [History Last Taken Unknown] atorvastatin 40 mg tablet 40 mg PO QHS reduce cholesterol 12/22/22 [History Last Taken Unknown] losartan 50 mg tablet 50 mg PO DAILY bp 12/22/22 [History Last Taken Unknown] metoprolol tartrate 100 mg tablet 100 mg PO DAILY@2200 bp 12/22/22 [History Last Taken Unknown] metoprolol tartrate 50 mg tablet 50 mg PO DAILY bp 12/22/22 [History Last Taken Unknown] acetaminophen 500 mg tablet 1,000 mg PO Q6H PRN PRN Pain 1-10 Or Fever #0 tabs 01/04/23 [Rx Last Taken Unknown] cyanocobalamin (vitamin B-12) 1,000 mcg/mL injection solution 1,000 mcg IM DAILY B12 Deficiency 01/04/23 [History Last Taken Unknown] food supplemt, lactose-reduced 0.08 gram-1.5 kcal/mL oral liquid (Ensure Plus High Protein) 120 ml PO 4X/DAY Supplement 01/04/23 [History Last Taken Unknown] magnesium hydroxide 400 mg/5 mL oral suspension 30 ml PO .PRN X 1 PRN Constipation #0 mL 01/04/23 [Rx Last Taken Unknown] mirtazapine 15 mg tablet 7.5 mg PO QHS Mood 01/04/23 [History Last Taken Unknown] nystatin 100,000 unit/gram topical powder (Nyamyc) 1 applic topical TID Skin 01/04/23 [History Last Taken Unknown] sennosides 8.6 mg-docusate sodium 50 mg tablet (Stool Softener-Stimulant Laxative) 2 tab PO BID Constipation 01/04/23 [History Last Taken Unknown] Allergy/AdvReac Type Severity Reaction Status Date / Time No Known Allergies Allergy Verified 12/10/22 19:01 Family History Father Mental health problem His father and some of his brothers committed suicide. Pt tells me mental health problems go deep in the family. in his late 50's Mother Cancer She at the age of 68 from a cancer that was in her abdomen. 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 Smoking Status: Never smoker alcohol intake: never substance use type: does not use ROS Constitutional Constitutional: Denies chills, fever(s) or weight gain ENT HEENT: Denies headache(s), nasal congestion or nasal discharge Cardiovascular Cardiovascular: Denies chest pain or palpitations Respiratory/Chest Respiratory/Chest: Denies cough, excessive phlegm production or shortness of breath with exertion Gastrointestinal Gastrointestinal: Denies abdominal pain, nausea or vomiting Genitourinary Genitourinary: Denies dysuria Musculoskeletal Musculoskeletal: Denies joint pain or joint swelling Integumentary Integumentary: Denies rash or wounds Neurologic Neurologic: Denies focal weakness, numbness or tingling Psychiatric Psychiatric: Denies anxiety, auditory hallucinations, depression, homicidal ideation or suicidal ideation Vital Signs Vital Signs Vital Signs: Weight Weight: 66.2 kg Body Mass Index (BMI) 19.8 Physical Exam Const alert General Appearance: cooperative HEENT normocephalic Eyes PERRL and EOMs intact bilaterally Neck supple, no JVD and no carotid bruits Resp normal respiratory effort, normal air movement and clear to auscultation bilaterally Cardio Cardio Narrative: Irregularly irregular GI normal to inspection, nondistended, normoactive bowel sounds, non-tender and non-distended Extremity normal capillary refill General Extremity: Negative for edema Skin no rashes or lesions noted General Skin Exam: no breakdown Neuro Neuro Narrative: Left hemiparesis. Psych affect normal Appearance: appropriate Results Lab / Micro Data Result Diagrams: 01/05/23 05:10 01/05/23 05:10 Assessment & Plan Assessment/Plan (1) Debility: (2) Stroke: (3) Left hemiparesis: (4) Upper gastrointestinal bleed: (5) Gastric ulcer: (6) Vitamin B12 deficiency: (7) Hypertension: (8) Atrial fibrillation: (9) Hyperlipidemia: PLAN: Plan 87 year old male with below past medical history hospitalized for right sided stroke, left hemiparesis, TPA given, complicated by Vitamin B12 deficiency, and UGIB from gastric ulcers, admitted from with debility, here for rehabilitation, strengthening, prior to discharge home with . * Debility - PT/OT. * Pain - Tylenol 1000mg q6h prn pain (1-10). * Bowel - senna/colace 2 tablets bid, MOM 30ml po x 1 prn. * Adult immunization - Administer pneumonia vaccine, covid19 vaccine, flu vaccine as appropriate. * DVT prophylaxis - Not necessary, on Eliquis. * Atrial fibrillation - Metoprolol 50mg qam, 100mg qhs, Eliquis 5mg bid. * Hyperlipidemia - Atorvastatin 40mg qhs. * Vitamin B12 deficiency - B12 1000mcg sc qweek. * Nutrition - Ensure 120ml 4x/day. * Hypertension - Metoprolol 50mg qam, 100mg qhs, Losartan 50mg daily. * Insomnia/depression/appetite loss - Mirtazapine 7.5mg qhs, stable use, GDR not recommended. * Tinea Corporis - Nystatin powder topical tid.
[2023-01-04] MEDS: Acetaminophen 500 MG Tablet 1000 MG PO (16:47)
[2023-01-04] MEDS: Senna/Docusate Sodium 1 Tablet 2 TABLET PO (16:48)
[2023-01-04] MEDS: APIXABAN 5 MG TABLET PO (16:48)
[2023-01-04] MEDS: Ensure Plus High Protein 120 ML LIQUID PO ×2 (16:49→19:53)
[2023-01-04] MEDS: Atorvastatin Calcium 40 MG Tablet PO (19:53)
[2023-01-04 19:54] VITALS: BP 106/67; PULSE 97
[2023-01-04] MEDS: Mirtazapine 15 MG Tablet 7.5 MG PO (19:54)
[2023-01-04] MEDS: Metoprolol Tartrate 100 MG Tablet PO (19:54)
[2023-01-04] MEDS: Nystatin Powder 15gm Bottle 1 APPLIC TOPICAL (20:00)
[2023-01-05] MEDS: Acetaminophen 500 MG Tablet 1000 MG PO ×3 (01:31→20:40)
[2023-01-05 05:29] LABS: Absolute Lymphocyte Count 0.89 X10^3/uL (0.83-4.51); Absolute Neutrophil Count 11.6 X10^3/uL (2.0-7.7); Basophil# 0.02 X10^3/uL; Basophil% 0.1 % (0-1); Eosinophil# 0.01 X10^3/uL; Eosinophils% 0.1 % (0-5); Hematocrit 30.5 % (40-54); Hemoglobin 10.2 g/dL (13.0-16.5); Lymphocyte # 0.89 X10^3/ul (0.83-4.51); Lymphocyte % 6.1 % (19-41); Mean Corp Hgb Conc 33.4 g/dL (32-36); Mean Corpuscular Hgb 34.1 pg (27.0-32.0); Mean Platelet Vol. 9.1 fl (6.2-12.0); Monocyte# 2.03 X10^3/uL; NRBC Flagged by Analyzer 0 % (0-5); Neutrophil # 11.55 X10^3/uL (2.7-7.7); Neutrophil % 79.4 % (47-70); POSITIVE DIFFERENTIAL YES; Platelet Count 311 K/mm3 (150-450); RBC Distribution Width CV 17.2 % (11.6-14.6); RBC Distribution Width SD 63.6 fl (35.1-43.9); Red Blood Count 2.99 M/mm3 (4.6-6.2); White Blood Count 14.6 K/mm3 (4.4-11.0)
[2023-01-05 05:34] LABS: Differential Indicated SCAN CRITERIA MET
[2023-01-05 05:57] LABS: Anion Gap 5 (5-15); BUN 30 mg/dL (7-18); BUN/Creat Ratio 25.9 RATIO (10-20); Calcium,Total 8.7 mg/dL (8.5-10.1); Chloride 109 mmol/L (98-107); Creatinine, Serum 1.16 mg/dL (0.70-1.30); EST Glomerular Filtration Rate 64 mL/min (>60); Est Glom Filt Rate - Afr Amer 77 mL/min (>60); Estimated Creatinine Clearance 43.59 ml/min; Glucose 104 mg/dL (74-106); Potassium 3.9 mmol/L (3.5-5.1); Sodium Level 142 mmol/L (136-145)
[2023-01-05] MEDS: Ensure Plus High Protein 120 ML LIQUID PO ×3 (06:26→17:44)
[2023-01-05] MEDS: Senna/Docusate Sodium 1 Tablet 2 TABLET PO ×2 (06:26→17:46)
[2023-01-05 06:27] VITALS: BP 110/59; PULSE 101
[2023-01-05] MEDS: Metoprolol Tartrate 50 MG Tablet PO (06:27)
[2023-01-05] MEDS: APIXABAN 5 MG TABLET PO ×2 (06:27→17:46)
[2023-01-05] MEDS: Losartan Potassium 50 MG Tablet PO (06:27)
[2023-01-05] MEDS: Cyanocobalamin (B12) 1,000 MCG/ML Vial 1000 MCG IM (06:28)
[2023-01-05 06:36] LABS: Differential Comment SCANNED
[2023-01-05] MEDS: Nystatin Powder 15gm Bottle 1 APPLIC TOPICAL ×3 (06:36→20:51)
--- NOTE | 2023-01-05 07:53 | RAD_ITS ---
STUDY: X-RAY - LEFT KNEE REASON FOR EXAM: Male, 87 years old. Pain. No known injury. TECHNIQUE: 2 view(s) of the knee. COMPARISON: None. FINDINGS: Normal visualized distal femur. Old avulsion fracture of the anterior tibial tuberosity. Normal proximal tibiofibular articulation. There is moderate degenerative arthrosis of the medial femorotibial compartment with moderate joint space narrowing. Normal lateral femorotibial compartment. Normal patellofemoral articulation. Joint effusion. 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 RAD/Knee 1 or 2 Views IMPRESSION: Degenerative arthrosis. Joint effusion. Periarticular calcification. This is suggestive of synovial osteochondromatosis. Electronically Signed: Patric Galvez MD at 12:11 EST ,
--- NOTE | 2023-01-05 07:56 | RAD_ITS ---
STUDY: X-RAY - RIGHT KNEE REASON FOR EXAM: Male, 87 years old. PAIN TECHNIQUE: 2 view(s) of the knee. COMPARISON: None. FINDINGS: Normal visualized distal femur. Normal visualized proximal tibia and fibula. Normal proximal tibiofibular articulation. There is severe degenerative arthrosis of the medial femorotibial compartment with severe joint space narrowing. Normal lateral femorotibial compartment. There is severe degenerative arthrosis of the patellofemoral articulation. Small joint effusion. Calcification of the medial and lateral menisci suggestive of chondrocalcinosis. RAD/Knee 1 or 2 Views IMPRESSION: Degenerative arthrosis. Joint effusion. Findings suggestive of chondrocalcinosis. Electronically Signed: Patric Galvez MD at 12:11 EST ,
[2023-01-05] MEDS: traMADol 50 MG Tablet PO ×2 (08:53→20:41)
--- NOTE | 2023-01-05 10:47 | NURSING ---
Resident drowsy and unable to address COVID Vaccine at this time.
--- NOTE | 2023-01-05 11:30 | NURSING ---
PT CAME IN TO SEE PT. ASKED IF SHE WOULD LIKE HER TO HAVE THE COVID BOOSTER. STATED NO! TALHA DING AWARE.
--- NOTE | 2023-01-05 12:07 | NURSING ---
Masonry Teacher Note; Activity Asset: Complete Girish prefers to stay in his room and spend time w/family and friends till he feels better. Family visits daily and asked for him to have the newspaper if posable, or they will bring it to him. He prefers to watch TV, read and rests they stated.
--- NOTE | 2023-01-05 13:39 | NURSING ---
AND DAUGHTER UPDATED ON PT.
--- NOTE | 2023-01-05 13:46 | NURSING ---
Addendum entered by Riki Washington 01/05/23 14:55: [facility] OFFICE CALLED BACK AND STATED PT HAS NOT HAD ANY PNEUMONIA SHOTS. ORDER PLACED. Original Note: CALLED OFFICE FOR UPDATE ON PNEUMONIA SHOTS ON PT. LEFT MESSAGE.
[2023-01-05 14:00] VITALS: BP 98/60; PULSE 89; RESP 18; TEMP 36.4; O2SAT 94
[2023-01-05] MEDS: Arthritis Pain Compound 60 CLICK TUBE TOPICAL ×2 (14:03→17:54)
[2023-01-05] MEDS: Tuberculin,Purif.prot.deriv. 50 TU/ML Vial 0.1 ML ID (14:05)
[2023-01-05 14:30] LABS: Pathologist Review Reviewed
--- NOTE | 2023-01-05 16:13 | CHAPLAIN ---
Type of Pastoral Visit ___ Initial Visit ___ Follow-up Visit ___ On-call Visit ___ General Patient Visit ___ Spiritual Assessment ___ Family Conference ___ Bereavement ___ Rapid Response ___ Code Blue ___ Other (describe below) Pastoral Care Referral From ___ Patient ___ Family ___ Nurse ___ Physician ___ Payment Poster ___ Preform Machine Operator ___ Other (describe below) Sacrament/Intervention ___ Active listening ___ Anointing ___ Rastafarian ___ Bereavement ___ Communion ___ Natalia exploration ___ ___ Life review ___ Prayer ___ Reconciliation ___ Sacrament of Sick ___ Supportive presence ___ Wedding ___ Other (describe below) Pastoral Comments patient was sleeping and this compressed gas tester left the room
[2023-01-05] MEDS: MethylPREDNISolone DosePak 4 MG BOX PO ×2 (17:45→20:39)
[2023-01-05] MEDS: Atorvastatin Calcium 40 MG Tablet PO (20:36)
[2023-01-05] MEDS: Mirtazapine 15 MG Tablet 7.5 MG PO (20:40)
[2023-01-05 21:00] VITALS: O2SAT 94
[2023-01-06] MEDS: oxyCODONE 5 MG Tablet 2.5 MG PO (00:38)
[2023-01-06 01:01] LABS: Bedside Glucose 169 mg/dL (74-106)
[2023-01-06 01:05] VITALS: BP 156/88; PULSE 154; RESP 20; TEMP 36.9; O2SAT 99
--- NOTE | 2023-01-06 01:22 | RAD_ITS ---
EXAM: XR CHEST, 2 VIEWS CLINICAL INDICATION: Possible aspiration,fine crackles post. lower lung Possible aspiration,fine crackles post. lower lung TECHNIQUE: Frontal and lateral views of the chest. This report was created using [email or web address] report generation technology. COMPARISON: None. FINDINGS: LUNGS AND PLEURAL SPACES: There is mild relative elevation left hemidiaphragm with overlying left posterior basilar atelectasis. No pneumothorax. No effusion. HEART: The heart is enlarged. MEDIASTINUM: Central airways and mediastinal contour are unremarkable. BONES/JOINTS: There are multilevel degenerative changes in the visualized spine. There is a right shoulder prosthesis. SOFT TISSUES: Unremarkable. RAD/Chest PA and Lateral IMPRESSION: 1. Left posterior basilar atelectasis. Early lower lobe infiltrate is not excluded. 2. Mild cardiomegaly. Electronically Signed: Truman Javier MD at 2:51 EST Reading Location ID and State: [facility] / [place] , Service support ,
--- NOTE | 2023-01-06 01:33 | NURSING ---
Addendum entered by Saida Lyn 01/06/23 01:44: N.O. for 1x dose of Metoprolol 100mg and chest X-ray. Also parameters added to rt. Metoprolol doses. Original Note: This nurse updated Dr. Johnson on EKG results and emesis earlier this shift.
[2023-01-06 02:15] VITALS: PULSE 120
[2023-01-06] MEDS: Metoprolol Tartrate 25 MG Tablet 100 MG PO (02:15)
[2023-01-06] MEDS: Pantoprazole Sodium 40 MG Tablet PO (06:40)
[2023-01-06] MEDS: Levothyroxine 25 MCG TABLET PO (06:40)
[2023-01-06] MEDS: APIXABAN 5 MG TABLET PO ×2 (06:40→17:45)
[2023-01-06] MEDS: Cyanocobalamin (B12) 1,000 MCG/ML Vial 1000 MCG SC (06:40)
[2023-01-06 06:42] VITALS: BP 129/79; PULSE 76
[2023-01-06] MEDS: Losartan Potassium 50 MG Tablet PO (06:42)
[2023-01-06] MEDS: Metoprolol Tartrate 50 MG Tablet PO (06:42)
[2023-01-06] MEDS: Nystatin Powder 15gm Bottle 1 APPLIC TOPICAL ×3 (06:43→21:21)
[2023-01-06] MEDS: Senna/Docusate Sodium 1 Tablet 2 TABLET PO ×2 (06:43→17:45)
[2023-01-06] MEDS: Arthritis Pain Compound 60 CLICK TUBE TOPICAL ×2 (06:46→17:40)
[2023-01-06] MEDS: MethylPREDNISolone DosePak 4 MG BOX PO ×4 (07:54→21:22)
[2023-01-06] MEDS: Ensure Plus High Protein 120 ML LIQUID PO ×4 (07:58→21:21)
[2023-01-06 09:42] VITALS: BMI 19.8
[2023-01-06] MEDS: levoFLOXacin 750 MG Tablet PO (10:04)
[2023-01-06] MEDS: Pneumococcal Vaccine 20 Valent 0.5 ML Syringe IM (10:11)
--- NOTE | 2023-01-06 10:14 | NURSING ---
PT UP IN RECLINER. STATED HE HAD NO PAIN AT THIS TIME. ATE A GOOD BREAKFAST. PREVNAR 20 GIVEN IN LEFT DELT. PT TOLERATED WELL. WILL CONTINUE TO MONITOR.
[2023-01-06 13:50] VITALS: PULSE 61; RESP 18; O2SAT 96
[2023-01-06 14:00] VITALS: BP 132/52; PULSE 56; RESP 16; TEMP 36.1; O2SAT 90
[2023-01-06] MEDS: traMADol 50 MG Tablet PO (14:03)
[2023-01-06] MEDS: Ondansetron ODT 4 MG Tablet PO (14:09)
--- NOTE | 2023-01-06 15:52 | CASEMGMT ---
Social Work Received call from Lopez HUTTON, to discuss ELOS, insurance coverage, potential DC recommendations. SW answered questions and educated to POC mtg tomorrow. BRENNEN and dtr plan to attend via conference call. SW advised the main topic is DC plans as IDT is recommending 24/7 care. BRENNEN requested resources for community living and SNF and AL options. SW explained all options. BRENNEN provided email. Secure email sent with all information, including SNF list via [facility] Guide Link. BRENNEN expressed appreciation for ongoing assistance. SW to continue to follow. Judy Del Rosario, CONTINUING EDUCATION INSTRUCTOR FLOORWORKER
[2023-01-06] MEDS: Menthol/Lanolin/Calamine/Znox 113 GM Tube 1 APPLIC TOPICAL (17:44)
[2023-01-06] MEDS: Mirtazapine 15 MG Tablet 7.5 MG PO (21:21)
[2023-01-06 21:22] VITALS: PULSE 82
[2023-01-06] MEDS: Atorvastatin Calcium 40 MG Tablet PO (21:22)
[2023-01-06] MEDS: Metoprolol Tartrate 100 MG Tablet PO (21:22)
[2023-01-07 05:07] VITALS: BP 114/82; PULSE 86
[2023-01-07] MEDS: Metoprolol Tartrate 50 MG Tablet PO (05:07)
[2023-01-07] MEDS: Pantoprazole Sodium 40 MG Tablet PO (05:07)
[2023-01-07] MEDS: APIXABAN 5 MG TABLET PO ×2 (05:07→17:01)
[2023-01-07] MEDS: Losartan Potassium 50 MG Tablet PO (05:07)
[2023-01-07] MEDS: Menthol/Lanolin/Calamine/Znox 113 GM Tube 1 APPLIC TOPICAL ×2 (05:07→17:00)
[2023-01-07] MEDS: Senna/Docusate Sodium 1 Tablet 2 TABLET PO ×2 (05:08→17:01)
[2023-01-07] MEDS: Levothyroxine 25 MCG TABLET PO (05:08)
[2023-01-07] MEDS: Arthritis Pain Compound 60 CLICK TUBE TOPICAL ×2 (05:08→17:00)
[2023-01-07] MEDS: Ensure Plus High Protein 120 ML LIQUID PO ×4 (05:09→20:23)
[2023-01-07] MEDS: Nystatin Powder 15gm Bottle 1 APPLIC TOPICAL ×3 (05:09→20:24)
[2023-01-07] MEDS: MethylPREDNISolone DosePak 4 MG BOX PO ×4 (08:26→20:23)
--- NOTE | 2023-01-07 10:48 | CASEMGMT ---
Social Work IDT met with patient, , dtr, then dtr via conference call for care plan meeting. Discussed patient's progress in PT/OT/ST/SN. Educated to Medicare benefit. Encouraged to contact secondary insurance to ensure copay coverage. IDT expressed concern with pt returning home with without additional assistance. cannot physically assist pt and pt requires 24/7 care. Unsure how pt will improve. SW offered resources for nonskilled DIRECTOR OPERATING ROOM or AL/SNF. Encouraged family to brainstorm options and SW to assist. Will continue to follow. Judy Del Rosario, FELIZ QUARRY SUPERVISOR DIMENSION STONE
--- NOTE | 2023-01-07 11:22 | PHA.CONS_ITS ---
TCU RX Drug Regimen Review Subjective: TCU Admission. 87 YOM presented to the ER with left sided weakness, facial droop and slurred speech. Transferred to [facility] and hospitalized for right sided stroke, left hemiparesis, TPA given, complicated by Vitamin B12 deficiency, and UGIB from gastric ulcers, admitted from with debility. Admitted to TCU with debility for strengthening and rehabilitation. Objective: Allergies No Known Allergies Allergy (Verified 12/10/22 19:01) Current Medications Generic Name Dose Route Start Last Admin Trade Name Freq PRN Reason Stop Dose Admin Acetaminophen 1,000 mg 01/05/23 07:55 01/05/23 20:40 Acetaminophen 500 Mg Tablet PO 1,000 mg Q6H PRN PRN Administration Pain Score 1-3 Apixaban 5 mg 01/04/23 18:00 01/07/23 05:07 Apixaban 5 Mg Tablet PO 5 mg BID GINA Administration Atorvastatin Calcium 40 mg 01/04/23 22:00 01/06/23 21:22 Atorvastatin Calcium 40 Mg Tablet PO 40 mg QHS GINA Administration Calamine/Phenol 1 applic 01/06/23 18:00 01/07/23 05:07 Menthol/Lanolin/Calamine/Znox 113 Gm Tube TOPICAL 1 applic BID GINA Administration Protocol Compound Med 3 click 01/05/23 18:00 01/07/23 05:08 Arthritis Pain Compound 60 Click Tube TOPICAL 3 click BID GINA Administration Protocol Cyanocobalamin 1,000 mcg 01/06/23 06:00 01/06/23 06:40 Cyanocobalamin (B12) 1,000 Mcg/Ml Vial SC 1,000 mcg QWEEK GINA Administration Hydrocortisone 1 applic 01/06/23 17:23 Hydrocortisone 2.5% Crm TOPICAL BID PRN PRN RASH/TOPICAL IRRITATION Protocol Levofloxacin 750 mg 01/08/23 10:00 Levofloxacin 750 Mg Tablet PO 01/13/23 10:01 Q48 GINA Levothyroxine Sodium 25 mcg 01/06/23 06:00 01/07/23 05:08 Levothyroxine 25 Mcg Tablet PO 25 mcg 0600 GINA Administration Losartan Potassium 50 mg 01/05/23 06:00 01/07/23 05:07 Losartan Potassium 50 Mg Tablet PO 50 mg DAILY GINA Administration Magnesium Hydroxide 30 ml 01/04/23 14:00 Magnesium Hydroxide 30 Ml Udc PO .PRN X 1 PRN Constipation Methylprednisolone 4 mg 01/05/23 17:00 01/07/23 08:26 Methylprednisolone Dosepak 4 Mg Box PO 01/10/23 08:59 4 mg 0800,1200,1700,2200 GINA Administration Taper Metoprolol Tartrate 50 mg 01/05/23 06:00 01/07/23 05:07 Metoprolol Tartrate 50 Mg Tablet PO 50 mg DAILY GINA Administration Metoprolol Tartrate 100 mg 01/04/23 22:00 01/06/23 21:22 Metoprolol Tartrate 100 Mg Tablet PO 100 mg QHS GINA Administration Mirtazapine 7.5 mg 01/04/23 22:00 01/06/23 21:21 Mirtazapine 15 Mg Tablet PO 7.5 mg QHS GINA Administration Nutritional Formula (Lactose Free) 120 ml 01/04/23 17:00 01/07/23 05:09 Ensure Plus High Protein 120 Ml Liquid PO 120 ml 4X/DAY GINA Administration Nystatin 1 applic 01/04/23 14:00 01/07/23 05:09 Nystatin Powder 15gm Bottle TOPICAL 1 applic TID GINA Administration Protocol Ondansetron HCl 4 mg 01/06/23 10:41 01/06/23 14:09 Ondansetron Odt 4 Mg Tablet PO 01/16/23 10:42 4 mg Q8H PRN PRN Administration NAUSEA/VOMITING Oxycodone HCl 2.5 mg 01/05/23 07:53 01/06/23 00:38 Oxycodone 5 Mg Tablet PO 2.5 mg Q4H PRN PRN Administration Pain Score 6-10 Pantoprazole Sodium 40 mg 01/06/23 06:00 01/07/23 05:07 Pantoprazole Sodium 40 Mg Tablet PO 40 mg DAILY GINA Administration Senna/Docusate Sodium 2 tablet 01/04/23 18:00 01/07/23 05:08 Senna/Docusate Sodium 1 Tablet PO 2 tablet BID GINA Administration Tramadol HCl 50 mg 01/05/23 07:53 01/06/23 14:03 Tramadol 50 Mg Tablet PO 50 mg Q6H PRN PRN Administration Pain Score 4-5 Tuberculin PPD 0.1 ml 01/12/23 10:00 Tuberculin,Purif.Prot.Deriv. 50 Tu/Ml Vial ID 01/12/23 10:01 X1 ONE Problem List (Last Updated 01/05/23 @ 09:[address] Eliana Sidhu, DO) Hyperlipidemia (Acute) Atrial fibrillation (Acute) Hypertension (Chronic) Vitamin B12 deficiency (Acute) Gastric ulcer (Acute) Upper gastrointestinal bleed (Acute) Left hemiparesis (Acute) Stroke (Acute) Debility (Acute) Vital Signs Temp Pulse Resp BP Pulse Ox O2 Del Method 96.9 F L 86 16 114/82 H 90 Room Air 01/06/23 14:00 01/07/23 05:07 01/06/23 14:00 01/07/23 05:07 01/06/23 14:00 01/06/23 14:00 Oxygen Delivery Method Room Air Weight: 66.497 kg Body Mass Index (BMI) 19.8 Sodium 142 mmol/L (136-145) 01/05/23 05:10 Potassium 3.9 mmol/L (3.5-5.1) 01/05/23 05:10 Chloride 109 mmol/L (98-107) H 01/05/23 05:10 Carbon Dioxide 28.0 mmol/L (21.0-32.0) 01/05/23 05:10 Anion Gap 5 (5-15) 01/05/23 05:10 BUN 30 mg/dL (7-18) H 01/05/23 05:10 Creatinine 1.16 mg/dL (0.70-1.30) 01/05/23 05:10 Est GFR (MDRD) Af Amer 77 mL/min (>60) 01/05/23 05:10 Est GFR (MDRD) Non-Af 64 mL/min (>60) 01/05/23 05:10 BUN/Creatinine Ratio 25.9 RATIO (10-20) H 01/05/23 05:10 Glucose 104 mg/dL (74-106) 01/05/23 05:10 Assessment/Plan: 1. Pain: acetaminophen 1000mg PO Q6H PRN pain 1-3, tramadol 50mg PO Q6H PRN pain 4-5, oxycodone 2.5mg PO Q4H PRN pain 6-10 and arthritis pain cream 3 clicks topical BID. Resident has had 2 doses of acetaminophen (pain 4,10 in the knee), 3 doses of tramadol (pain 4,5,10 in the knee) and 1 dose of oxycodone (7 for generalized pain). 2. Bowel: senna/docusate 2T PO BID and MOM 30mL PO x1 PRN constipation. Resident has not had any PRN doses. Please continue to monitor for constipation and PRN usage. Last documented bowel movement 01/06. 3. Pneumonia (based on chest x-ray): levofloxacin 750mg PO Q48 thru 01/13/23 and Medrol dose pack thru 01/10/23. Please continue to monitor for S/S of infection, glucose (last 169mg/dL), increased hunger, agitation, renal function, tendon pain (black box warning for tendonitis/tendon rupture) and diarrhea. 4. Atrial fibrillation/hypertension: metoprolol tartrate 50mg PO AM and 100mg PO PM, losartan 50mg PO daily and apixaban 5mg PO BID. Please continue to monitor BP (last 114/82), HR (last 86), renal function, potassium (last 3.9mmol/L), S/S of bleeding and hemoglobin (last 10.2g/dL). 5. Hyperlipidemia: atorvastatin 40mg PO QHS. Please consider ordering a lipid panel if clinically appropriate. There is no lipid panel in the chart. Thanks. Please continue to monitor LFTs (last 12/23/22) and muscle pain. 6. Hypothyroidism (based on TSH 9.73 uIU/mL on 12/23/22): levothyroxine 25mcg PO daily. Please consider ordering another TSH by 01/20/23 since levothyroxine is new. Thanks. Please continue to monitor for TSH and for S/S of hypo//hyperthyroidism. 7. Nausea: ondansetron 4mg PO Q8H PRN nausea/vomiting. Resident has used 1 dose so far. Please continue to monitor for nausea, vomiting and PRN usage. 8. Vitamin B12 deficiency: cyanocobalamin 1000mcg SC weekly. Please continue to monitor vitamin B12 levels (last 12/30/22). Assessment/Plan for indications treated with psychotropic medications: 1. Insomnia/depression/appetite loss: mirtazapine 7.5mg PO QHS. Please see physician note regarding GDR. Resident with unintentional weight loss since stroke per hyperbaric technologist note. Please continue to monitor suicidal ideation (black box warning), sodium (last 142mmol/L), excessive drowsiness and improved appetite. Medical chart and medication regimen reviewed. The following medication irregularities or issues were identified: *1. Atorvastatin 40mg PO QHS. Please consider ordering a lipid panel if clinically appropriate. There is no lipid panel in the chart. Thanks. *2. Levothyroxine 25mcg PO daily. Please consider ordering another TSH by 01/20/23 since levothyroxine is new. Thanks. Date of Note:: 01/07/23
[2023-01-07 14:00] VITALS: BP 123/70; PULSE 69; RESP 16; TEMP 36.2; O2SAT 97
--- NOTE | 2023-01-07 15:01 | CHAPLAIN ---
Type of Pastoral Visit ___ Initial Visit _x__ Follow-up Visit ___ On-call Visit ___ General Patient Visit ___ Spiritual Assessment ___ Family Conference ___ Bereavement ___ Rapid Response ___ Code Blue ___ Other (describe below) Pastoral Care Referral From _x__ Patient ___ Family ___ Nurse ___ Physician ___ Ciaio Counter Molder ___ Handle And Vent Machine Operator ___ Other (describe below) Sacrament/Intervention _x__ Active listening ___ Anointing ___ Religion ___ Bereavement ___ Communion ___ Natalia exploration ___ _x__ Life review _x__ Prayer ___ Reconciliation ___ Sacrament of Sick ___ Supportive presence ___ Wedding ___ Other (describe below) Pastoral Comments 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
[2023-01-07 20:23] VITALS: BP 120/76; PULSE 104
[2023-01-07] MEDS: Atorvastatin Calcium 40 MG Tablet PO (20:23)
[2023-01-07] MEDS: Metoprolol Tartrate 100 MG Tablet PO (20:23)
[2023-01-07] MEDS: Mirtazapine 15 MG Tablet 7.5 MG PO (20:24)
[2023-01-07 21:30] VITALS: PULSE 104; O2SAT 97
[2023-01-08] MEDS: Senna/Docusate Sodium 1 Tablet 2 TABLET PO (05:24)
[2023-01-08] MEDS: Losartan Potassium 50 MG Tablet PO (05:24)
[2023-01-08 05:25] VITALS: BP 116/74; PULSE 99
[2023-01-08] MEDS: APIXABAN 5 MG TABLET PO ×2 (05:25→17:05)
[2023-01-08] MEDS: Metoprolol Tartrate 50 MG Tablet PO (05:25)
[2023-01-08] MEDS: Levothyroxine 25 MCG TABLET PO (05:25)
[2023-01-08] MEDS: Pantoprazole Sodium 40 MG Tablet PO (05:25)
[2023-01-08] MEDS: Ensure Plus High Protein 120 ML LIQUID PO ×4 (05:36→20:20)
[2023-01-08] MEDS: Arthritis Pain Compound 60 CLICK TUBE TOPICAL ×2 (05:38→17:04)
[2023-01-08] MEDS: Nystatin Powder 15gm Bottle 1 APPLIC TOPICAL ×3 (05:39→20:23)
[2023-01-08] MEDS: Menthol/Lanolin/Calamine/Znox 113 GM Tube 1 APPLIC TOPICAL ×2 (05:39→17:05)
[2023-01-08] MEDS: MethylPREDNISolone DosePak 4 MG BOX PO ×3 (08:05→20:22)
[2023-01-08] MEDS: levoFLOXacin 750 MG Tablet PO (11:15)
[2023-01-08 14:00] VITALS: BP 103/69; PULSE 79; RESP 18; TEMP 36.7; O2SAT 96
[2023-01-08 20:21] VITALS: BP 95/57; PULSE 98
[2023-01-08] MEDS: Atorvastatin Calcium 40 MG Tablet PO (20:21)
[2023-01-08] MEDS: Metoprolol Tartrate 100 MG Tablet PO (20:21)
[2023-01-08] MEDS: Mirtazapine 15 MG Tablet 7.5 MG PO (20:22)
[2023-01-09] MEDS: Ensure Plus High Protein 120 ML LIQUID PO ×3 (05:17→17:27)
[2023-01-09] MEDS: Levothyroxine 25 MCG TABLET PO (05:18)
[2023-01-09] MEDS: Pantoprazole Sodium 40 MG Tablet PO (05:18)
[2023-01-09] MEDS: Senna/Docusate Sodium 1 Tablet 2 TABLET PO (05:18)
[2023-01-09 05:19] VITALS: BP 119/78; PULSE 94
[2023-01-09] MEDS: Losartan Potassium 50 MG Tablet PO (05:19)
[2023-01-09] MEDS: APIXABAN 5 MG TABLET PO ×2 (05:19→17:28)
[2023-01-09] MEDS: Metoprolol Tartrate 50 MG Tablet PO (05:19)
[2023-01-09] MEDS: Menthol/Lanolin/Calamine/Znox 113 GM Tube 1 APPLIC TOPICAL ×2 (05:20→17:28)
[2023-01-09] MEDS: Nystatin Powder 15gm Bottle 1 APPLIC TOPICAL ×3 (05:20→22:51)
[2023-01-09] MEDS: MethylPREDNISolone DosePak 4 MG BOX PO ×2 (07:56→22:48)
[2023-01-09] MEDS: Arthritis Pain Compound 60 CLICK TUBE TOPICAL ×2 (07:58→17:27)
--- NOTE | 2023-01-09 13:22 | MDS.RN ---
Pain interview for LEXIE 01/11/23 completed.
[2023-01-09 14:00] VITALS: BP 105/50; PULSE 67; RESP 14; TEMP 36.6; O2SAT 97
[2023-01-09] MEDS: Atorvastatin Calcium 40 MG Tablet PO (22:49)
[2023-01-09] MEDS: Mirtazapine 15 MG Tablet 7.5 MG PO (22:49)
[2023-01-09 22:50] VITALS: BP 138/74; PULSE 110
[2023-01-09] MEDS: Metoprolol Tartrate 100 MG Tablet PO (22:50)
[2023-01-10] MEDS: Senna/Docusate Sodium 1 Tablet 2 TABLET PO (04:48)
[2023-01-10 04:49] VITALS: BP 135/55; PULSE 82
[2023-01-10] MEDS: APIXABAN 5 MG TABLET PO ×2 (04:49→18:30)
[2023-01-10] MEDS: Metoprolol Tartrate 50 MG Tablet PO (04:49)
[2023-01-10] MEDS: Pantoprazole Sodium 40 MG Tablet PO (04:49)
[2023-01-10] MEDS: Losartan Potassium 50 MG Tablet PO (04:50)
[2023-01-10] MEDS: Levothyroxine 25 MCG TABLET PO (04:50)
[2023-01-10] MEDS: Menthol/Lanolin/Calamine/Znox 113 GM Tube 1 APPLIC TOPICAL ×2 (04:50→18:29)
[2023-01-10] MEDS: Arthritis Pain Compound 60 CLICK TUBE TOPICAL ×2 (04:51→18:29)
[2023-01-10] MEDS: Nystatin Powder 15gm Bottle 1 APPLIC TOPICAL ×3 (04:52→22:03)
[2023-01-10] MEDS: Ensure Plus High Protein 120 ML LIQUID PO ×3 (04:56→21:59)
[2023-01-10] MEDS: MethylPREDNISolone DosePak 4 MG BOX PO (08:06)
[2023-01-10] MEDS: levoFLOXacin 750 MG Tablet PO (08:07)
[2023-01-10 14:00] VITALS: BP 124/64; PULSE 68; RESP 16; TEMP 36.2; O2SAT 97
[2023-01-10 22:02] VITALS: BP 138/89; PULSE 85
[2023-01-10] MEDS: Mirtazapine 15 MG Tablet 7.5 MG PO (22:02)
[2023-01-10] MEDS: Metoprolol Tartrate 100 MG Tablet PO (22:02)
[2023-01-10] MEDS: Atorvastatin Calcium 40 MG Tablet PO (22:02)
[2023-01-11] MEDS: Nystatin Powder 15gm Bottle 1 APPLIC TOPICAL ×3 (05:17→21:09)
[2023-01-11] MEDS: Menthol/Lanolin/Calamine/Znox 113 GM Tube 1 APPLIC TOPICAL ×2 (05:18→17:13)
[2023-01-11] MEDS: Ensure Plus High Protein 120 ML LIQUID PO ×3 (05:19→17:09)
[2023-01-11] MEDS: Pantoprazole Sodium 40 MG Tablet PO (05:20)
[2023-01-11 05:21] VITALS: BP 113/73; PULSE 64
[2023-01-11] MEDS: Senna/Docusate Sodium 1 Tablet 2 TABLET PO ×2 (05:21→17:09)
[2023-01-11] MEDS: Metoprolol Tartrate 50 MG Tablet PO (05:21)
[2023-01-11] MEDS: Levothyroxine 25 MCG TABLET PO (05:21)
[2023-01-11] MEDS: Losartan Potassium 50 MG Tablet PO (05:21)
[2023-01-11] MEDS: APIXABAN 5 MG TABLET PO ×2 (05:21→17:09)
--- NOTE | 2023-01-11 05:25 | NURSING ---
Arthritis compound cream to be applied after bathing this am.
[2023-01-11] MEDS: Arthritis Pain Compound 60 CLICK TUBE TOPICAL ×2 (08:34→17:10)
[2023-01-11 14:00] VITALS: BP 99/56; PULSE 84; RESP 18; TEMP 36.2; O2SAT 97
[2023-01-11 21:00] VITALS: BP 115/69; PULSE 97
[2023-01-11] MEDS: Metoprolol Tartrate 100 MG Tablet PO (21:00)
[2023-01-11] MEDS: Mirtazapine 15 MG Tablet 7.5 MG PO (21:01)
[2023-01-11] MEDS: Atorvastatin Calcium 40 MG Tablet PO (21:01)
[2023-01-12] MEDS: Ensure Plus High Protein 120 ML LIQUID PO ×2 (05:26→20:49)
[2023-01-12] MEDS: Levothyroxine 25 MCG TABLET PO (05:27)
[2023-01-12] MEDS: Arthritis Pain Compound 60 CLICK TUBE TOPICAL ×2 (05:27→17:42)
[2023-01-12] MEDS: Pantoprazole Sodium 40 MG Tablet PO (05:27)
[2023-01-12] MEDS: Senna/Docusate Sodium 1 Tablet 2 TABLET PO ×2 (05:27→17:43)
[2023-01-12 05:29] LABS: Absolute Lymphocyte Count 1.92 X10^3/uL (0.83-4.51); Absolute Neutrophil Count 7.8 X10^3/uL (2.0-7.7); Basophil# 0.04 X10^3/uL; Basophil% 0.4 % (0-1); Eosinophil# 0.36 X10^3/uL; Eosinophils% 3.3 % (0-5); Hematocrit 34.1 % (40-54); Lymphocyte # 1.92 X10^3/ul (0.83-4.51); Lymphocyte % 17.5 % (19-41); Mean Corp Hgb Conc 32.3 g/dL (32-36); Mean Corpuscular Hgb 32.4 pg (27.0-32.0); Mean Corpuscular Volume 100.6 fL (80-94); Mean Platelet Vol. 8.7 fl (6.2-12.0); Monocyte# 0.81 X10^3/uL; Monocyte% 7.4 % (0-10); NRBC Flagged by Analyzer 0 % (0-5); Neutrophil # 7.77 X10^3/uL (2.7-7.7); Neutrophil % 70.7 % (47-70); Platelet Count 534 K/mm3 (150-450); RBC Distribution Width CV 17.1 % (11.6-14.6); RBC Distribution Width SD 62.5 fl (35.1-43.9); Red Blood Count 3.39 M/mm3 (4.6-6.2)
[2023-01-12] MEDS: APIXABAN 5 MG TABLET PO ×2 (05:29→17:43)
[2023-01-12 05:30] VITALS: BP 126/60; PULSE 79
[2023-01-12] MEDS: Nystatin Powder 15gm Bottle 1 APPLIC TOPICAL ×3 (05:30→20:52)
[2023-01-12] MEDS: Metoprolol Tartrate 50 MG Tablet PO (05:30)
[2023-01-12] MEDS: Losartan Potassium 50 MG Tablet PO (05:30)
[2023-01-12] MEDS: Menthol/Lanolin/Calamine/Znox 113 GM Tube 1 APPLIC TOPICAL ×2 (05:34→17:44)
[2023-01-12 05:58] LABS: Anion Gap 4 (5-15); BUN 41 mg/dL (7-18); Calcium,Total 8.5 mg/dL (8.5-10.1); Chloride 112 mmol/L (98-107); Creatinine, Serum 1.08 mg/dL (0.70-1.30); EST Glomerular Filtration Rate 69 mL/min (>60); Est Glom Filt Rate - Afr Amer 83 mL/min (>60); Estimated Creatinine Clearance 47.03 ml/min; Glucose 94 mg/dL (74-106); Potassium 4.1 mmol/L (3.5-5.1); Sodium Level 142 mmol/L (136-145)
--- NOTE | 2023-01-12 08:58 | NURSING ---
Manager Flight Note; MDS for 01/11/2023 Complete
[2023-01-12] MEDS: levoFLOXacin 750 MG Tablet PO (10:16)
[2023-01-12] MEDS: Tuberculin,Purif.prot.deriv. 50 TU/ML Vial 0.1 ML ID (10:16)
--- NOTE | 2023-01-12 11:12 | CASEMGMT ---
Social Work BIMS (10/23) and PHQ-9 (05/05) completed for MDS assessment. Judy Del Rosario MSW WATER RECLAMATION SYSTEMS OPERATOR
[2023-01-12] MEDS: Acetaminophen 500 MG Tablet 1000 MG PO (13:58)
[2023-01-12 14:00] VITALS: BP 103/54; PULSE 64; RESP 16; TEMP 36.1; O2SAT 97
[2023-01-12 20:49] VITALS: BP 92/61; PULSE 114
[2023-01-12] MEDS: Metoprolol Tartrate 100 MG Tablet PO (20:49)
[2023-01-12] MEDS: Mirtazapine 15 MG Tablet 7.5 MG PO (20:50)
[2023-01-12] MEDS: Atorvastatin Calcium 40 MG Tablet PO (20:50)
[2023-01-13] MEDS: Arthritis Pain Compound 60 CLICK TUBE TOPICAL ×2 (05:10→18:15)
[2023-01-13] MEDS: Pantoprazole Sodium 40 MG Tablet PO (05:10)
[2023-01-13 05:11] VITALS: BP 124/84; PULSE 91
[2023-01-13] MEDS: APIXABAN 5 MG TABLET PO ×2 (05:11→18:16)
[2023-01-13] MEDS: Losartan Potassium 50 MG Tablet PO (05:11)
[2023-01-13] MEDS: Metoprolol Tartrate 50 MG Tablet PO (05:11)
[2023-01-13] MEDS: Senna/Docusate Sodium 1 Tablet 2 TABLET PO (05:11)
[2023-01-13] MEDS: Levothyroxine 25 MCG TABLET PO (05:11)
[2023-01-13] MEDS: Cyanocobalamin (B12) 1,000 MCG/ML Vial 1000 MCG SC (05:12)
[2023-01-13] MEDS: Ensure Plus High Protein 120 ML LIQUID PO ×4 (05:20→21:48)
[2023-01-13] MEDS: Menthol/Lanolin/Calamine/Znox 113 GM Tube 1 APPLIC TOPICAL ×2 (05:24→18:17)
[2023-01-13] MEDS: Nystatin Powder 15gm Bottle 1 APPLIC TOPICAL ×3 (05:24→21:48)
[2023-01-13] MEDS: traMADol 50 MG Tablet PO (12:38)
[2023-01-13 14:00] VITALS: BP 99/48; PULSE 78; RESP 20; TEMP 36.2; O2SAT 97
[2023-01-13 14:10] VITALS: BMI 19.1
[2023-01-13] MEDS: Hydrocortisone 2.5% Crm 1 APPLIC TOPICAL (14:20)
[2023-01-13] MEDS: Mirtazapine 15 MG Tablet 7.5 MG PO (21:48)
[2023-01-13 21:49] VITALS: BP 112/78; PULSE 74
[2023-01-13] MEDS: Atorvastatin Calcium 40 MG Tablet PO (21:49)
[2023-01-13] MEDS: Metoprolol Tartrate 100 MG Tablet PO (21:49)
[2023-01-14] MEDS: Arthritis Pain Compound 60 CLICK TUBE TOPICAL ×2 (07:23→17:25)
[2023-01-14 07:24] VITALS: BP 118/70; PULSE 76
[2023-01-14] MEDS: Senna/Docusate Sodium 1 Tablet 2 TABLET PO ×2 (07:24→17:26)
[2023-01-14] MEDS: Pantoprazole Sodium 40 MG Tablet PO (07:24)
[2023-01-14] MEDS: APIXABAN 5 MG TABLET PO ×2 (07:24→17:26)
[2023-01-14] MEDS: Metoprolol Tartrate 50 MG Tablet PO (07:24)
[2023-01-14] MEDS: Losartan Potassium 50 MG Tablet PO (07:24)
[2023-01-14] MEDS: Nystatin Powder 15gm Bottle 1 APPLIC TOPICAL ×3 (07:25→20:46)
[2023-01-14] MEDS: Menthol/Lanolin/Calamine/Znox 113 GM Tube 1 APPLIC TOPICAL ×2 (07:25→17:25)
[2023-01-14] MEDS: Ensure Plus High Protein 120 ML LIQUID PO ×4 (07:25→20:46)
[2023-01-14] MEDS: Levothyroxine 25 MCG TABLET PO (07:25)
[2023-01-14] MEDS: Acetaminophen 500 MG Tablet 1000 MG PO (08:12)
[2023-01-14 13:56] VITALS: BP 119/58; PULSE 76; RESP 16; TEMP 36.2; O2SAT 94
--- NOTE | 2023-01-14 14:42 | NURSING ---
PT DAUGHTER AND PT CRYING WHEN ENTERED ROOM. ASKED IF THERE WAS SOME THING WE COULD HELP WITH. PT DAUGHTER STATED THAT HER DAD WAS HAVING A BAD DAY AND WAS UPSET THAT HE COULDN'T REMEMBER THINGS LIKE HE USE TO AND MISSES BEING AT HOME. TALKED TO PT AND DAUGHTER FOR A WHILE,BOTH FELT BETTER AND STATED THAT HIS WAS COMING IN LATER. WILL CONTINUE TO MONITOR. RN AWARE.
[2023-01-14] MEDS: Mirtazapine 15 MG Tablet 7.5 MG PO (20:47)
[2023-01-14] MEDS: Atorvastatin Calcium 40 MG Tablet PO (20:47)
[2023-01-14 20:48] VITALS: BP 110/51; PULSE 78
[2023-01-14] MEDS: Metoprolol Tartrate 100 MG Tablet PO (20:48)
[2023-01-15] MEDS: Arthritis Pain Compound 60 CLICK TUBE TOPICAL ×2 (05:52→17:39)
[2023-01-15] MEDS: Nystatin Powder 15gm Bottle 1 APPLIC TOPICAL ×3 (05:52→21:25)
[2023-01-15] MEDS: Ensure Plus High Protein 120 ML LIQUID PO ×4 (05:52→21:19)
[2023-01-15 05:53] VITALS: BP 134/79; PULSE 78
[2023-01-15] MEDS: Senna/Docusate Sodium 1 Tablet 2 TABLET PO (05:53)
[2023-01-15] MEDS: Losartan Potassium 50 MG Tablet PO (05:53)
[2023-01-15] MEDS: Levothyroxine 25 MCG TABLET PO (05:53)
[2023-01-15] MEDS: Metoprolol Tartrate 50 MG Tablet PO (05:53)
[2023-01-15] MEDS: Pantoprazole Sodium 40 MG Tablet PO (05:54)
[2023-01-15] MEDS: APIXABAN 5 MG TABLET PO ×2 (05:54→17:38)
[2023-01-15] MEDS: Menthol/Lanolin/Calamine/Znox 113 GM Tube 1 APPLIC TOPICAL ×2 (05:57→17:37)
--- NOTE | 2023-01-15 09:25 | MDS.RN ---
Information for the mds was obtained from review of the clinical record, interview of resident, staff, and direct observation of resident's care.
[2023-01-15 10:20] VITALS: PULSE 80; RESP 18; O2SAT 98
[2023-01-15 14:00] VITALS: BP 107/63; PULSE 80; RESP 16; TEMP 36.3; O2SAT 99
[2023-01-15] MEDS: Hydrocortisone 2.5% Crm 1 APPLIC TOPICAL (17:37)
[2023-01-15] MEDS: Mirtazapine 15 MG Tablet 7.5 MG PO ×2 (21:19→21:25)
[2023-01-15] MEDS: Atorvastatin Calcium 40 MG Tablet PO (21:20)
[2023-01-15 21:24] VITALS: BP 108/59; PULSE 92
[2023-01-15] MEDS: Metoprolol Tartrate 100 MG Tablet PO (21:24)
[2023-01-16 05:30] VITALS: BP 131/64; PULSE 68
[2023-01-16] MEDS: Levothyroxine 25 MCG TABLET PO (05:30)
[2023-01-16] MEDS: Metoprolol Tartrate 50 MG Tablet PO (05:30)
[2023-01-16] MEDS: Senna/Docusate Sodium 1 Tablet 2 TABLET PO ×2 (05:30→17:40)
[2023-01-16] MEDS: Pantoprazole Sodium 40 MG Tablet PO (05:30)
[2023-01-16] MEDS: Ensure Plus High Protein 120 ML LIQUID PO ×4 (05:30→20:22)
[2023-01-16] MEDS: Arthritis Pain Compound 60 CLICK TUBE TOPICAL ×2 (05:31→17:40)
[2023-01-16] MEDS: Losartan Potassium 50 MG Tablet PO (05:31)
[2023-01-16] MEDS: APIXABAN 5 MG TABLET PO ×2 (05:31→17:40)
[2023-01-16] MEDS: Nystatin Powder 15gm Bottle 1 APPLIC TOPICAL ×3 (05:31→20:22)
[2023-01-16] MEDS: Menthol/Lanolin/Calamine/Znox 113 GM Tube 1 APPLIC TOPICAL ×2 (05:32→17:40)
[2023-01-16 05:39] VITALS: BP 130/67; PULSE 82; RESP 16; TEMP 36.7; O2SAT 98
--- NOTE | 2023-01-16 11:04 | CASEMGMT ---
Social Work SW received call from pt son in law Lopez Brenner ([phone]). Lopez stating he would like a medical update physician. SW explained that he is not on contact list and therefore pt would have to give permission. Lopez also stating that family are considering discharge options including [facility], [facility] and now possibly [facility]. Team meeting to be held on Thursday to discuss discharge recommendations. Lopez would appreciate call after that meeting to recieve recommendations and move forward with discharge planning. AMY met with pt and introduced self and role of SW. SW informed pt of Lopez's request to receive information. Pt is agreeable. Phone call placed to [facility] Joel Hartman and situation explained. Joel agreeable to Lopez's name being added to demographic sheet and permission given for staff to give Lopez information. Physician updated. CATHI Damico
[2023-01-16 16:00] VITALS: BP 91/61; PULSE 73; RESP 16; TEMP 36.3; O2SAT 99
[2023-01-16 20:07] VITALS: BP 120/95; PULSE 82
[2023-01-16] MEDS: Metoprolol Tartrate 100 MG Tablet PO (20:07)
[2023-01-16] MEDS: Atorvastatin Calcium 40 MG Tablet PO (20:07)
[2023-01-16 20:24] VITALS: O2SAT 95
[2023-01-17] MEDS: Arthritis Pain Compound 60 CLICK TUBE TOPICAL ×2 (05:07→17:34)
[2023-01-17 05:08] VITALS: BP 127/70; PULSE 78
[2023-01-17] MEDS: Levothyroxine 25 MCG TABLET PO (05:08)
[2023-01-17] MEDS: Pantoprazole Sodium 40 MG Tablet PO (05:08)
[2023-01-17] MEDS: Losartan Potassium 50 MG Tablet PO (05:08)
[2023-01-17] MEDS: Metoprolol Tartrate 50 MG Tablet PO (05:08)
[2023-01-17] MEDS: Senna/Docusate Sodium 1 Tablet 2 TABLET PO (05:08)
[2023-01-17] MEDS: APIXABAN 5 MG TABLET PO ×2 (05:08→17:34)
[2023-01-17] MEDS: Ensure Plus High Protein 120 ML LIQUID PO ×4 (05:09→21:09)
[2023-01-17] MEDS: Nystatin Powder 15gm Bottle 1 APPLIC TOPICAL ×3 (05:13→21:10)
[2023-01-17] MEDS: Menthol/Lanolin/Calamine/Znox 113 GM Tube 1 APPLIC TOPICAL ×2 (05:13→17:33)
[2023-01-17 11:00] VITALS: PULSE 61; RESP 18; O2SAT 95
[2023-01-17] MEDS: Hydrocortisone 2.5% Crm 1 APPLIC TOPICAL (11:01)
[2023-01-17] MEDS: Acetaminophen 500 MG Tablet 1000 MG PO (13:41)
[2023-01-17 14:00] VITALS: BP 112/61; PULSE 71; RESP 16; TEMP 36.4; O2SAT 98
[2023-01-17] MEDS: Atorvastatin Calcium 40 MG Tablet PO (21:09)
[2023-01-17 21:10] VITALS: BP 143/44; PULSE 79
[2023-01-17] MEDS: Metoprolol Tartrate 100 MG Tablet PO (21:10)
[2023-01-17] MEDS: Mirtazapine 15 MG Tablet 7.5 MG PO (21:11)
[2023-01-18] MEDS: Losartan Potassium 50 MG Tablet PO (05:21)
[2023-01-18] MEDS: Levothyroxine 25 MCG TABLET PO (05:22)
[2023-01-18] MEDS: APIXABAN 5 MG TABLET PO ×2 (05:22→18:14)
[2023-01-18] MEDS: Ensure Plus High Protein 120 ML LIQUID PO ×4 (05:22→21:08)
[2023-01-18] MEDS: Pantoprazole Sodium 40 MG Tablet PO (05:22)
[2023-01-18 05:23] VITALS: BP 112/68; PULSE 77
[2023-01-18] MEDS: Nystatin Powder 15gm Bottle 1 APPLIC TOPICAL ×3 (05:23→21:10)
[2023-01-18] MEDS: Metoprolol Tartrate 50 MG Tablet PO (05:23)
[2023-01-18] MEDS: Menthol/Lanolin/Calamine/Znox 113 GM Tube 1 APPLIC TOPICAL ×2 (05:23→18:12)
[2023-01-18] MEDS: Arthritis Pain Compound 60 CLICK TUBE TOPICAL ×2 (05:23→18:14)
[2023-01-18 14:00] VITALS: BP 124/62; PULSE 86; RESP 20; TEMP 36.7; O2SAT 98
[2023-01-18] MEDS: Atorvastatin Calcium 40 MG Tablet PO (21:08)
[2023-01-18 21:09] VITALS: BP 101/54; PULSE 91
[2023-01-18] MEDS: Metoprolol Tartrate 100 MG Tablet PO (21:09)
[2023-01-18] MEDS: Mirtazapine 15 MG Tablet 7.5 MG PO (21:10)
[2023-01-18 21:19] VITALS: BP 101/54; PULSE 91; RESP 16; TEMP 36.5; O2SAT 98
[2023-01-19] MEDS: Arthritis Pain Compound 60 CLICK TUBE TOPICAL ×2 (05:31→17:36)
[2023-01-19] MEDS: Menthol/Lanolin/Calamine/Znox 113 GM Tube 1 APPLIC TOPICAL ×2 (05:33→17:38)
[2023-01-19 05:34] VITALS: BP 114/68; PULSE 74
[2023-01-19] MEDS: Metoprolol Tartrate 50 MG Tablet PO (05:34)
[2023-01-19] MEDS: Levothyroxine 25 MCG TABLET PO (05:34)
[2023-01-19] MEDS: Ensure Plus High Protein 120 ML LIQUID PO ×4 (05:34→20:00)
[2023-01-19] MEDS: Losartan Potassium 50 MG Tablet PO (05:34)
[2023-01-19] MEDS: Pantoprazole Sodium 40 MG Tablet PO (05:34)
[2023-01-19] MEDS: APIXABAN 5 MG TABLET PO ×2 (05:35→17:36)
[2023-01-19] MEDS: Nystatin Powder 15gm Bottle 1 APPLIC TOPICAL ×3 (05:35→20:02)
[2023-01-19 05:57] LABS: Absolute Lymphocyte Count 1.45 X10^3/uL (0.83-4.51); Absolute Neutrophil Count 5.3 X10^3/uL (2.0-7.7); Basophil# 0.05 X10^3/uL; Basophil% 0.6 % (0-1); Eosinophil# 0.24 X10^3/uL; Hematocrit 34.6 % (40-54); Hemoglobin 10.8 g/dL (13.0-16.5); Lymphocyte # 1.45 X10^3/ul (0.83-4.51); Lymphocyte % 18.4 % (19-41); Mean Corp Hgb Conc 31.2 g/dL (32-36); Mean Corpuscular Hgb 31.6 pg (27.0-32.0); Mean Corpuscular Volume 101.2 fL (80-94); Mean Platelet Vol. 8.9 fl (6.2-12.0); Monocyte# 0.81 X10^3/uL; Monocyte% 10.3 % (0-10); NRBC Flagged by Analyzer 0 % (0-5); Neutrophil # 5.28 X10^3/uL (2.7-7.7); Neutrophil % 67.2 % (47-70); Platelet Count 417 K/mm3 (150-450); RBC Distribution Width CV 16.4 % (11.6-14.6); RBC Distribution Width SD 61.1 fl (35.1-43.9); Red Blood Count 3.42 M/mm3 (4.6-6.2); White Blood Count 7.9 K/mm3 (4.4-11.0)
[2023-01-19 06:57] LABS: Anion Gap 6 (5-15); BUN 31 mg/dL (7-18); BUN/Creat Ratio 30.4 RATIO (10-20); Calcium,Total 8.6 mg/dL (8.5-10.1); Chloride 112 mmol/L (98-107); Creatinine, Serum 1.02 mg/dL (0.70-1.30); EST Glomerular Filtration Rate 74 mL/min (>60); Est Glom Filt Rate - Afr Amer 89 mL/min (>60); Estimated Creatinine Clearance 48.03 ml/min; Glucose 79 mg/dL (74-106); Potassium 4.3 mmol/L (3.5-5.1); Sodium Level 143 mmol/L (136-145)
[2023-01-19 10:00] VITALS: PULSE 59; RESP 18; O2SAT 99
[2023-01-19 14:00] VITALS: BP 103/62; PULSE 72; RESP 16; TEMP 36.1; O2SAT 98
[2023-01-19] MEDS: Senna/Docusate Sodium 1 Tablet 2 TABLET PO (17:36)
[2023-01-19 20:01] VITALS: BP 113/64; PULSE 102
[2023-01-19] MEDS: Mirtazapine 15 MG Tablet 7.5 MG PO (20:01)
[2023-01-19] MEDS: Metoprolol Tartrate 100 MG Tablet PO (20:01)
[2023-01-19] MEDS: Atorvastatin Calcium 40 MG Tablet PO (20:01)
[2023-01-20] MEDS: Arthritis Pain Compound 60 CLICK TUBE TOPICAL ×2 (04:15→18:07)
[2023-01-20 04:16] VITALS: BP 128/65; PULSE 98
[2023-01-20] MEDS: Metoprolol Tartrate 50 MG Tablet PO (04:16)
[2023-01-20] MEDS: Losartan Potassium 50 MG Tablet PO (04:16)
[2023-01-20] MEDS: APIXABAN 5 MG TABLET PO ×2 (04:16→18:09)
[2023-01-20] MEDS: Levothyroxine 25 MCG TABLET PO (04:17)
[2023-01-20] MEDS: Cyanocobalamin (B12) 1,000 MCG/ML Vial 1000 MCG SC (04:17)
[2023-01-20] MEDS: Pantoprazole Sodium 40 MG Tablet PO (04:17)
[2023-01-20] MEDS: Senna/Docusate Sodium 1 Tablet 2 TABLET PO (04:17)
[2023-01-20] MEDS: Menthol/Lanolin/Calamine/Znox 113 GM Tube 1 APPLIC TOPICAL ×2 (04:22→18:08)
[2023-01-20] MEDS: Ensure Plus High Protein 120 ML LIQUID PO ×4 (04:22→20:31)
[2023-01-20] MEDS: Nystatin Powder 15gm Bottle 1 APPLIC TOPICAL ×3 (04:22→20:33)
[2023-01-20 09:29] VITALS: BMI 19.0
--- NOTE | 2023-01-20 13:42 | CASEMGMT ---
Social Work Spoke with BRENNEN Marroquin, to provide update on DC plans. IDT continuing to recommend 24/7 care with DC week of 01/26. BRENNEN inquired about extending another week. SW educated to pt's DC plan nor level of care will change, as pt will not become independent. BRENNEN expressed understanding and agreeable to have SW send referrals to [facility] for AL or SNF. SW sent referrals to both SNFs via [facility]. Will await outcome and then set DC date. SW to continue to follow. Judy Del Rosario, DIGITAL MARKETING OFFICER SUPERVISOR DECORATING
[2023-01-20 14:00] VITALS: BP 106/62; PULSE 86; RESP 16; TEMP 36.2; O2SAT 98
[2023-01-20 20:15] VITALS: O2SAT 95
[2023-01-20 20:31] VITALS: BP 128/74; PULSE 89
[2023-01-20] MEDS: Atorvastatin Calcium 40 MG Tablet PO (20:31)
[2023-01-20] MEDS: Metoprolol Tartrate 100 MG Tablet PO (20:31)
[2023-01-20] MEDS: Mirtazapine 15 MG Tablet 7.5 MG PO (20:32)
[2023-01-21 04:48] VITALS: BP 117/54; PULSE 80
[2023-01-21] MEDS: Losartan Potassium 50 MG Tablet PO (04:48)
[2023-01-21] MEDS: Levothyroxine 25 MCG TABLET PO (04:48)
[2023-01-21] MEDS: APIXABAN 5 MG TABLET PO ×2 (04:48→17:21)
[2023-01-21] MEDS: Metoprolol Tartrate 50 MG Tablet PO (04:48)
[2023-01-21] MEDS: Senna/Docusate Sodium 1 Tablet 2 TABLET PO ×2 (04:48→17:22)
[2023-01-21] MEDS: Pantoprazole Sodium 40 MG Tablet PO (04:48)
[2023-01-21] MEDS: Nystatin Powder 15gm Bottle 1 APPLIC TOPICAL ×3 (04:49→21:35)
[2023-01-21] MEDS: Ensure Plus High Protein 120 ML LIQUID PO ×4 (04:49→21:35)
[2023-01-21] MEDS: Menthol/Lanolin/Calamine/Znox 113 GM Tube 1 APPLIC TOPICAL ×2 (04:49→17:25)
[2023-01-21] MEDS: Arthritis Pain Compound 60 CLICK TUBE TOPICAL ×2 (11:29→17:25)
[2023-01-21 14:00] VITALS: BP 106/57; PULSE 70; RESP 16; TEMP 36.6; O2SAT 99
--- NOTE | 2023-01-21 15:04 | CASEMGMT ---
Addendum entered by Judy Del Rosario 01/22/23 11:14: PASRR completed and sent to [facility], along with DC paperwork. Original Note: Social Work [facility] and [facility] both can accept pt for SNF stay. present with pt. SW spoke with about SNF acceptance. prefers [facility] d/t location. Inquired about DC date. requesting DC 01/28. IDT agreeable. Inquired about transport. does not feel comfortable and prefers w/c transport. SW updated SNFs. [facility] to accept on 01/28 and speak with on pricing. Scheduled w/c transport for 1100 through [facility]. Plan: DC 01/28 to [facility] SNF, intermediate, private pay. FELIZ RivasW
--- NOTE | 2023-01-21 17:50 | CON.PCM.GI_ITS ---
HPI Consult Data Date of Consult: 01/21/23 HPI Narrative Reason for Consultation: Possible GI bleed HPI Narrative: AFSANEH AMADO, is a 87 M who presented on transfer from the TCU from rehabilitation. He is currently on Eliquis. He was sent over to rehabilitation from [facility]. While at [facility] he also had a CT scan of the abdomen and pelvis with contrast that showed a wedged shaped area of hypoattenuation in the spleen concerning for infarct, prominent irregular wall thickening at the gastroesophageal junction extending into the gastric cardia and concerning for an infiltrative neoplastic lesion, multiple areas of irregular wall thickening and mucosal hyperenhancement and segments of the ileum, some of which appeared narrowed .? He also had cholelithiasis and colonic diverticulosis.? An EGD was apparently done on 12/19/22.? The report from the upper endoscopy had shown a gastric polyp and gastric cardia of the stomach that was biopsied.? It did not appear to be neoplastic in nature.? Also noted was some thickening at the GE junction possibly secondary to achalasia. ?He had some inflammation consistent with gastritis in the gastric antrum that was also biopsied.? H. pylori staining and his still pathology for gastric intestinal metaplasia was pending.? Recommendations were work-up for possible motility abnormalities such as gastroparesis.? I was asked to see him due to some dark stools and decrease in hemoglobin. He underwent an upper endoscopy by myself and was discovered to have a bleeding gastric ulcer secondary to an ticoagulation. This was fixed in he was placed on Eliquis therapy after being previously on warfarin therapy. I was called back to see him due to some darkened stools that the patient was experiencing. His hemoglobin was 11 and is down at 10.8. [facility] Medical History (Updated 01/12/23 @ 00:01 by Background Dajohnny) Afib Cholelithiasis Chronic anticoagulation Compression fracture of L1 lumbar vertebra Diverticulosis HTN (hypertension) Stroke/cerebrovascular accident Home Medications apixaban 5 mg tablet 5 mg PO BID blood thinner 12/22/22 [History Last Taken Unknown] atorvastatin 40 mg tablet 40 mg PO QHS reduce cholesterol 12/22/22 [History Last Taken Unknown] losartan 50 mg tablet 50 mg PO DAILY bp 12/22/22 [History Last Taken Unknown] metoprolol tartrate 100 mg tablet 100 mg PO DAILY@2200 bp 12/22/22 [History Last Taken Unknown] metoprolol tartrate 50 mg tablet 50 mg PO DAILY bp 12/22/22 [History Last Taken Unknown] acetaminophen 500 mg tablet 1,000 mg PO Q6H PRN PRN Pain 1-10 Or Fever #0 tabs 01/04/23 [Rx Last Taken Unknown] cyanocobalamin (vitamin B-12) 1,000 mcg/mL injection solution 1,000 mcg IM DAILY B12 Deficiency 01/04/23 [History Last Taken Unknown] food supplemt, lactose-reduced 0.08 gram-1.5 kcal/mL oral liquid (Ensure Plus High Protein) 120 ml PO 4X/DAY Supplement 01/04/23 [History Last Taken Unknown] magnesium hydroxide 400 mg/5 mL oral suspension 30 ml PO .PRN X 1 PRN Constipation #0 mL 01/04/23 [Rx Last Taken Unknown] mirtazapine 15 mg tablet 7.5 mg PO QHS Mood 01/04/23 [History Last Taken Unknown] nystatin 100,000 unit/gram topical powder (Nyamyc) 1 applic topical TID Skin 01/04/23 [History Last Taken Unknown] sennosides 8.6 mg-docusate sodium 50 mg tablet (Stool Softener-Stimulant Laxative) 2 tab PO BID Constipation 01/04/23 [History Last Taken Unknown] Allergy/AdvReac Type Severity Reaction Status Date / Time No Known Allergies Allergy Verified 12/10/22 19:01 Family History Father Mental health problem His father and some of his brothers committed suicide. Pt tells me mental health problems go deep in the family. in his late 50's Mother Cancer She at the age of 68 from a cancer that was in her abdomen. 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 Smoking Status: Never smoker alcohol intake: never substance use type: does not use ROS Constitutional Constitutional: Denies chills, fever(s) or weight gain ENT HEENT: Denies headache(s), nasal congestion or nasal discharge Cardiovascular Cardiovascular: Denies chest pain or palpitations Respiratory/Chest Respiratory/Chest: Denies cough, excessive phlegm production or shortness of breath with exertion Gastrointestinal Gastrointestinal: Denies abdominal pain, nausea or vomiting Genitourinary Genitourinary: Denies dysuria Musculoskeletal Musculoskeletal: Denies joint pain or joint swelling Integumentary Integumentary: Denies rash or wounds Neurologic Neurologic: Denies focal weakness, numbness or tingling Psychiatric Psychiatric: Denies anxiety, auditory hallucinations, depression, homicidal ideation or suicidal ideation Physical Exam Const alert General Appearance: cooperative HEENT normocephalic Eyes PERRL and EOMs intact bilaterally Neck supple, no JVD and no carotid bruits Resp normal respiratory effort, normal air movement and clear to auscultation bilaterally Cardio Cardio Narrative: Irregularly irregular GI normal to inspection, nondistended, normoactive bowel sounds, non-tender and non-distended Extremity normal capillary refill General Extremity: Negative for edema Skin no rashes or lesions noted General Skin Exam: no breakdown Neuro Neuro Narrative: Left hemiparesis. Psych affect normal Appearance: appropriate Medical Records Data Medical Nutrition Assessment Dietitian: Malnutrition Criteria Met Start: 01/05/23 16:48 Freq: Status: Active Protocol: Document 01/21/23 13:23 [facility] (Rec: 01/21/23 13:23 [facility] [id number]) Nutrition Malnutrition Evidence of Malnutrition Exists Yes Malnutrition (moderate): Chronic Evidenced By Suboptimal Energy Intake ( Severe),Weight Loss (Severe) Clinical Problem Acute Disease or Injury Related Malnutrition Etiology severe, acute malnutrition related to inadequate energy intake w/ increased energy needs after stroke Signs/Symptoms as evidenced by unintentional wt loss of 7.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 Status Active Problem Recommendation Dietitian Recommendations/Changes continue regular diet given signs and symptoms of malnutrition; will continue magic cup at lunch; add fortified foods as able tid and ensure/fortified pudding w/ dinner; continue to provide ensure plus 120mL 4x/day w/ medpass d /t signs/symptoms of malnutrition continue appetite stimulant to help encourage increased po intake at meals Lab / Micro Data Result Diagrams: 01/19/23 05:10 01/19/23 05:10 Assessment & Plan Assessment/Plan (1) Stroke/cerebrovascular accident: (2) Afib: PLAN: On Eliquis. I would hold it for EGD tomorrow. (3) Weight loss, unintentional: PLAN: He should undergo an upper endoscopy and possibly colonoscopy. We will do upper endoscopy tomorrow. (4) Abnormal CT of the abdomen: (5) Nausea & vomiting: QUALIFIERS: Vomiting type: unspecified Qualified Code(s): R11.2 - Nausea with vomiting, unspecified PLAN: Nausea vomiting has resolved but he still is not eating well (6) Chronic anticoagulation: PLAN: Hold Eliquis (7) UGI bleed: PLAN: Recommend continue PPI and n.p.o. past midnight for possible EGD tomorrow. (8) Hypotension: (9) Severe protein-calorie malnutrition: Charges/Coding Visit Charges Inpatient E&M: 05003 SNF Init L1
--- NOTE | 2023-01-21 18:45 | DS.PCM_ITS ---
Providers Date of Admission: 01/04/23 Primary Care Physician: Dr. Attila Riojas MD Reason For Visit: CVA Diagnosis Discharge Diagnosis (1) Stroke/cerebrovascular accident: Status: Acute Code(s): I63.9 - Cerebral infarction, unspecified (2) Afib: Status: Inactive Code(s): I48.91 - Unspecified atrial fibrillation (3) Weight loss, unintentional: Status: Acute Code(s): R63.4 - Abnormal weight loss (4) Abnormal CT of the abdomen: Status: Acute Code(s): R93.5 - Abnormal findings on diagnostic imaging of other abdominal regions, including retroperitoneum (5) Nausea & vomiting: Status: Resolved Code(s): R11.2 - Nausea with vomiting, unspecified Qualifiers: Vomiting type: unspecified Qualified Code(s): R11.2 - Nausea with vomiting, unspecified (6) Chronic anticoagulation: Status: Chronic Code(s): Z79.01 - long-term (current) use of anticoagulants (7) UGI bleed: Status: Resolved Code(s): K92.2 - Gastrointestinal hemorrhage, unspecified (8) Hypotension: Status: Resolved Code(s): I95.9 - Hypotension, unspecified (9) Severe protein-calorie malnutrition: Status: Acute Code(s): E43 - Unspecified severe protein-calorie malnutrition Plan 87 year old male with below past medical history hospitalized for right sided stroke, left hemiparesis, TPA given, complicated by Vitamin B12 deficiency, and UGIB from gastric ulcers, admitted from with debility, here for rehabilitation, strengthening, prior to discharge home with . * Debility - PT/OT. * Pain - Tylenol 1000mg q6h prn pain (1-10). * Bowel - senna/colace 2 tablets bid, MOM 30ml po x 1 prn. * Adult immunization - Administer pneumonia vaccine, covid19 vaccine, flu vaccine as appropriate. * DVT prophylaxis - Not necessary, on Eliquis. * Atrial fibrillation - Metoprolol 50mg qam, 100mg qhs, Eliquis 5mg bid. * Hyperlipidemia - Atorvastatin 40mg qhs. * Vitamin B12 deficiency - B12 1000mcg sc qweek. * Nutrition - Ensure 120ml 4x/day. * Hypertension - Metoprolol 50mg qam, 100mg qhs, Losartan 50mg daily. * Insomnia/depression/appetite loss - Mirtazapine 7.5mg qhs, stable use, GDR not recommended. * Tinea Corporis - Nystatin powder topical tid. Medications at Discharge Home Medications apixaban 5 mg tablet 5 mg PO BID blood thinner 12/22/22 atorvastatin 40 mg tablet 40 mg PO QHS reduce cholesterol 12/22/22 losartan 50 mg tablet 50 mg PO DAILY bp 12/22/22 metoprolol tartrate 100 mg tablet 100 mg PO DAILY@2200 bp 12/22/22 metoprolol tartrate 50 mg tablet 50 mg PO DAILY bp 12/22/22 acetaminophen 500 mg tablet 1,000 mg PO Q6H PRN PRN Pain 1-10 Or Fever #0 tabs 01/04/23 food supplemt, lactose-reduced 0.08 gram-1.5 kcal/mL oral liquid (Ensure Plus High Protein) 120 ml PO 4X/DAY Supplement 01/04/23 magnesium hydroxide 400 mg/5 mL oral suspension 30 ml PO .PRN X 1 PRN Constipation #0 mL 01/04/23 mirtazapine 15 mg tablet 7.5 mg PO QHS Mood 01/04/23 nystatin 100,000 unit/gram topical powder (Nyamyc) 1 applic topical TID Skin 01/04/23 sennosides 8.6 mg-docusate sodium 50 mg tablet (Stool Softener-Stimulant Laxative) 2 tab PO BID Constipation 01/04/23 cyanocobalamin (vitamin B-12) 1,000 mcg/mL injection solution 1,000 mcg subcut QWEEK #0 mL 01/21/23 hydrocortisone 2.5 % topical cream 1 applic topical BID PRN PRN RASH/TOPICAL IRRITATION #0 grams 01/21/23 levothyroxine 25 mcg tablet 25 mcg PO 0600 #0 tabs 01/21/23 menthol 0.44 %-zinc oxide 20.6 % topical ointment (Calmoseptine) 1 applic topical BID #0 grams 01/21/23 pantoprazole 40 mg tablet,delayed release 40 mg PO DAILY #0 tabs 01/21/23 Hospital Course Operations None Procedures EGD Summary of Care Provided Minutes Spent on Discharge: 35 Hospital Course: 87 year old male with below past medical history hospitalized for right sided stroke, left hemiparesis, TPA given, complicated by Vitamin B12 deficiency, and UGIB from gastric ulcers, admitted from with debility, here for rehabilitation, strengthening, prior to discharge home with . 01/20/2023 Resident noted to have luis stools. 01/22/2023 Dr. Boone performing EGD, results pending. Discharge to [facility] 01/28/2023, intermediate, private pay. Physical Exam Const alert General Appearance: cooperative HEENT normocephalic Eyes PERRL and EOMs intact bilaterally Neck supple, no JVD and no carotid bruits Resp normal respiratory effort, normal air movement and clear to auscultation bilaterally Cardio regular rate and regular rhythm GI normal to inspection, nondistended, normoactive bowel sounds, non-tender and non-distended Extremity normal capillary refill General Extremity: Negative for edema Skin no rashes or lesions noted General Skin Exam: no breakdown Psych affect normal Appearance: appropriate Medical Records Data Medical Nutrition Assessment Dietitian: Malnutrition Criteria Met Start: 01/05/23 16:48 Freq: Status: Active Protocol: Document 01/21/23 13:23 [facility] (Rec: 01/21/23 13:23 [facility] [id number]) Nutrition Malnutrition Evidence of Malnutrition Exists Yes Malnutrition (moderate): Chronic Evidenced By Suboptimal Energy Intake ( Severe),Weight Loss (Severe) Clinical Problem Acute Disease or Injury Related Malnutrition Etiology severe, acute malnutrition related to inadequate energy intake w/ increased energy needs after stroke Signs/Symptoms as evidenced by 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 Status Active Problem Recommendation Dietitian Recommendations/Changes continue regular diet given signs and symptoms of malnutrition; will continue magic cup at lunch; add fortified foods as able tid and ensure/fortified pudding w/ dinner; continue to provide ensure plus 120mL 4x/day w/ medpass d /t signs/symptoms of malnutrition continue appetite stimulant to help encourage increased po intake at meals Weight / BMI Weight Weight: 63.503 kg Body Mass Index (BMI) 19.0 ABG / Lab / Microbiology Data Result Diagrams: 01/19/23 05:10 01/19/23 05:10 Microbiology: Microbiology 01/08/23 06:30 Nasal Secretion SARS-CoV-2 Antigen (Rapid) - Final 01/06/23 05:15 Nasal Secretion SARS-CoV-2 Antigen (Rapid) - Final D/C Instructions Discharge Diet: No restrictions Discharge Activity: Return to Normal Activity, May Shower and Use Walker Weight Bearing Status: Weight bearing as tolerated Call your doctor if you observe: Fever of 101 or Higher, Inability to urinate, Inability to have a bowel movement, Shortness of breath, Dizziness, Fainting spells, Swelling in the ankles, Chest pain and Uncontrolled pain Additional Instructions: Discharge to [facility] 01/28/2023, intermediate, private pay. Meaningful Use Info Meaningful Use Diagnoses (Choose all that apply): Ischemic CVA CVA Therapy Assessed for PT,OT and/or ST?: Yes Ischemic Stroke Antithrombotic order at d/c?: Yes Dx of Atrial fib/flutter?: Yes Anticoagulant at discharge?: Yes Statins at discharge?: Yes Primary Dx Acute Ischemic CVA?: Yes IV thrombolytic ordered during stay?: Yes Discharge Plan Admission Admit Date/Time: 01/04/23 13:40 Primary Reason for Your Visit: Debility. Attending Provider: Earl Johnson Chi Primary Care Provider: Attila Riojas Instructions Additional Instructions / Restrictions: Discharge to [facility] 01/28/2023, intermediate, private pay. Discharge Orders/Prescriptions Prescriptions: New levothyroxine 25 mcg Tablet 25 mcg PO 0600 Qty: 0 0RF pantoprazole 40 mg Tablet,Delayed Release (Dr/Ec) 40 mg PO DAILY Qty: 0 0RF cyanocobalamin (vitamin B-12) 1,000 mcg/mL Solution 1,000 mcg subcut QWEEK Qty: 0 0RF hydrocortisone 2.5 % Cream 1 applic topical BID PRN PRN (Reason: RASH/TOPICAL IRRITATION) Qty: 0 0RF Protocol: *Topical Application Instructions APPLICATION INSTRUCTIONS: Back. menthol-zinc oxide [Calmoseptine] 0.44-20.6 % Ointment 1 applic topical BID Qty: 0 0RF Protocol: *Topical Application Instructions APPLICATION INSTRUCTIONS: deedee buttocks Continued losartan 50 mg Tablet 50 mg PO DAILY atorvastatin 40 mg Tablet 40 mg PO QHS metoprolol tartrate 100 mg Tablet 100 mg PO DAILY@2200 metoprolol tartrate 50 mg Tablet 50 mg PO DAILY apixaban 5 mg Tablet 5 mg PO BID acetaminophen 500 mg Tablet 1,000 mg PO Q6H PRN PRN (Reason: Pain 1-10 Or Fever) Qty: 0 0RF magnesium hydroxide 400 mg/5 mL Suspension 30 ml PO .PRN X 1 PRN (Reason: Constipation) Qty: 0 0RF sennosides-docusate sodium [Stool Softener-Stimulant Laxat] 8.6-50 mg tablet 2 tab PO BID mirtazapine 15 mg tablet 7.5 mg PO QHS nystatin [Nyamyc] 100,000 unit/gram powder 1 applic topical TID Protocol: *Topical Application Instructions APPLICATION INSTRUCTIONS: Apply to umbilicus. Ensure Plus High Protein 0.08 gram-1.5 kcal/mL liquid 120 ml PO 4X/DAY Discontinued cyanocobalamin (vitamin B-12) 1,000 mcg/mL solution 1,000 mcg IM DAILY Referrals / Follow Up: Attila Riojas MD [Primary Care Provider] - Disposition Disposition (needs filled in before D/C Order can be placed): NonSkilled NH/Intermed Care
--- NOTE | 2023-01-21 18:55 | TREXTCAR_ITS ---
Diet Diet Order/Speech Therapy: 01/04/23 14:04 Diet: Regular - General Food consistency:: Regular Liquid Consistency:: [place]/Mildly Thick Type of Dietary Supplement:: MC @L, EP/for pudd @D Is pt able to select menu?: Yes Diet Comments: sips of water sparingly; Magic cup @L; fort pudding @D. fort foods prn tid Routine Orders/Code Status Code Status: DNRCC-A (No intubation.) Therapies Weight Bearing: Weight bearing as tolerated Extremity Affected:: Bilateral Lower Physical Therapy: Eval and Treat Occupational Therapy: Eval and Treat Speech Therapy: Eval and Treat Problem/Diagnosis (1) Stroke/cerebrovascular accident: Status: Acute Code(s): I63.9 - Cerebral infarction, unspecified Comment: I feel the majority of the cognitive dysfunction is due to B12 deficiency rather than to the stroke. Some of the emotional lability is possibly secondary to stroke. (2) Afib: Status: Inactive Code(s): I48.91 - Unspecified atrial fibrillation Comment: chronic persistent AF. Rate is adequately controlled. (3) Weight loss, unintentional: Status: Acute Code(s): R63.4 - Abnormal weight loss (4) Abnormal CT of the abdomen: Status: Acute Code(s): R93.5 - Abnormal findings on diagnostic imaging of other abdominal regions, including retroperitoneum (5) Nausea & vomiting: Status: Resolved Code(s): R11.2 - Nausea with vomiting, unspecified Comment: I suspect that the nausea that he has had since last summer was due to B12 deficiency. (6) Chronic anticoagulation: Status: Chronic Code(s): Z79.01 - [facility] (current) use of anticoagulants Comment: Eliquis has been restarted and hemoglobin remained stable. (7) UGI bleed: Status: Resolved Code(s): K92.2 - Gastrointestinal hemorrhage, unspecified Comment: Secondary to gastric ulcers. Currently getting Protonix 40 mg p.o. twice daily. Will follow-up with Dr. Boone as an outpatient. Hemoglobin is stable. (8) Hypotension: Status: Resolved Code(s): I95.9 - Hypotension, unspecified Comment: Resolved with hydration. (9) Severe protein-calorie malnutrition: Status: Acute Code(s): E43 - Unspecified severe protein-calorie malnutrition Comment: Appetite is improving with B12 supplementation and he is starting to eat more solid food. He is compliant with the dietary supplements provided by the dietitian. Plan 87 year old male with below past medical history hospitalized for right sided stroke, left hemiparesis, TPA given, complicated by Vitamin B12 deficiency, and UGIB from gastric ulcers, admitted from with debility, here for rehabilitatio n, strengthening, prior to discharge home with . * Debility - PT/OT. * Pain - Tylenol 1000mg q6h prn pain (1-10). * Bowel - senna/colace 2 tablets bid, MOM 30ml po x 1 prn. * Adult immunization - Administer pneumonia vaccine, covid19 vaccine, flu vaccine as appropriate. * DVT prophylaxis - Not necessary, on Eliquis. * Atrial fibrillation - Metoprolol 50mg qam, 100mg qhs, Eliquis 5mg bid. * Hyperlipidemia - Atorvastatin 40mg qhs. * Vitamin B12 deficiency - B12 1000mcg sc qweek. * Nutrition - Ensure 120ml 4x/day. * Hypertension - Metoprolol 50mg qam, 100mg qhs, Losartan 50mg daily. * Insomnia/depression/appetite loss - Mirtazapine 7.5mg qhs, stable use, GDR not recommended. * Tinea Corporis - Nystatin powder topical tid. Allergies/Procedures Done in Hospital Allergies No Known Allergies Allergy (Verified 12/10/22 19:01) Procedures: EGD Type of Care/Length of Stay Estimated LOS: More Than 30 Days Type of Care Needed: Intermediate Rehab Potential: Poor Prognosis: Fair Additional Orders/Day of Discharge Additional Orders: part B therapies Day of Discharge: 01/28/23 Dietary and Speech Recommendations Dietitian Recommendations/Changes: continue regular diet given signs and symptoms of malnutrition; will continue magic cup at lunch; add fortified foods as able tid and ensure/fortified pudding w/ dinner; continue to provide ensure plus 120mL 4x/day w/ medpass d/t signs/symptoms of malnutrition continue appetite stimulant to help encourage increased po intake at meals Discharge Plan Admission Admit Date/Time: 01/04/23 13:40 Primary Reason for Your Visit: Debility. Attending Provider: Earl Johnson Chi Primary Care Provider: Attila Riojas Instructions Additional Instructions / Restrictions: Discharge to [facility] 01/28/2023, intermediate, private pay. Discharge Orders/Prescriptions Prescriptions: New levothyroxine 25 mcg Tablet 25 mcg PO 0600 Qty: 0 0RF pantoprazole 40 mg Tablet,Delayed Release (Dr/Ec) 40 mg PO DAILY Qty: 0 0RF cyanocobalamin (vitamin B-12) 1,000 mcg/mL Solution 1,000 mcg subcut QWEEK Qty: 0 0RF hydrocortisone 2.5 % Cream 1 applic topical BID PRN PRN (Reason: RASH/TOPICAL IRRITATION) Qty: 0 0RF Protocol: *Topical Application Instructions APPLICATION INSTRUCTIONS: Back. menthol-zinc oxide [Calmoseptine] 0.44-20.6 % Ointment 1 applic topical BID Qty: 0 0RF Protocol: *Topical Application Instructions APPLICATION INSTRUCTIONS: deedee buttocks Continued losartan 50 mg Tablet 50 mg PO DAILY atorvastatin 40 mg Tablet 40 mg PO QHS metoprolol tartrate 100 mg Tablet 100 mg PO DAILY@2200 metoprolol tartrate 50 mg Tablet 50 mg PO DAILY apixaban 5 mg Tablet 5 mg PO BID acetaminophen 500 mg Tablet 1,000 mg PO Q6H PRN PRN (Reason: Pain 1-10 Or Fever) Qty: 0 0RF magnesium hydroxide 400 mg/5 mL Suspension 30 ml PO .PRN X 1 PRN (Reason: Constipation) Qty: 0 0RF sennosides-docusate sodium [Stool Softener-Stimulant Laxat] 8.6-50 mg tablet 2 tab PO BID mirtazapine 15 mg tablet 7.5 mg PO QHS nystatin [Nyamyc] 100,000 unit/gram powder 1 applic topical TID Protocol: *Topical Application Instructions APPLICATION INSTRUCTIONS: Apply to umbilicus. Ensure Plus High Protein 0.08 gram-1.5 kcal/mL liquid 120 ml PO 4X/DAY Discontinued cyanocobalamin (vitamin B-12) 1,000 mcg/mL solution 1,000 mcg IM DAILY Referrals / Follow Up: Attila Riojas MD [Primary Care Provider] - Disposition Disposition (needs filled in before D/C Order can be placed): NonSkilled NH/Intermed Care (1) Nausea & vomiting Qualifiers: Vomiting type: unspecified Qualified Code(s): R11.2 - Nausea with vomiting, unspecified
[2023-01-21] MEDS: Mirtazapine 15 MG Tablet 7.5 MG PO (21:35)
[2023-01-21] MEDS: Atorvastatin Calcium 40 MG Tablet PO (21:35)
[2023-01-21 21:36] VITALS: BP 138/74; PULSE 58
[2023-01-21] MEDS: Metoprolol Tartrate 100 MG Tablet PO (21:36)
--- NOTE | 2023-01-21 22:08 | NURSING ---
Dr hoyos saw pt late evening and wanting pt to have EGD in AM. NPO after MN and will hold Eliquis in AM. PT last dose of Eliquis was 1700 this evening.
--- NOTE | 2023-01-22 09:15 | NURSING ---
CALLED AND UPDATED ON THE TIME PT IS HAVING PROCEDURE WITH DR. ALVARENGA. STATED SHE WOULD BE IN AFTER LUNCH.
--- NOTE | 2023-01-22 12:43 | NURSING ---
Pt left for EGD at 1120, transported down by staff
[2023-01-22] MEDS: traMADol 50 MG Tablet PO (14:17)
[2023-01-22] MEDS: Acetaminophen 500 MG Tablet 1000 MG PO (14:18)
[2023-01-22] MEDS: Ensure Plus High Protein 120 ML LIQUID PO ×3 (14:19→20:55)
[2023-01-22] MEDS: Menthol/Lanolin/Calamine/Znox 113 GM Tube 1 APPLIC TOPICAL ×2 (14:20→18:07)
[2023-01-22] MEDS: Nystatin Powder 15gm Bottle 1 APPLIC TOPICAL ×3 (14:22→20:55)
[2023-01-22] MEDS: Levothyroxine 25 MCG TABLET PO (14:22)
[2023-01-22 14:23] VITALS: BP 144/72; PULSE 81
[2023-01-22] MEDS: Metoprolol Tartrate 50 MG Tablet PO (14:23)
[2023-01-22] MEDS: Losartan Potassium 50 MG Tablet PO (14:23)
[2023-01-22] MEDS: Pantoprazole Sodium 40 MG Tablet PO (14:23)
[2023-01-22 14:30] VITALS: BP 144/72; PULSE 81; RESP 16; O2SAT 100
--- NOTE | 2023-01-22 14:57 | NURSING ---
PT RETURNED TO FLOOR AT [address] ALVARENGA.
[2023-01-22] MEDS: Senna/Docusate Sodium 1 Tablet 2 TABLET PO (18:06)
[2023-01-22 19:45] VITALS: O2SAT 94
[2023-01-22 20:54] VITALS: BP 106/63; PULSE 104
[2023-01-22] MEDS: Mirtazapine 15 MG Tablet 7.5 MG PO (20:54)
[2023-01-22] MEDS: Metoprolol Tartrate 100 MG Tablet PO (20:54)
[2023-01-22] MEDS: Atorvastatin Calcium 40 MG Tablet PO (20:54)
[2023-01-23] MEDS: Arthritis Pain Compound 60 CLICK TUBE TOPICAL ×2 (05:46→18:06)
[2023-01-23 05:47] VITALS: BP 115/70; PULSE 88
[2023-01-23] MEDS: Metoprolol Tartrate 50 MG Tablet PO (05:47)
[2023-01-23] MEDS: Senna/Docusate Sodium 1 Tablet 2 TABLET PO ×2 (05:47→18:09)
[2023-01-23] MEDS: Ensure Plus High Protein 120 ML LIQUID PO ×4 (05:47→21:11)
[2023-01-23] MEDS: Losartan Potassium 50 MG Tablet PO (05:47)
[2023-01-23] MEDS: Pantoprazole Sodium 40 MG Tablet PO (05:48)
[2023-01-23] MEDS: APIXABAN 5 MG TABLET PO ×2 (05:48→18:08)
[2023-01-23] MEDS: Nystatin Powder 15gm Bottle 1 APPLIC TOPICAL ×2 (05:48→21:16)
[2023-01-23] MEDS: Levothyroxine 25 MCG TABLET PO (05:48)
[2023-01-23] MEDS: Menthol/Lanolin/Calamine/Znox 113 GM Tube 1 APPLIC TOPICAL ×2 (05:48→18:20)
[2023-01-23 14:00] VITALS: BP 126/69; PULSE 98; RESP 24; TEMP 36.6; O2SAT 98
[2023-01-23 15:08] VITALS: PULSE 86; RESP 15; O2SAT 98
--- NOTE | 2023-01-23 15:21 | NURSING ---
IV in left hand d/c
[2023-01-23] MEDS: traMADol 50 MG Tablet PO (18:09)
[2023-01-23] MEDS: Acetaminophen 500 MG Tablet 1000 MG PO (18:10)
[2023-01-23 21:15] VITALS: BP 133/68; PULSE 85; RESP 18
[2023-01-23] MEDS: Atorvastatin Calcium 40 MG Tablet PO (21:15)
[2023-01-23] MEDS: Metoprolol Tartrate 100 MG Tablet PO (21:15)
[2023-01-23] MEDS: Mirtazapine 15 MG Tablet 7.5 MG PO (21:16)
[2023-01-24] MEDS: Nystatin Powder 15gm Bottle 1 APPLIC TOPICAL ×3 (05:03→21:22)
[2023-01-24] MEDS: Ensure Plus High Protein 120 ML LIQUID PO ×4 (05:03→21:21)
[2023-01-24 05:04] VITALS: BP 142/72; PULSE 60
[2023-01-24] MEDS: Metoprolol Tartrate 50 MG Tablet PO (05:04)
[2023-01-24] MEDS: Losartan Potassium 50 MG Tablet PO (05:04)
[2023-01-24] MEDS: Pantoprazole Sodium 40 MG Tablet PO (05:04)
[2023-01-24] MEDS: Senna/Docusate Sodium 1 Tablet 2 TABLET PO (05:04)
[2023-01-24] MEDS: Levothyroxine 25 MCG TABLET PO (05:04)
[2023-01-24] MEDS: APIXABAN 5 MG TABLET PO ×2 (05:04→17:18)
[2023-01-24] MEDS: Menthol/Lanolin/Calamine/Znox 113 GM Tube 1 APPLIC TOPICAL ×2 (05:05→17:19)
[2023-01-24] MEDS: Arthritis Pain Compound 60 CLICK TUBE TOPICAL ×2 (05:05→17:18)
[2023-01-24 14:00] VITALS: BP 105/68; PULSE 87; RESP 16; TEMP 36.6; O2SAT 98
[2023-01-24] MEDS: Mirtazapine 15 MG Tablet 7.5 MG PO (21:20)
[2023-01-24] MEDS: Atorvastatin Calcium 40 MG Tablet PO (21:20)
[2023-01-24 21:21] VITALS: BP 135/81; PULSE 97
[2023-01-24] MEDS: Metoprolol Tartrate 100 MG Tablet PO (21:21)
[2023-01-25] MEDS: Menthol/Lanolin/Calamine/Znox 113 GM Tube 1 APPLIC TOPICAL ×2 (05:25→18:12)
[2023-01-25] MEDS: Arthritis Pain Compound 60 CLICK TUBE TOPICAL ×2 (05:25→18:15)
[2023-01-25] MEDS: Ensure Plus High Protein 120 ML LIQUID PO ×4 (05:25→20:17)
[2023-01-25] MEDS: Nystatin Powder 15gm Bottle 1 APPLIC TOPICAL ×3 (05:25→20:20)
[2023-01-25 05:26] VITALS: BP 138/73; PULSE 76
[2023-01-25] MEDS: Pantoprazole Sodium 40 MG Tablet PO (05:26)
[2023-01-25] MEDS: Metoprolol Tartrate 50 MG Tablet PO (05:26)
[2023-01-25] MEDS: APIXABAN 5 MG TABLET PO ×2 (05:26→18:12)
[2023-01-25] MEDS: Losartan Potassium 50 MG Tablet PO (05:26)
[2023-01-25] MEDS: Senna/Docusate Sodium 1 Tablet 2 TABLET PO ×2 (05:26→18:12)
[2023-01-25] MEDS: Levothyroxine 25 MCG TABLET PO (05:26)
[2023-01-25 14:00] VITALS: BP 108/46; PULSE 102; RESP 14; TEMP 36.4; O2SAT 99
[2023-01-25] MEDS: Mirtazapine 15 MG Tablet 7.5 MG PO (20:15)
[2023-01-25 20:16] VITALS: BP 134/70; PULSE 98
[2023-01-25] MEDS: Atorvastatin Calcium 40 MG Tablet PO (20:16)
[2023-01-25] MEDS: Metoprolol Tartrate 100 MG Tablet PO (20:16)
[2023-01-25 20:26] VITALS: O2SAT 95
[2023-01-26] MEDS: Arthritis Pain Compound 60 CLICK TUBE TOPICAL ×2 (05:49→17:48)
[2023-01-26 05:50] VITALS: BP 112/60; PULSE 87
[2023-01-26] MEDS: APIXABAN 5 MG TABLET PO ×2 (05:50→17:49)
[2023-01-26] MEDS: Senna/Docusate Sodium 1 Tablet 2 TABLET PO ×2 (05:50→17:49)
[2023-01-26] MEDS: Levothyroxine 25 MCG TABLET PO (05:50)
[2023-01-26] MEDS: Metoprolol Tartrate 50 MG Tablet PO (05:50)
[2023-01-26] MEDS: Pantoprazole Sodium 40 MG Tablet PO (05:50)
[2023-01-26] MEDS: Ensure Plus High Protein 120 ML LIQUID PO ×4 (05:51→20:43)
[2023-01-26] MEDS: Losartan Potassium 50 MG Tablet PO (05:51)
[2023-01-26] MEDS: Menthol/Lanolin/Calamine/Znox 113 GM Tube 1 APPLIC TOPICAL ×2 (05:53→17:48)
[2023-01-26] MEDS: Nystatin Powder 15gm Bottle 1 APPLIC TOPICAL ×3 (05:53→20:44)
[2023-01-26 05:55] LABS: Absolute Lymphocyte Count 1.45 X10^3/uL (0.83-4.51); Absolute Neutrophil Count 4.9 X10^3/uL (2.0-7.7); Basophil# 0.04 X10^3/uL; Basophil% 0.5 % (0-1); Eosinophils% 5.4 % (0-5); Hematocrit 35.3 % (40-54); Hemoglobin 11.2 g/dL (13.0-16.5); Lymphocyte # 1.45 X10^3/ul (0.83-4.51); Lymphocyte % 19.5 % (19-41); Mean Corp Hgb Conc 31.7 g/dL (32-36); Mean Corpuscular Hgb 31.5 pg (27.0-32.0); Mean Corpuscular Volume 99.2 fL (80-94); Mean Platelet Vol. 8.9 fl (6.2-12.0); Monocyte# 0.67 X10^3/uL; NRBC Flagged by Analyzer 0 % (0-5); Neutrophil # 4.86 X10^3/uL (2.7-7.7); Neutrophil % 65.3 % (47-70); Platelet Count 258 K/mm3 (150-450); RBC Distribution Width CV 15.1 % (11.6-14.6); RBC Distribution Width SD 55.6 fl (35.1-43.9); Red Blood Count 3.56 M/mm3 (4.6-6.2); White Blood Count 7.4 K/mm3 (4.4-11.0)
[2023-01-26 06:36] LABS: Anion Gap 4 (5-15); BUN 32 mg/dL (7-18); BUN/Creat Ratio 30.5 RATIO (10-20); Calcium,Total 8.8 mg/dL (8.5-10.1); Chloride 110 mmol/L (98-107); Creatinine, Serum 1.05 mg/dL (0.70-1.30); EST Glomerular Filtration Rate 71 mL/min (>60); Est Glom Filt Rate - Afr Amer 86 mL/min (>60); Glucose 88 mg/dL (74-106); Potassium 4.4 mmol/L (3.5-5.1); Sodium Level 142 mmol/L (136-145)
[2023-01-26 12:25] VITALS: PULSE 67; RESP 18; O2SAT 97
[2023-01-26 14:00] VITALS: BP 95/62; PULSE 52; RESP 22; TEMP 36.5; O2SAT 99
[2023-01-26 20:41] VITALS: BP 124/63; PULSE 88
[2023-01-26] MEDS: Atorvastatin Calcium 40 MG Tablet PO (20:41)
[2023-01-26] MEDS: Mirtazapine 15 MG Tablet 7.5 MG PO (20:41)
[2023-01-26] MEDS: Metoprolol Tartrate 100 MG Tablet PO (20:41)
[2023-01-27 05:25] VITALS: BP 138/65; PULSE 88
[2023-01-27] MEDS: APIXABAN 5 MG TABLET PO ×2 (05:25→18:09)
[2023-01-27] MEDS: Losartan Potassium 50 MG Tablet PO (05:25)
[2023-01-27] MEDS: Metoprolol Tartrate 50 MG Tablet PO (05:25)
[2023-01-27] MEDS: Levothyroxine 25 MCG TABLET PO (05:25)
[2023-01-27] MEDS: Pantoprazole Sodium 40 MG Tablet PO (05:25)
[2023-01-27] MEDS: Cyanocobalamin (B12) 1,000 MCG/ML Vial 1000 MCG SC (05:26)
[2023-01-27] MEDS: Ensure Plus High Protein 120 ML LIQUID PO ×4 (05:26→21:33)
[2023-01-27] MEDS: Menthol/Lanolin/Calamine/Znox 113 GM Tube 1 APPLIC TOPICAL ×2 (05:27→18:09)
[2023-01-27] MEDS: Nystatin Powder 15gm Bottle 1 APPLIC TOPICAL ×3 (05:27→21:36)
[2023-01-27] MEDS: Arthritis Pain Compound 60 CLICK TUBE TOPICAL (08:22)
[2023-01-27 09:42] VITALS: BMI 18.6
[2023-01-27 13:42] VITALS: BP 96/60; PULSE 69; RESP 16; TEMP 36.3; O2SAT 100
[2023-01-27 20:16] VITALS: PULSE 87; RESP 16; O2SAT 96
[2023-01-27] MEDS: Atorvastatin Calcium 40 MG Tablet PO (21:33)
[2023-01-27 21:34] VITALS: BP 113/57; PULSE 87
[2023-01-27] MEDS: Metoprolol Tartrate 100 MG Tablet PO (21:34)
[2023-01-27] MEDS: Mirtazapine 15 MG Tablet 7.5 MG PO (21:35)
[2023-01-28] MEDS: oxyCODONE 5 MG Tablet 2.5 MG PO (05:35)
[2023-01-28 05:37] VITALS: BP 125/66; PULSE 96
[2023-01-28] MEDS: Menthol/Lanolin/Calamine/Znox 113 GM Tube 1 APPLIC TOPICAL (05:37)
[2023-01-28] MEDS: Metoprolol Tartrate 50 MG Tablet PO (05:37)
[2023-01-28] MEDS: Losartan Potassium 50 MG Tablet PO (05:37)
[2023-01-28] MEDS: Pantoprazole Sodium 40 MG Tablet PO (05:37)
[2023-01-28] MEDS: Senna/Docusate Sodium 1 Tablet 2 TABLET PO (05:37)
[2023-01-28] MEDS: Levothyroxine 25 MCG TABLET PO (05:37)
[2023-01-28] MEDS: Ensure Plus High Protein 120 ML LIQUID PO (05:38)
[2023-01-28] MEDS: APIXABAN 5 MG TABLET PO (05:38)
[2023-01-28] MEDS: Nystatin Powder 15gm Bottle 1 APPLIC TOPICAL (05:38)
--- NOTE | 2023-01-28 08:43 | NURSING ---
Addendum entered by Eliana Oneill 01/28/23 10:54: Dr zuniga notified, no new orders, but make sure WVM aware of pt complaint and to monitor area for it getting worse. Updated, GADIEL Angel. Original Note: Pt notes he has had pain in Lt wrist since Midnight. Pt notes he told assistant shift supervisor nurse. He notes no specific accident or injury. He states he has a hx of gout. pain is 8-10. Pt had been given Oxy this Am by last shift nurse. Swelling is visible in Lt thumb and hand.
== END 2023-01-28 11:00 | disposition intermediate care facility (04) | DRG 56 ==
PROVIDERS: Admitting Provider Family Medicine Geriatric Medicine; PCP Family Medicine; Visit Provider Family Medicine Geriatric Medicine
DX: I69.354 Hemiplegia and hemiparesis following cerebral infarction affecting left non-dominant side (principal); K25.4 Chronic or unspecified gastric ulcer with hemorrhage; E43 Unspecified severe protein-calorie malnutrition; Z68.1 Body mass index [BMI] 19.9 or less, adult; I48.91 Unspecified atrial fibrillation; E53.8 Deficiency of other specified B group vitamins; B35.4 Tinea corporis; E78.5 Hyperlipidemia, unspecified; I10 Essential (primary) hypertension; I69.392 Facial weakness following cerebral infarction; I69.328 Other speech and language deficits following cerebral infarction; R19.5 Other fecal abnormalities; Z79.01 Long term (current) use of anticoagulants; F32.A Depression, unspecified; Z79.899 Other long term (current) drug therapy; Z23 Encounter for immunization
CPT/HCPCS: 36415; 71046; 73560; 80048; 82962; 85025; 87426; 87811; 90677; 92507; 92523; 92526; 92610; 93005; 97110; 97112; 97116; 97162; 97166; 97530; 97535; 97802; G0009; J3420

== ENCOUNTER 2023-01-22 11:36 | Day surgery (SDC) | payer MEDICARE, BC, SELFPAY ==
[2023-01-22] VITALS (8 sets, daily range): BP systolic 68–134; BP diastolic 47–75; PULSE 80–99; RESP 16–18; TEMP 36.1–36.8; O2SAT 95–100; BMI 19.0
--- NOTE | 2023-01-22 11:41 | EKG12_ITS ---
Test Reason : PRE-OP Blood Pressure : / mmHG Vent. Rate : 091 BPM Atrial Rate : 147 BPM P-R Int : 000 ms QRS Dur : 094 ms QT Int : 370 ms P-R-T Axes : 000 -38 079 degrees QTc Int : 455 ms Atrial fibrillation Left axis deviation Abnormal ECG When compared with ECG of 06-JAN-2023 00:53, Vent. rate has decreased BY 63 BPM Confirmed by KATHLEEN DAHL, CHRIS ([id number]), index editor SOFIYA CHAPA ([id number]) on 01/27/2023 8:55:09 AM Referred By: Attila Riojas Confirmed By:CHRIS WANG MD
[2023-01-22] MEDS: Lactated Ringers 1,000 ML 15 ML IV (11:47)
--- NOTE | 2023-01-22 11:59 | HP.PCM_ITS ---
History and Physical Date of Admission: 01/22/23 AFSANEH AMADO, is a 87 M who presented on transfer from the TCU from rehabilitation. He is currently on Eliquis.? He was sent over to rehabilitation from [facility]. While at [facility] he also had a CT scan of the abdomen and pelvis with contrast that showed a wedged shaped area of hypoattenuation in the spleen concerning for infarct, prominent irregular wall thickening at the gastroesophageal junction extending into the gastric cardia and concerning for an infiltrative neoplastic lesion, multiple areas of irregular wall thickening and mucosal hyperenhancement and segments of the ileum, some of which appeared narrowed .? He also had cholelithiasis and colonic diverticulosis.? An EGD was apparently done on 12/19/22.? The report from the upper endoscopy had shown a gastric polyp and gastric cardia of the stomach that was biopsied.? It did not appear to be neoplastic in nature.? Also noted was some thickening at the GE junction possibly secondary to achalasia. ?He had some inflammation consistent with gastritis in the gastric antrum that was also biopsied.? H. pylori staining and his still pathology for gastric intestinal metaplasia was pending.? Recommendations were work-up for possible motility abnormalities such as gastroparesis.? I was asked to see him due to some dark stools and decrease in hemoglobin.? He underwent an upper endoscopy by myself and was discovered to have a bleeding gastric ulcer secondary to anticoagulation.? This was fixed in he was placed on Eliquis therapy after being previously on warfarin therapy.? I was called back to see him due to some darkened stools that the patient was experiencing.? His hemoglobin was 11 and is down at 10.8. [facility] Medical History?(Updated 01/12/23 @ 00:01 by Background Phil) Afib Cholelithiasis Chronic anticoagulation Compression fracture of L1 lumbar vertebra Diverticulosis HTN (hypertension) Stroke/cerebrovascular accident Home Medications apixaban 5 mg tablet 5 mg PO BID blood thinner 12/22/22 [History Last Taken Unknown] atorvastatin 40 mg tablet 40 mg PO QHS reduce cholesterol 12/22/22 [History Last Taken Unknown] losartan 50 mg tablet 50 mg PO DAILY bp 12/22/22 [History Last Taken Unknown] metoprolol tartrate 100 mg tablet 100 mg PO DAILY@2200 bp 12/22/22 [History Last Taken Unknown] metoprolol tartrate 50 mg tablet 50 mg PO DAILY bp 12/22/22 [History Last Taken Unknown] acetaminophen 500 mg tablet 1,000 mg PO Q6H PRN PRN Pain 1-10 Or Fever #0 tabs 01/04/23 [Rx Last Taken Unknown] cyanocobalamin (vitamin B-12) 1,000 mcg/mL injection solution 1,000 mcg IM DAILY B12 Deficiency 01/04/23 [History Last Taken Unknown] food supplemt, lactose-reduced 0.08 gram-1.5 kcal/mL oral liquid (Ensure Plus High Protein) 120 ml PO 4X/DAY Supplement 01/04/23 [History Last Taken Unknown] magnesium hydroxide 400 mg/5 mL oral suspension 30 ml PO .PRN X 1 PRN Constipation #0 mL 01/04/23 [Rx Last Taken Unknown] mirtazapine 15 mg tablet 7.5 mg PO QHS Mood 01/04/23 [History Last Taken Unknown] nystatin 100,000 unit/gram topical powder (Nyamyc) 1 applic topical TID Skin 01/04/23 [History Last Taken Unknown] sennosides 8.6 mg-docusate sodium 50 mg tablet (Stool Softener-Stimulant Laxative) 2 tab PO BID Constipation 01/04/23 [History Last Taken Unknown] Allergy/AdvReac Type Severity Reaction Status Date / Time No Known Allergies Allergy ? ? Verified 12/10/22 19:01 Family History? Father Mental health problem ?? ? His father and some of his brothers committed suicide.? Pt tells me mental health problems go deep in the family.? in his late 50'sMother Cancer ?? ? She at the age of 68 from a cancer that was in her abdomen. Surgical History? History of appendectomy History of ear surgery History of knee surgery Social History? household members:? spouse housing:? house current occupation:? 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 Never smoker alcohol intake:? never substance use type:? does not use ROS Constitutional Constitutional: Denies chills, fever(s) or weight gain ENT HEENT: Denies headache(s), nasal congestion or nasal discharge Cardiovascular Cardiovascular: Denies chest pain or palpitations Respiratory/Chest Respiratory/Chest: Denies cough, excessive phlegm production or shortness of breath with exertion Gastrointestinal Gastrointestinal: Denies abdominal pain, nausea or vomiting Genitourinary Genitourinary: Denies dysuria Musculoskeletal Musculoskeletal: Denies joint pain or joint swelling Integumentary Integumentary: Denies rash or wounds Neurologic Neurologic: Denies focal weakness, numbness or tingling Psychiatric Psychiatric: Denies anxiety, auditory hallucinations, depression, homicidal ideation or suicidal ideation Physical Exam Const alert General Appearance: cooperative HEENT normocephalic Eyes PERRL and EOMs intact bilaterally Neck supple, no JVD and no carotid bruits Resp normal respiratory effort, normal air movement and clear to auscultation bilaterally Cardio Cardio Narrative: Irregularly irregular GI normal to inspection, nondistended, normoactive bowel sounds, non-tender and non-distended Extremity normal capillary refill General Extremity: Negative for edema Skin no rashes or lesions noted General Skin Exam: no breakdown Neuro Neuro Narrative: Left hemiparesis. Psych affect normal Appearance: appropriate Medical Records Data Medical Nutrition Assessment Dietitian: Malnutrition Criteria Met ? Start:? 01/05/23 16:48 Freq:? Status: Active? Protocol:?Document ? ? 01/21/23 13:23? SLA? (Rec: 01/21/23 13:23? SLA? [id number]) ?Nutrition ?? ? Malnutrition ? ? ? Evidence of Malnutrition Exists? Yes ? ? ? Malnutrition (moderate): ? Chronic ? ? ? Evidenced By ? Suboptimal Energy Intake ( ? Severe),Weight Loss (Severe) ?? ? Clinical Problem ? ? ? Acute Disease or Injury Related Malnutrition ? Etiology? severe, acute malnutrition ? related to inadequate energy ? intake w/ increased energy ? needs after stroke ? Signs/Symptoms? as evidenced by unintentional ? wt loss of 7.6kg/10% x 1 month ? captain room service; and 1% wt loss x 1 wk ? ago; estimated PO intake ? meeting <50% of estimated ? energy needs over past 1 month ? ; BMI <20. ? Status? Active Problem ?? ? Recommendation ? ? ? Dietitian Recommendations/Changes? continue regular diet given ? signs and symptoms of ? malnutrition; ? will continue magic cup at ? lunch; add fortified foods as ? able tid and ensure/fortified ? pudding w/ dinner; ? continue to provide ensure ? plus 120mL 4x/day w/ medpass d ? /t signs/symptoms of ? malnutrition ? continue appetite stimulant to ? help encourage increased po ? intake at meals Lab / Micro Data Result Diagrams: 01/19/23 05:10? 01/19/23 05:10? Assessment & Plan Assessment/Plan (1) Stroke/cerebrovascular accident: (2) Afib: PLAN: On Eliquis.? I would hold it for EGD tomorrow. (3) Weight loss, unintentional: PLAN: He should undergo an upper endoscopy and possibly colonoscopy.? We will do upper endoscopy tomorrow. (4) Abnormal CT of the abdomen: (5) Nausea & vomiting: QUALIFIERS: ?Vomiting type:?unspecified? Qualified Code(s):?R11.2 - Nausea with vomiting, unspecified PLAN: Nausea vomiting has resolved but he still is not eating well (6) Chronic anticoagulation: PLAN: Hold Eliquis (7) UGI bleed: PLAN:? Recommend continue PPI and n.p.o. for EGD. (8) Hypotension: (9) Severe protein-calorie malnutrition: I have examined the patient and the H&P has been reviewed. There are no clinical changes since date of exam.
--- NOTE | 2023-01-22 13:01 | OP.CCLET_ITS ---
01/22/2023 Attila Riojas Re : Upper GI endoscopy procedure for Girish Hartman Dear Shine This procedure was performed on January. My impressions and recommendations are as follows: Impressions : - Z-line irregular, 41 cm from the incisors. Biopsied. - Small hiatal hernia. - Normal second portion of the duodenum. Recommendations : - Await pathology results. - Continue present medications. My findings are described in the full procedure note, which is enclosed. If I can be of further assistance, please feel free to contact me at . Sincerely, Jean-Pierre Boone, 01/22/2023 1:01:09 PM This report has been signed electronically.
--- NOTE | 2023-01-22 13:01 | OP.EGD_ITS ---
Patient Name: Girish Hartman Procedure Date: 01/22/2023 12:41 PM Date of : 1935 Age: 87 Procedure: Upper GI endoscopy Indications: Epigastric abdominal pain, Melena Providers: Jean-Pierre Boone DO Medicines: Monitored Anesthesia Care Patient Profile: This is an 87 year old male. Refer to note in patient chart for documentation of history and physical. Patient has symptoms of acute epigastric abdominal pain and acute nausea. He is status post EGD for treatment of bleeding recently. Complications: No immediate complications. Procedure: Pre-Anesthesia Assessment: - Prior to the procedure, a History and Physical was performed, and patient medications and allergies were reviewed. The risks and benefits of the procedure and the sedation options and risks were discussed with the patient. All questions were answered and informed consent was obtained. Patient identification and proposed procedure were verified by the physician in the pre-procedure area. Mental Status Examination: alert and oriented. Airway Examination: normal oropharyngeal airway and neck mobility. Respiratory Examination: clear to auscultation. CV Examination: normal. Prophylactic Antibiotics: The patient does not require prophylactic antibiotics. Prior Anticoagulants: The patient has taken no previous anticoagulant or antiplatelet agents. After reviewing the risks and benefits, the patient was deemed in satisfactory condition to undergo the procedure. The anesthesia plan was to use monitored anesthesia care (MAC). Immediately prior to administration of medications, the patient was re-assessed for adequacy to receive sedatives. The heart rate, respiratory rate, oxygen saturations, blood pressure, adequacy of pulmonary ventilation, and response to care were monitored throughout the procedure. The physical status of the patient was re-assessed after the procedure. After obtaining informed consent, the endoscope was passed under direct vision. Throughout the procedure, the patient's blood pressure, pulse, and oxygen saturations were monitored continuously. The gastroscope was introduced through the mouth, and advanced to the second part of duodenum. The upper GI endoscopy was accomplished without difficulty. The patient tolerated the procedure well. Scope In: 12:55:07 PM Scope Out: 12:57:24 PM Total Procedure Duration Time 0 hours 2 minutes 17 seconds Findings: The Z-line was irregular and was found 41 cm from the incisors. Biopsies were taken with a cold forceps for histology. Verification of patient identification for the specimen was done. A small hiatal hernia was present. No other significant abnormalities were identified in a careful examination of the stomach. The second portion of the duodenum was normal. Impression: - Z-line irregular, 41 cm from the incisors. Biopsied. - Small hiatal hernia. - Normal second portion of the duodenum. Recommendation: - Await pathology results. - Continue present medications. Procedure Code(s): --- Professional --- 45181, Esophagogastroduodenoscopy, flexible, transoral; with biopsy, single or multiple CPT copyright 2017 [employer]. All rights reserved. The codes documented in this report are preliminary and upon health nurse review may be revised to meet current compliance requirements. Jean-Pierre Boone DO 01/22/2023 1:01:09 PM This report has been signed electronically. Number of Addenda: 0 Note Initiated On: 01/22/2023 12:41 PM
== END 2023-01-22 13:51 | disposition home or self-care (01) ==
LOC: EN 11:38 → AC 11:38
PROVIDERS: PCP Family Medicine; Referring Provider Family Medicine; Visit Provider Internal Medicine Gastroenterology
PROC: 0DJ08ZZ Inspection of Upper Intestinal Tract, Via Natural or Artificial Opening Endoscopic (ICD-10-PCS; CPT 43235; principal; 2023-01-22 12:25)
DX: Z01.818 Encounter for other preprocedural examination (principal); I48.91 Unspecified atrial fibrillation; I10 Essential (primary) hypertension; Z79.01 Long term (current) use of anticoagulants; K44.9 Diaphragmatic hernia without obstruction or gangrene; Z87.19 Personal history of other diseases of the digestive system
CPT/HCPCS: 43239; 93005; J7120; J2405

== ENCOUNTER → 2023-01-29 | Outpatient (REF) | payer MEDICARE, BC, SELFPAY ==
[2023-01-29 08:34] LABS: Absolute Lymphocyte Count 1.42 X10^3/uL (0.83-4.51); Absolute Neutrophil Count 4.3 X10^3/uL (2.0-7.7); Basophil# 0.03 X10^3/uL; Basophil% 0.4 % (0-1); Eosinophil# 0.37 X10^3/uL; Eosinophils% 5.2 % (0-5); Hematocrit 35.1 % (40-54); Hemoglobin 11.1 g/dL (13.0-16.5); Lymphocyte # 1.42 X10^3/ul (0.83-4.51); Lymphocyte % 20.1 % (19-41); Mean Corp Hgb Conc 31.6 g/dL (32-36); Mean Corpuscular Hgb 30.8 pg (27.0-32.0); Mean Corpuscular Volume 97.5 fL (80-94); Mean Platelet Vol. 9.5 fl (6.2-12.0); Monocyte# 0.94 X10^3/uL; Monocyte% 13.3 % (0-10); NRBC Flagged by Analyzer 0 % (0-5); Neutrophil # 4.27 X10^3/uL (2.7-7.7); Neutrophil % 60.6 % (47-70); Platelet Count 243 K/mm3 (150-450); RBC Distribution Width CV 14.9 % (11.6-14.6); RBC Distribution Width SD 53.6 fl (35.1-43.9); White Blood Count 7.1 K/mm3 (4.4-11.0)
[2023-01-29 08:50] LABS: Vitamin B12 1894 pg/mL (211-911)
[2023-01-29 08:59] LABS: ALB/GLOB Ratio 0.7 RATIO (0.9-2.4); AST(SGOT) 16 U/L (15-37); Alanine Aminotransfer ALT/SGPT 12 U/L (16-61); Albumin, Serum 2.7 g/dL (3.2-5.0); Alkaline Phosphatase 67 U/L (45-117); Anion Gap 8 (5-15); BUN 46 mg/dL (7-18); BUN/Creat Ratio 39.7 RATIO (10-20); Calcium,Total 8.8 mg/dL (8.5-10.1); Chloride 111 mmol/L (98-107); Cholesterol 83 mg/dL (200); Creatinine, Serum 1.16 mg/dL (0.70-1.30); EST Glomerular Filtration Rate 64 mL/min (>60); Est Glom Filt Rate - Afr Amer 77 mL/min (>60); Globulin 4.1 g/dL (2.2-4.2); Glucose 81 mg/dL (74-106); High Density Lipoprotein 41 mg/dL; Potassium 4.2 mmol/L (3.5-5.1); Protein, Total 6.8 g/dL (6.4-8.2); Sodium Level 142 mmol/L (136-145); Thyroid Stim Hormone (TSH) 4.16 uIU/mL (0.358-3.74); Triglycerides 37 mg/dL; Uric Acid 5.5 mg/dL (3.5-7.2); Very Low Density Lipoprotein 7 mg/dL (5-40)
== END ==
LOC: OLS.WHLEAS 05:00
PROVIDERS: PCP Family Medicine; Visit Provider Internal Medicine
DX: E78.5 Hyperlipidemia, unspecified (principal); I69.354 Hemiplegia and hemiparesis following cerebral infarction affecting left non-dominant side; I48.20 Chronic atrial fibrillation, unspecified; I69.391 Dysphagia following cerebral infarction; Z79.899 Other long term (current) drug therapy
CPT/HCPCS: 36415; 80053; 80061; 82607; 84443; 84550; 85025

== ENCOUNTER → 2023-02-12 | Outpatient (REF) | payer MEDICARE, BC, SELFPAY ==
[2023-02-12 10:35] LABS: Absolute Lymphocyte Count 1.67 X10^3/uL (0.83-4.51); Absolute Neutrophil Count 3.9 X10^3/uL (2.0-7.7); Basophil# 0.08 X10^3/uL; Basophil% 1.2 % (0-1); Eosinophil# 0.21 X10^3/uL; Eosinophils% 3.2 % (0-5); Hematocrit 42.7 % (40-54); Hemoglobin 13.4 g/dL (13.0-16.5); Lymphocyte # 1.67 X10^3/ul (0.83-4.51); Lymphocyte % 25.4 % (19-41); Mean Corp Hgb Conc 31.4 g/dL (32-36); Mean Corpuscular Hgb 30.2 pg (27.0-32.0); Mean Corpuscular Volume 96.4 fL (80-94); Mean Platelet Vol. 9.1 fl (6.2-12.0); Monocyte# 0.67 X10^3/uL; Monocyte% 10.2 % (0-10); NRBC Flagged by Analyzer 0 % (0-5); Neutrophil # 3.94 X10^3/uL (2.7-7.7); Neutrophil % 59.8 % (47-70); Platelet Count 440 K/mm3 (150-450); RBC Distribution Width CV 14.9 % (11.6-14.6); RBC Distribution Width SD 52.9 fl (35.1-43.9); Red Blood Count 4.43 M/mm3 (4.6-6.2); White Blood Count 6.6 K/mm3 (4.4-11.0)
[2023-02-12 10:50] LABS: Anion Gap 6 (5-15); BUN 24 mg/dL (7-18); BUN/Creat Ratio 19.5 RATIO (10-20); Calcium,Total 9.3 mg/dL (8.5-10.1); Chloride 108 mmol/L (98-107); Creatinine, Serum 1.23 mg/dL (0.70-1.30); EST Glomerular Filtration Rate 59 mL/min (>60); Est Glom Filt Rate - Afr Amer 72 mL/min (>60); Glucose 76 mg/dL (74-106); Potassium 3.7 mmol/L (3.5-5.1); Sodium Level 139 mmol/L (136-145)
== END ==
LOC: OLS.WHLEAS 06:15
PROVIDERS: PCP Family Medicine; Visit Provider Nurse Practitioner Adult Health
DX: I10 Essential (primary) hypertension (principal)
CPT/HCPCS: 36415; 80048; 85025

== ENCOUNTER 2025-10-31 09:22 | Emergency (ER) | payer MEDICARE, BC, SELFPAY ==
[2025-10-31] VITALS (12 sets, daily range): BP systolic 101–121; BP diastolic 66–88; PULSE 62–95; RESP 14–28; TEMP 36.3–36.6; O2SAT 98; BMI 19.3
--- NOTE | 2025-10-31 10:03 | CT_ITS ---
PROCEDURE: ABDOMEN/PELVIS W IV CONT ONLY 10/31/2025 REASON FOR EXAM: EPIGASTRIC ABDOMINAL PAIN TECHNIQUE: Procedure Code: CTABDPELIV Modality: CT Procedure: ABDOMEN/PELVIS W IV CONT ONLY Contiguous axial scans of 3.75 mm slice thicknesses. Sagittal and coronal reconstruction images were obtained. One or more dose reduction techniques were used (e.g., automated exposure control, adjustment of mA and/or kv according to patient size, use of iterative reconstruction technique). CONTRAST: Isovue-300 VOLUME: 93 mL RADIATION DOSE SUMMARY: CTDlvol: 10.25 mGy DLP: 463.35 mGycm COMPARISON: No relevant prior. FINDINGS: Lung bases: No abnormalities. Elevation of the left hemidiaphragm. Extensive coronary artery calcifications. Liver: Diminished attenuation of the liver. No hepatomegaly. Small cyst along the dome of the liver, axial image 29, coronal image 26. Gallbladder: Multiple gallstones, axial image 46. Spleen: Normal in size and attenuation.. Pancreas: No masses or ductal dilatation. Adrenals: No nodules are gland thickening. Kidneys: Medial left inferior pole cyst measuring 4.0 x 3.1 cm. Lateral left 3.1 x 2.8 cm. A lateral midpole left renal cyst measuring 3.1 x 2.8 cm. Alcova-shaped calcification on the dependent wall of the left renal pelvis measuring 0.7 cm, axial image 40. Right inferior pole cyst measuring 1.5 cm in diameter. Hyperdense mass, midpole of the right kidney, axial image 49, coronal image 49 measuring 1.7 cm. Bladder: Unremarkable. Reproductive Organs: Unremarkable. Bowel: No evidence of obstruction. No bowel lesions. Appendix: Unremarkable. Lymph nodes: No suspicious lymphadenopathy. Vasculature: Severe atherosclerotic tortuosity and calcification of the aortoiliac arteries. Peritoneum / Retroperitoneum: No masses, free air, or free fluid. Anterior abdominal wall: Small left fat and bowel containing inguinal hernia, axial image 88. Bones: Multilevel spondylosis and degenerative disc disease. Compression abnormality of the L1 vertebra with loss of height in the range of 25%. Levocurvature of the lower lumbar spine. CT/Abdomen/Pelvis W IV Cont ONLY IMPRESSION: 1. Elevation of the left hemidiaphragm. 2. Coronary artery calcifications. 3. Suspicion of steatosis. 4. Small hepatic cyst. 5. Left renal cysts. 6. Nonobstructing left nephrolithiasis. 7. Right renal cyst. 8. Right renal angiomyolipoma. 9. Atherosclerotic tortuosity of the aortoiliac arteries. 10. Small left fat and bowel containing inguinal hernia. 11. Mild compression abnormality of L1. 12. Other nonacute findings detailed above. Reading Location: [place] [id number]
--- NOTE | 2025-10-31 10:17 | EX.ED.DYSGE1 ---
HPI History of Present Illness Chief Complaint: Abd Pain Narrative Narrative: Chief complaint and HPI: 89-year-old male with past medical history of atrial fibrillation on Eliquis, HTN, history of CVA presents for evaluation of decreased appetite and weight loss. Patient states for the past several months he has had a decreased appetite resulting in weight loss. States that when he eats he frequently has dry heaving and sometimes epigastric abdominal pain. Associated symptom is nausea. He states that he saw his primary care physician without any workup. Family is concerned that he is dehydrated. He denies any fever, chills, shortness of breath, chest pain, diarrhea, constipation, dysuria. Review of systems: See HPI Medications: As listed on the chart Allergies: As listed on the chart PFSH: Per chart Vital signs: As listed on the chart. Reviewed. Physical exam: Gen: A&O x3, NAD Head: Normocephalic, atraumatic Eyes: No sclera icterus, conjunctiva clear ENT: Moist mucous membranes Neck: Trachea midline, No JVD CV: Regular rate, irregular irregular rhythm, no murmurs, no peripheral edema Resp: Lungs CTA BL, no w/r/c GI: Abd soft, non-distended, non-tender, no r/r/g Musc: Full ROM, no deformity Skin: Warm, dry Neuro: Alert, oriented, grossly intact, sensation intact Psych: Cooperative, appropriate mood and affect [facility] Medical History Diverticulosis Cholelithiasis Chronic anticoagulation Compression fracture of L1 lumbar vertebra HTN (hypertension) Stroke/cerebrovascular accident Afib Home Medications ?Medication ?Instructions ?Recorded ?Last Taken ?Type apixaban 5 mg tablet 5 mg PO BID blood thinner 12/22/22 Unknown History atorvastatin 40 mg tablet 20 mg PO QHS reduce cholesterol 12/22/22 Unknown History losartan 50 mg tablet 50 mg PO DAILY bp 12/22/22 Unknown History metoprolol tartrate 100 mg tablet 25 mg PO DAILY@2200 bp 12/22/22 Unknown History metoprolol tartrate 50 mg tablet 50 mg PO DAILY bp 12/22/22 Unknown History acetaminophen 500 mg tablet 1,000 mg (2 x 500 mg) PO Q6H PRN 01/04/23 Unknown Rx PRN Pain 1-10 Or Fever #0 tabs food supplemt, lactose-reduced 120 ml PO 4X/DAY Supplement 01/04/23 Unknown History 0.08 gram-1.5 kcal/mL oral liquid (Ensure Plus High Protein) magnesium hydroxide 400 mg/5 mL 30 ml PO .PRN X 1 PRN Constipation 01/04/23 Unknown Rx oral suspension #0 mL mirtazapine 15 mg tablet 7.5 mg PO QHS Mood 01/04/23 Unknown History nystatin 100,000 unit/gram topical 1 applic topical TID Skin 01/04/23 Unknown History powder ([facility]) sennosides 8.6 mg-docusate sodium 2 tab PO BID Constipation 01/04/23 Unknown History 50 mg tablet (Stool Softener-Stimulant Laxative) cyanocobalamin (vitamin B-12) 1,000 mcg subcut QWEEK #0 mL 01/21/23 Unknown Rx 1,000 mcg/mL injection solution hydrocortisone 2.5 % topical cream 1 applic topical BID PRN PRN 01/21/23 Unknown Rx RASH/TOPICAL IRRITATION #0 grams menthol 0.44 %-zinc oxide 20.6 % 1 applic topical BID #0 grams 01/21/23 Unknown Rx topical ointment (Calmoseptine) pantoprazole 40 mg tablet,delayed 40 mg PO DAILY #0 tabs 01/21/23 Unknown Rx release furosemide 20 mg tablet (Lasix) 20 mg PO DAILY 10/31/25 Unknown History levothyroxine 25 mcg tablet 50 mcg PO 0600 10/31/25 Unknown History Allergy/AdvReac Type Severity Reaction Status Date / Time No Known Allergies Allergy Verified 10/31/25 09:28 Family History Father Mental health problem His father and some of his brothers committed suicide. Pt tells me mental health problems go deep in the family. in his late 50's Mother Cancer She at the age of 68 from a cancer that was in her abdomen. 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 [employer] Smoking Status: Never smoker alcohol intake: never substance use type: does not use EXAM Physical Exam Const Vital Signs: 10/31/25 09:23 10/31/25 09:47 10/31/25 11:09 Temperature 97.4 F L Temperature Source Oral Pulse Rate 62 95 84 Respiratory Rate 14 16 22 H Blood Pressure 109/70 Blood Pressure Mean 83 Oxygen Delivery Method Room Air 10/31/25 11:15 Temperature Temperature Source Pulse Rate 84 Respiratory Rate 28 H Blood Pressure 109/68 Blood Pressure Mean 82 Oxygen Delivery Method MDM MDM MDM Narrative Medical decision making narrative: 89-year-old male with past medical history of atrial fibrillation on Eliquis, HTN, history of CVA presents for evaluation of decreased appetite and weight loss. Patient states for the past several months he has had a decreased appetite resulting in weight loss. States that when he eats he frequently has dry heaving and sometimes epigastric abdominal pain. Associated symptom is nausea. He states that he saw his primary care physician without any workup. Family is concerned that he is dehydrated. Differential diagnosis includes was not limited to hiatal hernia, GERD, dysphagia, malignancy, PUD, electrolyte abnormality, dehydration, UTI. NS bolus ordered. Laboratory workup ordered including CT abdomen pelvis. CBC with mild leukocytosis 11.3. Patient has hemoconcentration of 17.1. Can see this with dehydration. Platelets unremarkable. CMP shows renal insufficiency with a BUN of 52 and a creatinine of 1.58. Previous labs are from 2022 when his BUN was 24 and his creatinine was normal at 1.23. No transaminitis. Lactic acid 3.5. Patient receiving fluids. Suspect dehydration. Magnesium level mildly elevated at 2.5. Lipase unremarkable. CT abdomen pelvis shows no acute intra-abdominal processes. Patient has elevation left heavy diaphragm, CAD. Suspicion of steatosis. Small hepatic cyst. Left renal and right cyst. Right renal angiomyolipoma. Small left fat and bowel containing inguinal hernia. Mild compression abnormality of L1. This point in time no clear etiology to explain patient's decreased appetite. UA negative for UTI. Repeat lactic acid 2.1 which is improved with fluids. At this point in time, no clear etiology to explain his symptoms. He needs to follow-up with his primary care physician as well as GI. He is already on pantoprazole. Recommend keeping up with fluid intake. Protein shakes for nutrients if little p.o. intake. Given his previous labs are from 2022 we will get repeat labs in 2 days to assess if renal insufficiency is acute versus chronic. Family and patient confirmed understand the plan. Patient about a discharge home. Return precautions explained. Impression: 1. Decreased appetite 2. Weight loss 3. Mild dehydration Lab Data Labs: Laboratory Results - last 24 hr 10/31/25 10/31/25 10/31/25 10:20 12:04 12:25 WBC 11.3 H RBC 5.71 Hgb 17.1 H Hct 51.8 MCV 90.7 MCH 29.9 MCHC 33.0 RDW Std Deviation 48.9 H RDW Coeff of Jonn 15.1 H Plt Count 314 MPV 9.2 Immature Gran % (Auto) 0.300 Neut % (Auto) 77.8 H Lymph % (Auto) 9.6 L Harlan % (Auto) 10.4 H Eos % (Auto) 1.5 Baso % (Auto) 0.4 Absolute Neuts (auto) 8.8 H Absolute Lymphs (auto) 1.08 Nucleated RBC % 0 Sodium 141 Potassium 4.5 Chloride 105 Carbon Dioxide 22.4 Anion Gap 14 BUN 52 H Creatinine 1.58 H Estim Creat Clear Calc 29.48 L Est GFR (MDRD) Non-Af 42 L BUN/Creatinine Ratio 33.0 H Glucose 78 Lactic Acid 3.5 H* 2.1 H* Calcium 9.8 Magnesium 2.5 H Total Bilirubin 1.08 AST 30 ALT 12 Alkaline Phosphatase 70 Total Protein 7.7 Albumin 3.8 Globulin 3.9 Albumin/Globulin Ratio 1.0 Lipase 46 Urine Color Yellow Urine Clarity Clear Urine pH 5.0 Ur Specific [place] 1.010 Urine Protein 15 H Urine Glucose (UA) Normal Urine Ketones Negative Urine Occult Blood 10 H Urine Nitrite Negative Urine Bilirubin Negative Urine Urobilinogen Normal Ur Leukocyte Esterase Negative Urine RBC 0 SEEN Urine WBC 0 SEEN Ur Squamous Epith Cells 0 SEEN Urine Bacteria 0 SEEN Urine Mucus 0 SEEN Radiography Diagnostic Testing: Clinical Impression(s) from Imaging Studies Abdomen/Pelvis CT 10/31/25 10:03 IMPRESSION: 1. Elevation of the left hemidiaphragm. 2. Coronary artery calcifications. 3. Suspicion of steatosis. 4. Small hepatic cyst. 5. Left renal cysts. 6. Nonobstructing left nephrolithiasis. 7. Right renal cyst. 8. Right renal angiomyolipoma. 9. Atherosclerotic tortuosity of the aortoiliac arteries. 10. Small left fat and bowel containing inguinal hernia. 11. Mild compression abnormality of L1. 12. Other nonacute findings detailed above. Reading Location: [place] [id number] Discharge Plan Triage Chief Complaint: Abd Pain ED Provider: Kasi Mike Dx/Rx/DC Orders Prescriptions: No Action losartan 50 mg Tablet 50 mg PO DAILY atorvastatin 40 mg Tablet 20 mg PO QHS metoprolol tartrate 100 mg Tablet 25 mg PO DAILY@2200 metoprolol tartrate 50 mg Tablet 50 mg PO DAILY apixaban 5 mg Tablet 5 mg PO BID acetaminophen 500 mg Tablet 1,000 mg PO Q6H PRN PRN (Reason: Pain 1-10 Or Fever) Qty: 0 0RF magnesium hydroxide 400 mg/5 mL Suspension 30 ml PO .PRN X 1 PRN (Reason: Constipation) Qty: 0 0RF sennosides-docusate sodium [Stool Softener-Stimulant Laxat] 8.6-50 mg tablet 2 tab PO BID mirtazapine 15 mg tablet 7.5 mg PO QHS nystatin [Nyamyc] 100,000 unit/gram powder 1 applic topical TID Protocol: *Topical Application Instructions APPLICATION INSTRUCTIONS: Apply to umbilicus. Ensure Plus High Protein 0.08 gram-1.5 kcal/mL liquid 120 ml PO 4X/DAY pantoprazole 40 mg Tablet,Delayed Release (Dr/Ec) 40 mg PO DAILY Qty: 0 0RF cyanocobalamin (vitamin B-12) 1,000 mcg/mL Solution 1,000 mcg subcut QWEEK Qty: 0 0RF hydrocortisone 2.5 % Cream 1 applic topical BID PRN PRN (Reason: RASH/TOPICAL IRRITATION) Qty: 0 0RF Protocol: *Topical Application Instructions APPLICATION INSTRUCTIONS: Back. menthol-zinc oxide [Calmoseptine] 0.44-20.6 % Ointment 1 applic topical BID Qty: 0 0RF Protocol: *Topical Application Instructions APPLICATION INSTRUCTIONS: [place] buttocks furosemide [Lasix] 20 mg tablet 20 mg PO DAILY levothyroxine 25 mcg Tablet 50 mcg PO 0600 Primary Care Provider: Attila Riojas Referrals: Attila Riojas MD [Primary Care Provider, Family Practice] Print Language: Georgian
[2025-10-31] MEDS: 0.9% Normal Saline (1000mL) 1,000 ML 999 ML IV (10:28)
[2025-10-31 10:39] LABS: Hematocrit 51.8 % (40-54); Hemoglobin 17.1 g/dL (13.0-16.5); Immature Granulocytes Count 0.030 X10^3/uL (0.0-0.0); Mean Corp Hgb Conc 33.0 g/dL (32-36); Mean Corpuscular Volume 90.7 fL (80-94); Mean Platelet Vol. 9.2 fl (6.2-12.0); NRBC Flagged by Analyzer 0 % (0-5); Platelet Count 314 K/mm3 (150-450); RBC Distribution Width CV 15.1 % (11.6-14.6); RBC Distribution Width SD 48.9 fl (35.1-43.9); Red Blood Count 5.71 M/mm3 (4.6-6.2); White Blood Count 11.3 K/mm3 (4.4-11.0)
[2025-10-31 11:18] LABS: Lipase 46 U/L (13-75); Magnesium 2.5 mg/dL (1.5-2.2)
[2025-10-31 11:20] LABS: AST(SGOT) 30 U/L (<=37); Alanine Aminotransfer ALT/SGPT 12 U/L (<=46); Albumin, Serum 3.8 g/dL (3.4-4.8); Alkaline Phosphatase 70 U/L (40-129); Anion Gap 14 (7-18); BUN 52 mg/dL (4-19); BUN/Creat Ratio 33.0 RATIO (10-20); Calcium,Total 9.8 mg/dL (7.6-11.0); Carbon Dioxide 22.4 mmol/L (20.0-29.0); Chloride 105 mmol/L (96-106); Estimated Creatinine Clearance 29.48 ml/min (50-250); Globulin 3.9 g/dL (2.2-4.2); Glucose 78 mg/dL (70-99); Potassium 4.5 mmol/L (3.5-5.1)
[2025-10-31 12:30] LABS: Mucous, Urine 0 SEEN /hpf (<or=2+); Red Blood Cells-Urine 0 SEEN /hpf (0-5); Squamous Epithelial Cells - UA 0 SEEN /hpf (0-5)
[2025-10-31 12:36] LABS: Color, Urine Yellow (Yellow); Glucose, Dipstick Normal (Normal); Ketone-Dipstick Negative (Negative); Leukocyte Esterase-Dipstick Negative /ul (Negative); Nitrite-Dipstick Negative (Negative); Occult Blood-Urine 10 /ul (Negative); Protein-Dipstick 15 mg/dl (Negative); Specific Gravity, Urine 1.010 (1.002-1.030); Urine Bilirubin Dipstick Negative (Negative)
[2025-10-31 14:35] LABS: Reflex Lactate? Y
[2025-10-31 16:06] LABS: Reflex Lactate? Y
== END 2025-10-31 13:19 | disposition home or self-care (01) ==
PROVIDERS: Emergency Provider Surgery; PCP Family Medicine; Visit Provider Surgery
DX: E86.0 Dehydration (principal); I48.91 Unspecified atrial fibrillation; R10.13 Epigastric pain; R63.4 Abnormal weight loss; R63.8 Other symptoms and signs concerning food and fluid intake; I10 Essential (primary) hypertension; Z79.01 Long term (current) use of anticoagulants; Z79.899 Other long term (current) drug therapy
CPT/HCPCS: 74177; 80053; 81001; 83605; 83690; 83735; 85025; 96360; 99283; Q9967; A4216

== ENCOUNTER 2025-11-07 09:01 | Outpatient (CLI) | payer MEDICARE, BC, SELFPAY ==
--- NOTE | 2025-11-07 09:28 | RAD_ITS ---
PROCEDURE: CHEST PA AND LATERAL 11/07/2025 REASON FOR EXAM: SHORTNESS OF BREATH TECHNIQUE: Procedure Code: RADCXR Modality: DX Procedure: CHEST PA AND LATERAL COMPARISON: None FINDINGS: Hardware: Satisfactory appearance of a replaced right glenohumeral joint Heart: The heart size is normal. Mediastinum: The mediastinal contour is unremarkable. Lungs: Chronic interstitial changes in both lung jones without a superimposed acute pulmonary process Bones: Degenerative bony changes with a dextroscoliosis RAD/Chest PA and Lateral IMPRESSION: Chronic interstitial changes, no superimposed acute pulmonary process Reading Location: [id number]
[2025-11-07 09:34] LABS: Hematocrit 48.9 % (40-54); Hemoglobin 16.4 g/dL (13.0-16.5); Immature Granulocytes Count 0.060 X10^3/uL (0.0-0.0); Mean Corp Hgb Conc 33.5 g/dL (32-36); Mean Corpuscular Volume 89.9 fL (80-94); Mean Platelet Vol. 9.0 fl (6.2-12.0); NRBC Flagged by Analyzer 0 % (0-5); Platelet Count 316 K/mm3 (150-450); RBC Distribution Width CV 15.0 % (11.6-14.6); RBC Distribution Width SD 49.2 fl (35.1-43.9); Red Blood Count 5.44 M/mm3 (4.6-6.2); White Blood Count 11.4 K/mm3 (4.4-11.0)
[2025-11-07 10:09] LABS: AST(SGOT) 27 U/L (<=37); Alanine Aminotransfer ALT/SGPT 15 U/L (<=46); Albumin, Serum 3.8 g/dL (3.4-4.8); Alkaline Phosphatase 71 U/L (40-129); Anion Gap 11 (7-18); BUN 35 mg/dL (4-19); BUN/Creat Ratio 25.3 RATIO (10-20); Calcium,Total 9.7 mg/dL (7.6-11.0); Carbon Dioxide 21.6 mmol/L (20.0-29.0); Chloride 106 mmol/L (96-106); Globulin 3.9 g/dL (2.2-4.2); Glucose 87 mg/dL (70-99); Potassium 4.9 mmol/L (3.5-5.1); Pro- Brain NATRIURETIC PEPTIDE 11811 pg/mL (<=1800)
[2025-11-07 10:10] LABS: FOLATES,SERUM (FOLIC ACID) 13.00 ng/mL (4.60-34.80)
[2025-11-07 10:24] LABS: CRP 50.00 mg/L (0.0-3.0); LDH 217 U/L (87-241); Magnesium 2.3 mg/dL (1.5-2.2)
[2025-11-07 10:59] LABS: Vitamin B12 896 pg/mL (180-914)
[2025-11-10 15:08] LABS: Albumin 3.2 g/dL (2.9-4.4); Carbohydrate Ag 19-9 2261 6 U/mL (0-35); Carcinoembryonic Antigen 2139 2.4 ng/mL (0.0-4.7); Gamma Globulin 1.4 g/dL (0.4-1.8); Immunoglobulin A 292 mg/dL (61-437); Immunoglobulin G 1525 mg/dL (603-1613); Immunoglobulin M 73 mg/dL (15-143); PROEL- TOTAL PROTEIN 6.8 g/dL (6.0-8.5)
== END 2025-11-07 23:59 | disposition home or self-care (01) ==
LOC: LAB 09:01
PROVIDERS: PCP Family Medicine; Referring Provider Internal Medicine Gastroenterology; Visit Provider Internal Medicine Gastroenterology
DX: E86.0 Dehydration (principal); I50.9 Heart failure, unspecified; I99.9 Unspecified disorder of circulatory system; E03.9 Hypothyroidism, unspecified; D55.1 Anemia due to other disorders of glutathione metabolism; R63.0 Anorexia; R06.02 Shortness of breath
CPT/HCPCS: 36415; 71046; 80053; 82378; 82607; 82746; 82784; 83605; 83615; 83735; 83880; 84100; 84165; 84443; 85025; 85652; 86140; 86301; 86334